=== PATIENT | female | born 1960 | race Hispanic/Latino ===

== ENCOUNTER 2017-11-25 18:40 | Inpatient (IN) | payer SELFPAY ==
--- NOTE | 2017-11-25 19:24 | RAD REPORT ---
EXAM DESCRIPTION: CT - Ct Stroke Brain Wo Cont - 11/25/2017 7:13 pm CLINICAL HISTORY: Bilateral numbness COMPARISON: None. TECHNIQUE: Computed axial tomography of the head was obtained. IV contrast was not requested. All CT scans are performed using dose optimization technique as appropriate and may include automated exposure control or mA/KV adjustment according to patient size. FINDINGS: An intracranial bleed is not seen . The ventricles are normal in caliber. No extra-axial fluid collection is noted. Fluid within the sinuses/ mastoids is not seen. IMPRESSION: No acute intracranial abnormality is seen. If patient's symptoms persist MRI of the bra in would be recommended. Stewart Sharpe the emergency room was notified at 720 p.m. on November 25, 2017
[2017-11-25 19:30] LABS: Absolute Lymphocytes (CBC) 2.7 K/uL (0.7-4.9); Absolute Monocytes 0.6 K/uL (0.1-1.3); Absolute Neutrophil 5.8 K/uL (1.8-8.0); Eosinophils % 3.9 % (0-4.4); Hematocrit 42.1 % (36.0-45.0); Lymphocytes % 27.9 % (15.3-44.8); MCH 30.6 pg (27.0-35.0); MCV 94.4 fL (80-100); MPV 9.1 fL (7.6-11.3); Monocytes % 6.6 % (3.3-12.3); RBC Red Blood Cell Count 4.46 M/uL (3.86-4.86)
[2017-11-25 19:34] LABS: Protime INR 0.97
[2017-11-25 19:37] LABS: Bicarbonate 27 mEq/L (21-31); Glucose Level 121 mg/dL (65-120); Potassium 3.6 mEq/L (3.6-5.0); Sodium Level 139 mEq/L (135-145)
[2017-11-25 19:38] LABS: BUN Blood Urea Nitrogen 12 mg/dL (6-20)
--- NOTE | 2017-11-25 19:45 | RAD REPORT ---
EXAM DESCRIPTION: Mickie Single View11/25/2017 7:14 pm CLINICAL HISTORY: Chest pain COMPARISON: none FINDINGS: The lungs appear clear of acute infiltrate. The heart is normal size IMPRESSION: No acute abnormalities displayed
[2017-11-25] MEDS ORDERED: ALPRAZOLAM 0.25 MG TABLET PO PRN (20:42)
--- NOTE | 2017-11-25 20:57 | ER ---
Nurse's Notes [facility] Name: Ade Holcomb Age: 57 yrs Sex: Female : 1960 Arrival Date: 11/25/2017 Time: 18:45 Bed 17 Private MD: Diagnosis: Cerebral infarction Presentation: 11/25 18:45 Presenting complaint: Child states: at 1730 pt served dinner and was normal. 1800 pt ch told son she felt numb and tingling in elena lower legs equally. then pt states she felt the numbness in elena upper arms. in the car on the way here she started saying repetitive things and then chattering her teeth. pt has been under stress at home. pt now is not talking much, states she feels tingling and numbness in her face. Transition of care: patient was not received from another setting of care. Onset of symptoms was November 25, 2017 at 18:00. Risk Assessment: Do you want to hurt yourself or someone else? Patient reports no desire to harm self or others. Initial Sepsis Screen: Does the patient meet any 2 criteria? No. Patient's initial sepsis screen is negative. Does the patient have a suspected source of infection? No. Patient's initial sepsis screen is negative. Care prior to arrival: None. 18:45 Method Of Arrival: Wheelchair 18:45 Acuity: MERLY 3 ch Triage Assessment: 18:45 General: Appears in no apparent distress. well groomed, Behavior is anxious, ch uncooperative. 18:45 Pain: Complains of pain in head and chest Pain currently is 8 out of 10 on a pain ch scale. Neuro: Level of Consciousness is lethargic, listless, Oriented to person, pt will not speak to me, pt will speak to dr meza and to her family in two word sentences. Panelboard Tank Pumper are weak bilaterally Weakness pt walks on her own, shuffling steps. pt states she has numbness and tingling to elena legs and arms per . pt moves all extremities very slowly and small amounts. . Reports dizziness, numbness tingling. Respiratory: Airway is patent Trachea midline Respiratory effort is even, unlabored, Respiratory pattern is regular, hyperventilation Breath sounds are clear bilaterally. GI: No signs and/or symptoms were reported involving the gastrointestinal system. : No signs and/or symptoms were reported regarding the genitourinary system. Derm: Skin is pale. Musculoskeletal: Circulation, motion, and sensation intact. Capillary refill < 3 seconds, in bilateral fingers. toes. Range of motion: intact in all extremities, Swelling absent. Historical: - Allergies: 19:11 No Known Allergies; ch - PMHx: 19:11 Arthritis; ch - PSHx: 19:11 Unable to obtain; ch - Immunization history:: Adult Immunizations up to date. - Social history:: Smoking status: Patient/guardian denies using tobacco. - Ebola Screening: : Patient negative for fever greater than or equal to 101.5 degrees Fahrenheit, and additional compatible Ebola Virus Disease symptoms Patient denies exposure to infectious person Patient denies travel to an Ebola-affected area in the 21 days before illness onset No symptoms or risks identified at this time. Screenin:17 Abuse screen: Denies threats or abuse. Denies injuries from another. Nutritional ch screening: No deficits noted. Tuberculosis screening: No symptoms or risk factors identified. Fall Risk None identified. 19:25 Patient tolerated one teaspoon of water. No drooling, immediate coughing, gurgling, or jd3 clearing of the throat was noted. The patient tolerated 90mL of water. No drooling, immediate coughing, gurgling, or clearing of the throat was noted. The patient passed the bedside swallow screening. Oral medications may be given as ordered. Contact Physician for further diet orders. Provider notified of bedside swallow screening results: Jeff Cheung MD. Assessment: 18:48 Reassessment: \T\ 1848 Dr. Meza in room to assess pt due to elena arm and leg involvement, ch but only L sided facial involvement. 18:53 Reassessment: code stroke called. 18:54 Reassessment: pt taken to CT on monitoring by me. Zulema in Ct assists. 19:05 Reassessment: Patient appears in no apparent distress at this time. Patient and/or ch family updated on plan of care and expected duration. Pain level reassessed. pt returned from ct. pt moves elena arms and legs, pt removes clip from her hair on her own. pt re adjusts herself in the bed, rolls onto her R side. pt strength is improved after ct, and pt will speak in full sentences. pt color is improved and pt rr is slower. report given to Toan at bedside. Dr. Cheung at bedside with pt to perform stoke scale assessment. 19:05 Derm: Skin is pink, warm \T\ dry. ch 19:05 Reassessment: pt returned from ct. report given at bedside to Toan. ch 19:08 Reassessment: Dr. Cheung at bedside to perform stroke scale. ch 19:20 Reassessment: EKG performed. ch 19:25 General: Appears uncomfortable, Behavior is cooperative, anxious. Pain: Denies pain. jd3 Neuro: Level of Consciousness is awake, alert, obeys commands, Oriented to person, place, time, situation, Appropriate for age Panelboard Tank Pumper are equal bilaterally Moves all extremities. Gait is steady, Speech is normal, Facial symmetry appears normal, Pupils are PERRLA, Intact. Cardiovascular: Heart tones S1 S2 present Capillary refill < 3 seconds Patient's skin is warm and dry. Rhythm is regular. Respiratory: Airway is patent Respiratory effort is even, unlabored, Respiratory pattern is regular, symmetrical, Breath sounds are clear bilaterally. GI: Abdomen is round Bowel sounds present X 4 quads. Patient currently denies nausea, vomiting. : No signs and/or symptoms were reported regarding the genitourinary system. EENT: No signs and/or symptoms were reported regarding the EENT system. Derm: Skin is intact, Skin is dry, Skin is normal, Skin temperature is warm. Musculoskeletal: Circulation, motion, and sensation intact. Range of motion: intact in all extremities. 19:42 Reassessment: X ray at bedside at 1854, lab at bedside at 1855. ch 20:30 Reassessment: Patient appears in no apparent distress at this time. Patient and/or jd3 family updated on plan of care and expected duration. Pain level reassessed. Patient is alert, oriented x 3, equal unlabored respirations, skin warm/dry/pink. Vital Signs: 18:45 BP 156 / 75; Pulse 91; Resp 16; Temp 98.3; Pulse Ox 99% on R/A; Pain 0/10; ch 19:52 BP 134 / 111; Pulse 85; Resp 17 S; Pulse Ox 95% on R/A; Pain 0/10; jd3 20:53 BP 133 / 67; Pulse 77; Resp 18 S; Pulse Ox 95% on R/A; Pain 0/10; jd3 22:37 BP 111 / 79; Pulse 82; Resp 18 S; Pulse Ox 96% on R/A; Pain 0/10; jd3 NIH Stroke Scale Scores: 19:08 NIHSS Score: 1 ch 19:20 NIHSS Score: 1 jd3 20:58 NIHSS Score: 2 gs 22:42 NIHSS Score: 0 jd3 ED Course: 18:45 Patient arrived in ED. ch 18:45 Arm band placed on right wrist. Patient placed in an exam room, on a stretcher, on engine monitor, on pulse oximetry. 18:45 bus monitor on. Pulse ox on. NIBP on. ch 18:45 Warm blanket given. ch 18:46 Jeff Cheung MD is Attending Physician. gs 18:52 Triage completed. ch 19:07 Gail Heath, PAULO is Primary Nurse. ch 19:13 CT Stroke Brain w/o Contrast In Process Unspecified. EDMS 19:14 X-ray completed. Portable x-ray completed in exam room. Patient tolerated procedure kp1 well. 19:15 XRAY Chest (1 view) - STROKE In Process Unspecified. EDMS 19:18 Inserted saline lock: 20 gauge in left antecubital area, using aseptic technique. Blood jd3 collected. 19:20 EKG completed in triage. Results shown to MD. ch 19:25 Patient has correct armband on for positive identification. Placed in gown. Bed in low jd3 position. Call light in reach. Side rails up X2. Adult w/ patient. 19:50 Armand Feng RN is Primary Nurse. jd3 20:55 John Levine MD is Hospitalizing Provider. gs 22:37 No provider procedures requiring assistance completed. Patient admitted, IV remains in jd3 place. Administered Medications: 22:38 Drug: Aspirin Chewable Tablet 324 mg Route: PO; jd3 22:45 Follow up: Response: No adverse reaction jd3 Point of Care Testing: Blood Glucose: 19:20 Blood Glucose: 117 mg/dL; Ranges: Outcome: 20:56 Decision to Hospitalize by Provider. gs 22:45 Admitted to Tele accompanied by tech, room 422, with chart, Report called to Bernie BATES jd3 22:45 Condition: stable 22:45 Instructed on the need for admit, Demonstrated understanding of instructions. 22:50 Patient left the ED. jd3 NIH Stroke Scale - NIH Stroke Score Date: 11/25/2017 Time: 19:08 Total Score = 1 1a. Level of Consciousness (LOC) - 0(Alert) 1b. Level of Consciousness (LOC) (Year \T\ Age) - 0(Both) 1c. LOC Commands (Open \T\ Closes Eyes/Meteorological Equipment Repairer) - 0(Both) 2. Best Gaze (Lateral Gaze Paresis) - 0(Normal) 3. Visual Field Loss - 0(No visual loss) 4. Facial Palsy - 0(Normal) 5a. Left Arm: Motor (10-second hold) - 0(No drift) 5b. Right Arm: Motor (10-second hold) - 0(No drift) 6a. Left Leg: Motor (5-second hold - always test supine) - 0(No drift) 6b. Right Leg: Motor (5-second hold - always test supine) - 0(No drift) 7. Limb Ataxia (finger/nose \T\ heel/rodriguez - test with eyes open) - 1(Present in one limb) 8. Sensory Loss (pinprick arms/legs/face) - 0(Normal) 9. Best Language: Aphasia (description/naming/reading) - 0(No aphasia) 10. Dysarthria (speech clarity - read or repeat words) - 0(Normal) 11. Extinction and Inattention (visual/tactile/auditory/spatial/personal) - 0(No abnormality) Initials: NIH Stroke Scale - NIH Stroke Score Date: 11/25/2017 Time: 19:20 Total Score = 1 1a. Level of Consciousness (LOC) - 0(Alert) 1b. Level of Consciousness (LOC) (Year \T\ Age) - 0(Both) 1c. LOC Commands (Open \T\ Closes Eyes/Meteorological Equipment Repairer) - 0(Both) 2. Best Gaze (Lateral Gaze Paresis) - 0(Normal) 3. Visual Field Loss - 0(No visual loss) 4. Facial Palsy - 0(Normal) 5a. Left Arm: Motor (10-second hold) - 0(No drift) 5b. Right Arm: Motor (10-second hold) - 0(No drift) 6a. Left Leg: Motor (5-second hold - always test supine) - 0(No drift) 6b. Right Leg: Motor (5-second hold - always test supine) - 0(No drift) 7. Limb Ataxia (finger/nose \T\ heel/rodriguez - test with eyes open) - 1(Present in one limb) 8. Sensory Loss (pinprick arms/legs/face) - 0(Normal) 9. Best Language: Aphasia (description/naming/reading) - 0(No aphasia) 10. Dysarthria (speech clarity - read or repeat words) - 0(Normal) 11. Extinction and Inattention (visual/tactile/auditory/spatial/personal) - 0(No abnormality) Initials: jd3 NIH Stroke Scale - NIH Stroke Score Date: 11/25/2017 Time: 20:58 Total Score = 2 1a. Level of Consciousness (LOC) - 0(Alert) 1b. Level of Consciousness (LOC) (Year \T\ Age) - 0(Both) 1c. LOC Commands (Open \T\ Closes Eyes/Meteorological Equipment Repairer) - 0(Both) 2. Best Gaze (Lateral Gaze Paresis) - 0(Normal) 3. Visual Field Loss - 0(No visual loss) 4. Facial Palsy - 0(Normal) 5a. Left Arm: Motor (10-second hold) - 0(No drift) 5b. Right Arm: Motor (10-second hold) - 0(No drift) 6a. Left Leg: Motor (5-second hold - always test supine) - 0(No drift) 6b. Right Leg: Motor (5-second hold - always test supine) - 0(No drift) 7. Limb Ataxia (finger/nose \T\ heel/rodriguez - test with eyes open) - 1(Present in one limb) 8. Sensory Loss (pinprick arms/legs/face) - 1(Mild to moderate loss) 9. Best Language: Aphasia (description/naming/reading) - 0(No aphasia) 10. Dysarthria (speech clarity - read or repeat words) - 0(Normal) 11. Extinction and Inattention (visual/tactile/auditory/spatial/personal) - 0(No abnormality) Initials: NIH Stroke Scale - NIH Stroke Score Date: 11/25/2017 Time: 22:42 Total Score = 0 1a. Level of Consciousness (LOC) - 0(Alert) 1b. Level of Consciousness (LOC) (Year \T\ Age) - 0(Both) 1c. LOC Commands (Open \T\ Closes Eyes/Meteorological Equipment Repairer) - 0(Both) 2. Best Gaze (Lateral Gaze Paresis) - 0(Normal) 3. Visual Field Loss - 0(No visual loss) 4. Facial Palsy - 0(Normal) 5a. Left Arm: Motor (10-second hold) - 0(No drift) 5b. Right Arm: Motor (10-second hold) - 0(No drift) 6a. Left Leg: Motor (5-second hold - always test supine) - 0(No drift) 6b. Right Leg: Motor (5-second hold - always test supine) - 0(No drift) 7. Limb Ataxia (finger/nose \T\ heel/rodriguez - test with eyes open) - 0(Absent) 8. Sensory Loss (pinprick arms/legs/face) - 0(Normal) 9. Best Language: Aphasia (description/naming/reading) - 0(No aphasia) 10. Dysarthria (speech clarity - read or repeat words) - 0(Normal) 11. Extinction and Inattention (visual/tactile/auditory/spatial/personal) - 0(No abnormality) Initials: jd3 Signatures: Dispatcher [employer] EDGail Mora, RN RN Noelle Bustos kp1 Jeff Cheung MD MD gs Davies, Jonathon, RN RN jd3 Corrections: (The following items were deleted from the chart) 19:43 18:45 EKG completed in triage. Results shown to . [facility] 20:54 20:53 Reassessment: Patient appears in no apparent distress at this time. jd3 Patient and/or family updated on plan of care and expected duration. Pain level reassessed. Patient is alert, oriented x 3, equal unlabored respirations, skin warm/dry/pink. jd3
--- NOTE | 2017-11-25 20:57 | EDPHYS ---
Physician Documentation [facility] Name: Ade Holcomb Age: 57 yrs Sex: Female : 1960 Arrival Date: 11/25/2017 Time: 18:45 Bed 17 Private MD: ED Physician Jeff Cheung HPI: 11/25 20:58 This 57 yrs old Female presents to ER via Wheelchair with complaints of gs Numbness Of Face, S/S of Possible Stroke. 20:58 The patient's problem is reported as paresthesias, in left side of face. Onset: The gs symptoms/episode began/occurred at 17:30. Duration: The episode is continuous. The symptoms are alleviated by nothing. The symptoms are aggravated by nothing. Severity of symptoms: At their worst the symptoms were moderate in the emergency department the symptoms are unchanged. It is unknown whether or not the patient has had similar symptoms in the past. Historical: - Allergies: 19:11 No Known Allergies; ch - PMHx: 19:11 Arthritis; ch - PSHx: 19:11 Unable to obtain; ch - Immunization history:: Adult Immunizations up to date. - Social history:: Smoking status: Patient/guardian denies using tobacco. - Ebola Screening: : Patient negative for fever greater than or equal to 101.5 degrees Fahrenheit, and additional compatible Ebola Virus Disease symptoms Patient denies exposure to infectious person Patient denies travel to an Ebola-affected area in the 21 days before illness onset No symptoms or risks identified at this time. ROS: 20:58 All other systems are negative. gs Exam: 20:58 Radiologist reports: no bleed, nad gs 20:58 Head/Face: Normocephalic, atraumatic. Eyes: Pupils equal round and reactive to light, extra-ocular motions intact. Lids and lashes normal. Conjunctiva and sclera are non-icteric and not injected. Cornea within normal limits. Periorbital areas with no swelling, redness, or edema. 20:58 ENT: Nares patent. No nasal discharge, no septal abnormalities noted. Tympanic membranes are normal and external auditory canals are clear. Oropharynx with no redness, swelling, or masses, exudates, or evidence of obstruction, uvula midline. Mucous membranes moist. Neck: Trachea midline, no thyromegaly or masses palpated, and no cervical lymphadenopathy. Supple, full range of motion without nuchal rigidity, or vertebral point tenderness. No Meningismus. Chest/axilla: Normal chest wall appearance and motion. Nontender with no deformity. No lesions are appreciated. Cardiovascular: Regular rate and rhythm with a normal S1 and S2. No gallops, murmurs, or rubs. Normal PMI, no JVD. No pulse deficits. Respiratory: Lungs have equal breath sounds bilaterally, clear to auscultation and percussion. No rales, rhonchi or wheezes noted. No increased work of breathing, no retractions or nasal flaring. Abdomen/GI: Soft, non-tender, with normal bowel sounds. No distension or tympany. No guarding or rebound. No evidence of tenderness throughout. Back: No spinal tenderness. No costovertebral tenderness. Full range of motion. Skin: Warm, dry with normal turgor. Normal color with no rashes, no lesions, and no evidence of cellulitis. MS/ Extremity: Pulses equal, no cyanosis. Neurovascular intact. Full, normal range of motion. 20:58 Constitutional: The patient appears alert, awake. 20:58 ECG was reviewed by the Attending Physician. 20:58 Neuro: Mentation: is normal, Cranial nerves: CN II- XII are normal as tested, Cerebellar function: normal finger to nose testing, Motor: is normal, moves all fours, Sensation: tingling, that is mild, of the left cheek, left episcopalian and left jaw. Vital Signs: 18:45 BP 156 / 75; Pulse 91; Resp 16; Temp 98.3; Pulse Ox 99% on R/A; Pain 0/10; ch 19:52 BP 134 / 111; Pulse 85; Resp 17 S; Pulse Ox 95% on R/A; Pain 0/10; jd3 20:53 BP 133 / 67; Pulse 77; Resp 18 S; Pulse Ox 95% on R/A; Pain 0/10; jd3 22:37 BP 111 / 79; Pulse 82; Resp 18 S; Pulse Ox 96% on R/A; Pain 0/10; jd3 NIH Stroke Scale Scores: 19:08 NIHSS Score: 1 19:20 NIHSS Score: 1 jd3 20:58 NIHSS Score: 2 gs 22:42 NIHSS Score: 0 jd3 MDM: 19:16 Patient medically screened. gs 20:58 Differential diagnosis: CVA, TIA, metabolic disorder, drug effects. Data reviewed: vital signs, nurses notes. Physician consultation: Edi Sanchez MD regarding admission, patient's condition, and will see patient in inpatient room. ED course: discussed with dr sanchez and family as nihss is 2 and debility v risk of tpa decides no TPA. 11/25 19:09 Order name: Basic Metabolic Panel; Complete Time: 19:55 11/25 19:09 Order name: CBC with Diff; Complete Time: 19:55 11/25 19:09 Order name: Protime (+inr); Complete Time: 19:55 11/25 19:09 Order name: Ptt, Activated; Complete Time: 19:55 11/25 19:09 Order name: Urine Microscopic Only; Complete Time: 09:50 11/25 20:47 Order name: Lipid Profile [facility] 11/25 19:08 Order name: XRAY Chest (1 view) - STROKE; Complete Time: 19:55 11/25 19:09 Order name: CT Stroke Brain w/o Contrast; Complete Time: 19:55 11/25 20:47 Order name: Lipid Profile; Complete Time: 09:50 [facility] 11/25 20:47 Order name: Troponin I [facility] 11/25 20:47 Order name: Troponin I; Complete Time: 09:50 [facility] 11/25 20:47 Order name: Troponin I; Complete Time: 09:50 [facility] 11/25 21:48 Order name: Urine Dipstick--Ancillary (enter results) 2 11/25 22:15 Order name: Urine Dipstick-Ancillary; Complete Time: 09:50 [facility] 11/25 19:09 Order name: EKG; Complete Time: 19:09 11/25 19:09 Order name: Accucheck; Complete Time: 19:24 11/25 19:09 Order name: Cardiac monitoring; Complete Time: 19:09 11/25 19:09 Order name: EKG - Nurse/Tech; Complete Time: 19:31 11/25 19:09 Order name: IV Saline Lock; Complete Time: 19:24 11/25 19:09 Order name: Labs collected and sent; Complete Time: 19:24 11/25 19:09 Order name: NPO; Complete Time: 19:31 11/25 19:09 Order name: O2 Per Protocol; Complete Time: 19:24 11/25 19:09 Order name: O2 Sat Monitoring; Complete Time: 19:24 11/25 19:09 Order name: Stroke Swallow Screen; Complete Time: 19:31 11/25 19:09 Order name: Urine Dipstick-Ancillary (obtain specimen); Complete Time: 21:48 11/25 20:47 Order name: Heart Healthy [facility] 11/25 20:47 Order name: Echo with Doppler [facility] 11/25 20:47 Order name: EKG Electrocardiogram [facility] 11/25 20:47 Order name: EKG Electrocardiogram [facility] EC:58 Rate is 85 beats/min. Rhythm is regular. MN interval is normal. QRS interval is normal. gs T waves are Normal. No ST changes noted. Clinical impression: Abnormal EKG without significant change. Interpreted by me. Administered Medications: 22:38 Drug: Aspirin Chewable Tablet 324 mg Route: PO; [facility] 22:45 Follow up: Response: No adverse reaction j Point of Care Testing: Blood Glucose: 19:20 Blood Glucose: 117 mg/dL; Ranges: Critical Glucose Levels:Adult <50 mg/dl or >400 mg/dl <40 mg/dl or >180 mg/dl Disposition: 11/25/17 20:56 Hospitalization ordered by John Levine for Inpatient Admission. Preliminary diagnosis is Cerebral infarction. - Bed requested for Telemetry/MedSurg (Inpatient). - Status is Inpatient Admission. jd3 - Condition is Stable. - Problem is new. - Symptoms have improved. UTI on Admission? No Critical care time excluding procedures: 20:58 Critical care time: Bedside Care: 10 minutes, Consultation: 10 minutes, Family gs Intervention: 10 minutes. Total time: 30 minutes NIH Stroke Scale - NIH Stroke Score Date: 11/25/2017 Time: 19:08 Total Score = 1 1a. Level of Consciousness (LOC) - 0(Alert) 1b. Level of Consciousness (LOC) (Year \T\ Age) - 0(Both) 1c. LOC Commands (Open \T\ Closes Eyes/Poultry Farm Laborer) - 0(Both) 2. Best Gaze (Lateral Gaze Paresis) - 0(Normal) 3. Visual Field Loss - 0(No visual loss) 4. Facial Palsy - 0(Normal) 5a. Left Arm: Motor (10-second hold) - 0(No drift) 5b. Right Arm: Motor (10-second hold) - 0(No drift) 6a. Left Leg: Motor (5-second hold - always test supine) - 0(No drift) 6b. Right Leg: Motor (5-second hold - always test supine) - 0(No drift) 7. Limb Ataxia (finger/nose \T\ heel/rodriguez - test with eyes open) - 1(Present in one limb) 8. Sensory Loss (pinprick arms/legs/face) - 0(Normal) 9. Best Language: Aphasia (description/naming/reading) - 0(No aphasia) 10. Dysarthria (speech clarity - read or repeat words) - 0(Normal) 11. Extinction and Inattention (visual/tactile/auditory/spatial/personal) - 0(No abnormality) Initials: NIH Stroke Scale - NIH Stroke Score Date: 11/25/2017 Time: 19:20 Total Score = 1 1a. Level of Consciousness (LOC) - 0(Alert) 1b. Level of Consciousness (LOC) (Year \T\ Age) - 0(Both) 1c. LOC Commands (Open \T\ Closes Eyes/Poultry Farm Laborer) - 0(Both) 2. Best Gaze (Lateral Gaze Paresis) - 0(Normal) 3. Visual Field Loss - 0(No visual loss) 4. Facial Palsy - 0(Normal) 5a. Left Arm: Motor (10-second hold) - 0(No drift) 5b. Right Arm: Motor (10-second hold) - 0(No drift) 6a. Left Leg: Motor (5-second hold - always test supine) - 0(No drift) 6b. Right Leg: Motor (5-second hold - always test supine) - 0(No drift) 7. Limb Ataxia (finger/nose \T\ heel/rodriguez - test with eyes open) - 1(Present in one limb) 8. Sensory Loss (pinprick arms/legs/face) - 0(Normal) 9. Best Language: Aphasia (description/naming/reading) - 0(No aphasia) 10. Dysarthria (speech clarity - read or repeat words) - 0(Normal) 11. Extinction and Inattention (visual/tactile/auditory/spatial/personal) - 0(No abnormality) Initials: jd3 NIH Stroke Scale - NIH Stroke Score Date: 11/25/2017 Time: 20:58 Total Score = 2 1a. Level of Consciousness (LOC) - 0(Alert) 1b. Level of Consciousness (LOC) (Year \T\ Age) - 0(Both) 1c. LOC Commands (Open \T\ Closes Eyes/Poultry Farm Laborer) - 0(Both) 2. Best Gaze (Lateral Gaze Paresis) - 0(Normal) 3. Visual Field Loss - 0(No visual loss) 4. Facial Palsy - 0(Normal) 5a. Left Arm: Motor (10-second hold) - 0(No drift) 5b. Right Arm: Motor (10-second hold) - 0(No drift) 6a. Left Leg: Motor (5-second hold - always test supine) - 0(No drift) 6b. Right Leg: Motor (5-second hold - always test supine) - 0(No drift) 7. Limb Ataxia (finger/nose \T\ heel/rodriguez - test with eyes open) - 1(Present in one limb) 8. Sensory Loss (pinprick arms/legs/face) - 1(Mild to moderate loss) 9. Best Language: Aphasia (description/naming/reading) - 0(No aphasia) 10. Dysarthria (speech clarity - read or repeat words) - 0(Normal) 11. Extinction and Inattention (visual/tactile/auditory/spatial/personal) - 0(No abnormality) Initials: gs NIH Stroke Scale - NIH Stroke Score Date: 11/25/2017 Time: 22:42 Total Score = 0 1a. Level of Consciousness (LOC) - 0(Alert) 1b. Level of Consciousness (LOC) (Year \T\ Age) - 0(Both) 1c. LOC Commands (Open \T\ Closes Eyes/Poultry Farm Laborer) - 0(Both) 2. Best Gaze (Lateral Gaze Paresis) - 0(Normal) 3. Visual Field Loss - 0(No visual loss) 4. Facial Palsy - 0(Normal) 5a. Left Arm: Motor (10-second hold) - 0(No drift) 5b. Right Arm: Motor (10-second hold) - 0(No drift) 6a. Left Leg: Motor (5-second hold - always test supine) - 0(No drift) 6b. Right Leg: Motor (5-second hold - always test supine) - 0(No drift) 7. Limb Ataxia (finger/nose \T\ heel/rodriguez - test with eyes open) - 0(Absent) 8. Sensory Loss (pinprick arms/legs/face) - 0(Normal) 9. Best Language: Aphasia (description/naming/reading) - 0(No aphasia) 10. Dysarthria (speech clarity - read or repeat words) - 0(Normal) 11. Extinction and Inattention (visual/tactile/auditory/spatial/personal) - 0(No abnormality) Initials: jd3 Signatures: Dispatcher [employer] EDMS Gail Heath, RN RN Krystina Gonzalez RN RN Edgar Sahu MD MD rn Starr, Gregory, MD MD gs Davies, Jonathon, RN RN jd3 Corrections: (The following items were deleted from the chart) 21:55 20:56 Hospitalization Ordered by John Levine MD for Inpatient Admission. kl Preliminary diagnosis is Cerebral infarction. Bed requested for Telemetry/MedSurg (Inpatient). Status is Inpatient Admission. Condition is Stable. Problem is new. Symptoms have improved. UTI on Admission? No. 22:50 21:55 11/25/2017 20:56 Hospitalization Ordered by John Levine MD for jd3 Inpatient Admission. Preliminary diagnosis is Cerebral infarction. Bed requested for Telemetry/MedSurg (Inpatient). Status is Inpatient Admission. Condition is Stable. Problem is new. Symptoms have improved. UTI on Admission? No.
[2017-11-25 22:13] LABS: Urine Bacteria >50 /HPF (<20); Urine Culture Reflex Order REFLEXED; Urine RBC <5 /HPF (NONE SEEN)
[2017-11-25 22:15] LABS: Urine Blood TRACE (NEG); Urine Glucose NEGATIVE (NEG); Urine Protein NEGATIVE (NEG); Urine Specific Gravity 1.015 (1.005-1.030); Urine pH 6.5 (5.0-7.0)
[2017-11-25] MEDS ORDERED: ASPIRIN 81 MG CHEWABLE TABLET ONE (22:36)
[2017-11-25 23:10] VITALS: BMI 28.8
[2017-11-25] MEDS: METOPROLOL TAR 50 MG TAB PO SCH (23:12)
[2017-11-26] MEDS ORDERED: ACETAMINOPHEN 500 MG TAB PO PRN (03:51)
--- NOTE | 2017-11-26 06:37 | P.HP ---
Certification for Inpatient Patient admitted to: Observation With expected LOS: <2 Midnights Patient will require the following post-hospital care: None Practitioner: I am a practitioner with admitting privileges, knowledge of patient current condition, hospital course, and medical plan of care. Services: Services provided to patient in accordance with Admission requirements found in Title 42 Section 412.3 of the Code of Federal Regulations Patient History Date of Service: 11/25/17 History of Present Illness: Patient is a 57-year-old female who came into the hospital with facial numbness. Patient also describes some aphasia and chest discomfort. She said the paresthesias started on the left side of her face as well as numbness and tingling to the left arm. She felt some vague discomfort mid-sternal region. Her symptoms slowly resolved while she was in the emergency room. Patient has serial troponins as well as a CT scan of her head. These have been negative. As patient's symptoms are resolving plan is to go ahead and admit her to the hospital and work-up for possible CVA. Also serial troponins and EKG. MRI of the brain and possible stress test in the morning. Allergies No Known Allergies Allergy (Verified 11/25/17 23:01) Home Medications: Folic Acid 1 mg PO DAILY 11/25/17 Methotrexate Sodium [Methotrexate] 5 tab PO SEECOM 11/25/17 - Past Medical/Surgical History Diabetic: No -: Arthritis Past Surgical History: Patient denies surgical history - Family History Mother Medical History: Diabetes Sister Medical History: Diabetes - Social History Smoking Status: Never smoker Alcohol use: No CD- Drugs: No Place of Residence: Home Review of Systems 10-point ROS is otherwise unremarkable Physical Examination - Vital Signs Temperature: 97.5 F Blood Pressure: 126/62 Pulse: 62 Respirations: 18 Pulse Ox (%): 100 - Physical Exam General: Alert, In no apparent distress, Oriented x3 HEENT: Atraumatic, PERRLA, Mucous membr. moist/pink, EOMI, Sclerae nonicteric Neck: Supple, 2+ carotid pulse no bruit, No LAD, Without JVD or thyroid abnormality Respiratory: Clear to auscultation bilaterally, Normal air movement Cardiovascular: Regular rate/rhythm, Normal S1 S2, No murmurs Gastrointestinal: Normal bowel sounds, Soft and benign, Non-distended, No tenderness Musculoskeletal: No clubbing, No swelling, No tenderness Integumentary: No rashes Neurological: Normal gait, Normal speech, Normal strength at 5/5 x4 extr, Normal tone, Sensation intact, Cranial nerves 3-12 intact, Normal affect Lymphatics: No axilla or inguinal lymphadenopathy - Studies Laboratory Data (last 24 hrs) 11/25/17 19:17: PT 11.5, INR 0.97, APTT 30.3 11/25/17 19:17: WBC 9.6, Hgb 13.7, Hct 42.1, Plt Count 308 11/25/17 19:17: Sodium 139, Potassium 3.6, BUN 12, Creatinine 0.63, Glucose 121 H Assessment & Plan - Problems (Diagnosis) (1) Paresthesias in left hand Current Visit: Yes Status: Acute (2) Aphasia Current Visit: Yes Status: Acute (3) Chest pain, rule out acute myocardial infarction Current Visit: Yes Status: Acute (4) UTI (urinary tract infection) Current Visit: Yes Status: Acute - Plan 1. Serial troponins and EKG 2. Brain MRI 3. Echocardiogram and stress test if cardiology is agreeable 4. Anti-platelet therapy, anti coagulation, beta-lux, statin, and O2 as needed 5. IV hydration and IV antibiotics 6. Observation status and if workup is negative possible discharge home - Advance Directives Does patient have a Living Will: No Does patient have a Durable POA for Healthcare: No - Code Status/Comfort Care Code Status Assessed: Yes Code Status: Full Code Critical Care: No Time Spent Managing PTS Care (In Minutes): 50
--- NOTE | 2017-11-26 07:40 | EKG ---
Test Date: 2017-11-25 Test Time: 19:24:29 Felt Cutting Machine Operator: RIO MEASUREMENT RESULTS: Intervals: Rate: 86 GA: 140 QRSD: 90 QT: 366 QTc: 437 [place]: P: 47 GA: 140 QRS: -48 T: 50 INTERPRETIVE STATEMENTS: Normal sinus rhythm Left anterior fascicular block Abnormal ECG Compared to ECG 10/20/2005 04:49:00 T-wave abnormality no longer present Electronically Signed On 11-26-17 07:40:04 CDT by Raymon Corley
[2017-11-26] MEDS ORDERED: REGADENOSON 0.4 MG/5 ML SYR IV ONE (08:36)
--- NOTE | 2017-11-26 08:42 | EKG ---
Test Date: 2017-11-25 Test Time: 19:24:56 Fine Wire Drawer: RIO MEASUREMENT RESULTS: Intervals: Rate: 85 MA: 140 QRSD: 94 QT: 376 QTc: 447 [place]: P: 53 MA: 140 QRS: -49 T: 67 INTERPRETIVE STATEMENTS: Normal sinus rhythm Left anterior fascicular block Abnormal ECG Compared to ECG 11/25/2017 19:24:29 No significant changes Electronically Signed On 11-26-17 08:41:53 CDT by Raymon Corley
[2017-11-26] MEDS ORDERED: CEFTRIAXONE/SWI 1gm 1 GM/10 ML SYR IV SCH (09:00)
[2017-11-26] MEDS ORDERED: CEFTRIAXONE 1 GM/NS 50 ML 1 GM/50 ML BAG IV SCH (09:00)
[2017-11-26] MEDS ORDERED: ENOXAPARIN 40 MG/0.4 ML SQ SCH (09:00)
[2017-11-26] MEDS: METOPROLOL TAR 50 MG TAB PO SCH (09:00)
[2017-11-26] MEDS ORDERED: ASPIRIN EC 81 MG TAB PO SCH (09:00)
[2017-11-26 09:24] VITALS: O2SAT 99
--- NOTE | 2017-11-26 10:16 | RAD REPORT ---
EXAM DESCRIPTION: MRI - Brain Wo Cont - 11/26/2017 9:51 am CLINICAL HISTORY: Numbness COMPARISON: none TECHNIQUE: Axial, sagittal, and coronal magnetic images of the brain were obtained. Contrast was not requested FINDINGS: Diffusion-weighted/ADC mapping demonstrates a 1.5 millimeter area of abnormal signal within the deep white matter of the posterior left frontal lobe having the appearance of a subacute infarct. The ventricles are normal caliber. An extra-axial fluid collection is not present A 15 millimeter right scalp lipoma is present. The sinuses and mastoids are clear. IMPRESSION: 1.5 millimeter subacute infarct deep white matter posterior left frontal lobe The exam was discussed with Dr. Levine 10 a.m. 11/26/2017
--- NOTE | 2017-11-26 10:45 | TREADPHA ---
DX: CONGESTIVE HEART FAILURE Date of Study: 11/26/17 Ht: 5 6 Wt: 179 lb 0 oz Consulting Physician: KESHIA MEDICATIONS: TYLENOL, XANAX, ASPIRIN, LOVENOX, LOPRESSOR HISTORY: 57 YEAR OLD FEMALE WITH COMPLAINTS OF CHEST PAIN. PHYSICIAL EXAMINATION: RESTING B.P.: 141/63 RESTING H.R.: 68 RESTING EKG: LEFT QRS AXIS OTHERWISE NORMAL EKG PROTOCOL: LEXISCAN EXERCISE TIME: 3:30 B.P. AT PEAK STRESS: 107/46 IMPRESSION: LEXISCAN INJECTED, CARDIOLITE INJECTED PER PROTOCOL. SEE NUCLEAR MEDICINE REPORT. NO SUPRA VENTRICULAR TACHYCARDIA. NO VENTRICULAR TACHYCARDIA. NO PREMATURE VENTRICULAR COMPLEXES. DENIED CHEST PAIN. NON DIAGNOSTIC EKG WITH LEXISCAN STRESS.
--- NOTE | 2017-11-26 10:55 | ECHO ---
HEIGHT: 5 ft 6 in WEIGHT: 179 lb 0 oz DATE OF STUDY: 11/26/[address]: John Levine MD 2-DIMENSIONAL: YES M.MODE: YES DOPPLER: YES COLOR FLOW: YES TDS: YES PORTABLE: NO DEFINITY: NO BUBBLE STUDY: NO DIAGNOSIS: CONGESTIVE HEART FAILURE CARDIAC HISTORY: CATHERIZATION: NO SURGERY: NO PROSTHETIC VALVE: NO PACEMAKER: NO MEASUREMENTS (cm) DIASTOLIC (NORMALS) SYSTOLIC (NORMALS) IVSd 1.0 (0.6-1.2) LA Diam 2.0 (1.9-4.0) LVEF 65% LVIDd 3.1 (3.5-5.7) LVIDs 2.0 (2.0-3.5) %FS 34% LVPWd 1.1 (0.6-1.2) Ao Diam 2.4 (2.0-3.7) 2 DIMENSIONAL ASSESSMENT: RIGHT ATRIUM: NORMAL LEFT ATRIUM: NORMAL RIGHT VENTRICLE: NORMAL LEFT VENTRICLE: NORMAL TRICUSPID VALVE: NORMAL MITRAL VALVE: NORMAL PULMONIC VALVE: NORMAL AORTIC VALVE: NORMAL PERICARDIAL EFFUSION: NONE AORTIC ROOT: NORMAL LEFT VENTRICULAR WALL MOTION: NORMAL. DOPPLER/COLOR FLOW: MILD TRICUSPID REGURGITATION. NORMAL RIGHT VENTRICULAR SYSTOLIC PRESSURE. COMMENTS: NORMAL 2D ECHO. MILD TRICUSPID REGURGITATION. TECHNICALLY DIFFICULT STUDY. TECHNOLOGIST: LIZZ CABALLERO
--- NOTE | 2017-11-26 11:19 | RAD REPORT ---
EXAM DESCRIPTION: NM - Rest Stress Cardiac Imaging - 11/26/2017 11:13 am CLINICAL HISTORY: Chest pain COMPARISON: None. TECHNIQUE: The patient was administered 10.1 mCi of Tc 99m Sestamibi prior to resting SPECT imaging of the heart. The patient was then administered 30.7 mCi of Tc 99m Sestamibi following exercise or ph armacologic stress. Multiplanar SPECT images were reviewed. FINDINGS: The end diastolic volume is 53 ml, the end systolic volume is 18 ml, and the ejection frac tion is 65 %. No stress-induced ischemic changes are identified. A relative decrease in activity along the inferior wall is probably diaphragmatic attenuation rather than scarring. IMPRESSION: No stress-induced ischemia. Relative decrease in activity inferior wall is favored to b e attenuation artifact rather than scarring. Ventricular volumes and ejection fraction are well within normal range.
--- NOTE | 2017-11-26 14:13 | P.PN ---
Subjective Date of Service: 11/26/17 Patient seen and examined at bedside with RN. Chart reviewed. Case discussed with cardiology and neurology at this time. Patient is currently status post stress test an MRI. No complaints to offer at this time. No neurological deficits noted at this time as well. Review of Systems General: As per HPI Physical Examination - Vital Signs Temperature: 97.7 F Blood Pressure: 133/56 Pulse: 65 Respirations: 18 Pulse Ox (%): 99 - Physical Exam General: Alert, In no apparent distress HEENT: Atraumatic, PERRLA, EOMI Neck: Supple, JVD not distended Respiratory: Clear to auscultation bilaterally, Normal air movement Cardiovascular: Regular rate/rhythm, Normal S1 S2 Gastrointestinal: Normal bowel sounds, No tenderness Musculoskeletal: No tenderness Integumentary: No rashes Neurological: Normal speech, Normal tone, Normal affect Lymphatics: No axilla or inguinal lymphadenopathy - Studies Laboratory Data (last 24 hrs) 11/26/17 04:15: Triglycerides 79, Cholesterol 137, HDL Cholesterol 50, Cholesterol/HDL Ratio 2.74 11/26/17 04:15: Troponin I < 0.03 11/25/17 23:46: Troponin I < 0.03 11/25/17 19:17: PT 11.5, INR 0.97, APTT 30.3 11/25/17 19:17: WBC 9.6, Hgb 13.7, Hct 42.1, Plt Count 308 11/25/17 19:17: Sodium 139, Potassium 3.6, BUN 12, Creatinine 0.63, Glucose 121 H Medications List Reviewed: Yes Assessment & Plan - Problems (Diagnosis) (1) Right frontal lobe lesion Current Visit: Yes Status: Acute Plan: Subacute 1.5mm Right frontal lobe Infarction -Neurology consulted. Awaiting reccs -ASA, plavix and Statin on board -PT/OT/ST -ECHO negative (2) Chest pain, rule out acute myocardial infarction Onset Date: 11/26/17 Current Visit: Yes Status: Acute Plan: ACS r.u with Chest Pain -ECHO wnl -Stress Test Negative for any acute ischemia -Cardiology consulted. Appreciate Reccs (3) UTI (urinary tract infection) Onset Date: 11/26/17 Current Visit: Yes Status: Acute Plan: UTI with Gram - rods -IV rocephin Qualifiers: Urinary tract infection type: acute cystitis Hematuria presence: without hematuria Qualified Code(s): N30.00 - Acute cystitis without hematuria Discharge Plan: Home Plan to discharge in: 24 Hours - Code Status/Comfort Care Code Status Assessed: Yes Critical Care: No
--- NOTE | 2017-11-26 15:00 | RAD REPORT ---
EXAM DESCRIPTION: MRI - MRA Head Wo Cont - 11/26/2017 2:27 pm CLINICAL HISTORY: Acute CVA COMPARISON: None. TECHNIQUE: Axial and coronal 3D [id number] image acquisition was performed. 3D rotational images were generated with source and reconstruction images reviewed. FINDINGS: Major veins in venous sinuses are patent. No aneurysm or vascular malformation. Arterial atherosclerotic changes are minimal. No internal carot id or basilar stenosis. IMPRESSION: MRA head examination shows no significant or suspicious finding.
--- NOTE | 2017-11-26 15:03 | RAD REPORT ---
EXAM DESCRIPTION: MRI - MRA Neck W/Wo Cont - 11/26/2017 2:27 pm CLINICAL HISTORY: CVA COMPARISON: MRA head same date, MRI brain same date FINDINGS: MR angiography of the cervical vasculature performed. An 18 milliliter MultiHance gadolini um volume was utilized. Vertebral arteries are codominant. No origin stenosis. No vertebral artery di ssection or acute finding. Aortic arch is 3 vessel origin. There is tortuosity of the left common car otid artery. True stenosis is not suspected. Within the cervical common carotid and internal carotid arteries there is no dissection, focal stenosis or other significant finding. No basilar stenosis. No aneurysm or vascular malformation. IMPRESSION: MRA neck imaging shows no significant or suspicious finding.
[2017-11-26 16:01] VITALS: BP 150/66; TEMP 97
--- NOTE | 2017-11-26 20:01 | CON ---
Reason For Consultation: Consultation called because of a possible stroke. History Of Present Illness: Ms. Holcomb is a 57-year-old right-handed female patient, who comes into hospital on the 25 of November with stroke-like symptoms. Approximately today at 05:30 on november, the patient was eating dinner and sometime after at about 30 minutes after around 6 o' clock she developed numbness in both legs and arms along with some difficulty getting thoughts and wo rds out. Family indicates she had some repetitive words and chattering teeth. She was then brought into [facility] for an evaluation. Her head CT scan was unremarkable. She did not meet cri teria for her tPA as her symptoms could not be reproduced in terms of examination and she apparently was improving. Subsequently, as the following day a brain MRI was done and the study showed a possib le 1.5 mm which is a very small area of left frontal lobe a subacute infarct. It should be noted federico t such a finding does not clearly explain the patient's symptoms. The patient on NIH stroke scale harrell d a total of 2 at the most around 9 o'clock and was subsequently at 0 on the NIH stroke scale without receiving any tPA and she was given a total of 324 mg of aspirin. Since her admission, she has continued to do well and denies any significant residual deficits. Her neck MRA shows no significant stenosis and brain MRI with MRA as well showed no stenosis within the i ntracerebral vessels. Blood work showed normal complete blood count with differential, normal coagul ation panel. Chemistries were unremarkable, except glucose was slightly elevated at 120 range from 1 17 to 120. Her total cholesterol was 137, LDL cholesterol 71, HDL cholesterol of 50. Her cholestero l to HDL ratio of 2.74. Her urinalysis did show 5-10 white blood cells, greater than 50 bacteria, tr roz blood, otherwise negative. Past Medical History: As indicated in addition to arthritis. Family History: Diabetes in mother and sister. Medications At Home: Folic acid 1 mg daily and methotrexate 5 mg daily. Social History: No alcohol, tobacco, or IV drug use. Surgeries: None reported. Review of Systems: No recent fevers, chills, nausea, vomiting, myalgias, arthralgias, headaches, weight change, or rash. No psychiatric complaints. No gastrointestinal or genitourinary complaints. Physical Examination: Vital Signs: Blood pressure 150/66, pulse 79, respiratory rate 18, temperature 97.7, oxygen saturati on 96%-99% on room air. Weight 179 pounds, height 5 feet 6 inches, BMI 28.9. General: Ms. Holcomb is resting comfortably in bed. She is in no acute distress. Speech pathologi st is at the bedside evaluating the patient. HEENT: She is normocephalic, atraumatic. Her sclerae are anicteric. Oropharynx is moist and pink. Neck: Supple. Chest: Clear. Heart: Regular. Extremities: Show no edema, clubbing, or cyanosis. Neurologically: She is alert, oriented to person, place, time, and situation. She has no expressive or receptive aphasias. Cranial nerves show no deficits on II through XII. On her motor examination , she has full strength in the upper and lower extremities, 5/5 proximally and distally. Sensory exa m, she is intact to light touch, temperature in the arms and legs. Coordination intact in the upper and lower extremities. Reflexes are 2+ in upper and lower extremities. Her gait shows good stance a nd stride. Assessment: Ms. Holcomb is a 57-year-old patient with a possible small lacunar infarct. No clear h istory of hypertension, diabetes, or dyslipidemia. The findings on MRI do not explain the patient's clinical symptoms. In any event, her symptoms have resolved to the baseline. It is still possible s he had a transient ischemic attack explaining her symptoms. At some point, the patient may require a n EEG to further evaluate the symptoms. Plan: 1.The patient should continue on aspirin at least 81 mg daily. 2.Should carefully monitor blood pressures and over the next week bring blood pressures back to the systolic of less than 130, diastolic less than 80. 3.After discharge, the patient should follow in Dr. Garcia's clinic 1 month later. MAX/MANNY Voice ID: [id number] Report ID: [id number]
[2017-11-26] MEDS ORDERED: ATORVASTATIN 80 MG TAB PO SCH (21:00)
== END 2017-11-26 18:30 | disposition home or self-care (01) | DRG 65 ==
LOC: ER 18:40 → ERHOLD 20:49 → 4TH 22:19 → OBSVTOIN 11-26 12:04
PROVIDERS: ADMIT Hospitalist; ATTEND Family Medicine
DX: I63.9 Cerebral infarction, unspecified (principal); G81.94 Hemiplegia, unspecified affecting left nondominant side; N39.0 Urinary tract infection, site not specified; R47.01 Aphasia; R29.810 Facial weakness; R29.702 NIHSS score 2
CPT/HCPCS: 36415; 70450; 70544; 70549; 70551; 71045; 78452; 80048; 80061; 81003; 81015; 82962; 84484; 85025; 85610; 85730; 87077; 87086; 87088; 87186; 93005; 93017; 93306; 97163; 99285; A9500; A9577; G0378; J0696; J1650; J2785

== ENCOUNTER 2018-07-30 20:03 | Observation (INO) | payer SELFPAY ==
[2018-07-30 20:36] LABS: Absolute Lymphocytes (CBC) 3.1 K/uL (0.7-4.9); Absolute Monocytes 0.8 K/uL (0.1-1.3); Absolute Neutrophil 5.8 K/uL (1.8-8.0); Basophils % 0.8 % (0-1.3); Eosinophils % 4.4 % (0-4.4); Hematocrit 41.5 % (36.0-45.0); Lymphocytes % 29.9 % (15.3-44.8); Monocytes % 7.7 % (3.3-12.3); RBC Red Blood Cell Count 4.46 M/uL (3.86-4.86)
--- NOTE | 2018-07-30 20:39 | RAD REPORT ---
EXAM DESCRIPTION: CT - Head Brain Wo Cont - 07/30/2018 8:33 pm CLINICAL HISTORY: NUMBNESS Headache, CVA, drowsiness COMPARISON: <Comparisons> TECHNIQUE: All CT scans are performed using dose optimization technique as appropriate and may inclu de automated exposure control or mA/KV adjustment according to patient size. FINDINGS: No intracranial hemorrhage, hydrocephalus or extra-axial fluid collection.Mild brain atrop hy.No areas of brain edema or evidence of midline shift. The paranasal sinuses and mastoids are clear. The calvarium is intact. IMPRESSION: No acute intracranial abnormality. The findings were discussed with Dr. Pratt in the ER on 07/30/2018 at 8:30 p.m. by telephone.
[2018-07-30] MEDS ORDERED: ASPIRIN 81 MG CHEWABLE TABLET ONE (20:48)
[2018-07-30] MEDS ORDERED: CLOPIDOGREL 75 MG TABLET ONE (20:49)
[2018-07-30] MEDS ORDERED: FOLIC ACID 1 MG TABLET ONE (20:49)
[2018-07-30] MEDS ORDERED: NA CHLORIDE 0.9% 1,000 ML ONE (20:49)
--- NOTE | 2018-07-30 20:49 | RAD REPORT ---
EXAM DESCRIPTION: RAD - Chest Single View - 07/30/2018 8:40 pm CLINICAL HISTORY: weakness/paresthesias Chest pain. COMPARISON: Ct Stroke Brain Wo Cont dated 11/25/2017Chest Single View dated 11/25/2017Chest Single View dated 11/25/2017 FINDINGS: Portable technique limits examination quality. The lungs are grossly clear. Small left pleural effusion likely present. The heart is normal in size. No displaced fractures.
[2018-07-30 20:53] LABS: Protime INR 1.02
[2018-07-30 21:02] LABS: ALT/SGPT 19 U/L (12-78); AST/SGOT 18 U/L (15-37); Albumin 3.5 g/dL (3.4-5.0); Alkaline Phosphatase 115 U/L (45-117); BUN Blood Urea Nitrogen 13 mg/dL (7-18); Bicarbonate 29 mmol/L (21-32); Bilirubin Direct < 0.1 mg/dL (0-0.2); Bilirubin Total 0.2 mg/dL (0.2-1.0); Glucose Level 124 mg/dL (74-106); Magnesium 2.1 mg/dL (1.8-2.4); NT PRO-BNP 44 pg/mL (<125); Potassium 3.7 mmol/L (3.5-5.1); Protein, Total 7.6 g/dL (6.4-8.2); Sodium Level 142 mmol/L (136-145); Troponin (Emerg Dept Use Only) < 0.02 ng/mL (0.0-0.045)
[2018-07-30 22:16] LABS: Urine Blood NEGATIVE (NEG); Urine Glucose NEGATIVE (NEG); Urine Protein NEGATIVE (NEG); Urine Specific Gravity 1.015 (1.005-1.030)
--- NOTE | 2018-07-30 22:21 | EDPHYS ---
Physician Documentation [facility] Name: Ade Holcomb Age: 58 yrs Sex: Female : 1960 Arrival Date: 07/30/2018 Time: 20:04 Bed 17 Private MD: Syed Ramirez R ED Physician Dutch Pratt HPI: 07/30 20:29 This 58 yrs old Female presents to ER via Ambulatory with complaints of katy Numbness Of Arm, Numbness Of Face, Headache. 20:29 The patient or guardian complains of numbness right face, hand. The complaints affect katy the dorsal aspect of right forearm, right wrist, right hand and palmar aspect of right forearm. Context: The problem was sustained at home. Onset: The symptoms/episode began/occurred 1.5 hour(s) ago. Modifying factors: The symptoms are alleviated by nothing. Associated signs and symptoms: The patient has no apparent associated signs or symptoms. The patient has not experienced similar symptoms in the past. Historical: - Allergies: 20:27 No Known Allergies; jd3 - Home Meds: 20:27 Methotrexate Sodium Oral [Active]; Folic Acid Oral [Active]; jd3 20:27 Aspirin Oral [Active]; jd3 - PMHx: 20:27 Arthritis; High Cholesterol; jd3 20:27 CVA; jd3 - PSHx: 20:27 None; jd3 - Immunization history:: Adult Immunizations up to date. - Social history:: Smoking status: Patient/guardian denies using tobacco. - Ebola Screening: : Patient negative for fever greater than or equal to 101.5 degrees Fahrenheit, and additional compatible Ebola Virus Disease symptoms. ROS: 20:29 Constitutional: Negative for fever, chills, and weight loss, Eyes: Negative for injury, katy pain, redness, and discharge, ENT: Negative for injury, pain, and discharge, Neck: Negative for injury, pain, and swelling, Cardiovascular: Negative for chest pain, palpitations, and edema, Respiratory: Negative for shortness of breath, cough, wheezing, and pleuritic chest pain, Abdomen/GI: Negative for abdominal pain, nausea, vomiting, diarrhea, and constipation, Back: Negative for injury and pain, : Negative for injury, bleeding, discharge, and swelling, MS/Extremity: Negative for injury and deformity, Skin: Negative for injury, rash, and discoloration, Psych: Negative for depression, anxiety, suicide ideation, homicidal ideation, and hallucinations, Allergy/Immunology: Negative for hives, rash, and allergies, Endocrine: Negative for neck swelling, polydipsia, polyuria, polyphagia, and marked weight changes, Hematologic/Lymphatic: Negative for swollen nodes, abnormal bleeding, and unusual bruising. 20:29 Neuro: Positive for numbness, of the face and right arm. Exam: 20:29 Constitutional: This is a well developed, well nourished patient who is awake, alert, katy and in no acute distress. Head/Face: Normocephalic, atraumatic. Eyes: Pupils equal round and reactive to light, extra-ocular motions intact. Lids and lashes normal. Conjunctiva and sclera are non-icteric and not injected. Cornea within normal limits. Periorbital areas with no swelling, redness, or edema. ENT: Nares patent. No nasal discharge, no septal abnormalities noted. Tympanic membranes are normal and external auditory canals are clear. Oropharynx with no redness, swelling, or masses, exudates, or evidence of obstruction, uvula midline. Mucous membranes moist. Neck: Trachea midline, no thyromegaly or masses palpated, and no cervical lymphadenopathy. Supple, full range of motion without nuchal rigidity, or vertebral point tenderness. No Meningismus. Chest/axilla: Normal chest wall appearance and motion. Nontender with no deformity. No lesions are appreciated. Cardiovascular: Regular rate and rhythm with a normal S1 and S2. No gallops, murmurs, or rubs. Normal PMI, no JVD. No pulse deficits. Respiratory: Lungs have equal breath sounds bilaterally, clear to auscultation and percussion. No rales, rhonchi or wheezes noted. No increased work of breathing, no retractions or nasal flaring. Abdomen/GI: Soft, non-tender, with normal bowel sounds. No distension or tympany. No guarding or rebound. No evidence of tenderness throughout. Back: No spinal tenderness. No costovertebral tenderness. Full range of motion. Female : Normal external genitalia. Skin: Warm, dry with normal turgor. Normal color with no rashes, no lesions, and no evidence of cellulitis. MS/ Extremity: Pulses equal, no cyanosis. Neurovascular intact. Full, normal range of motion. Neuro: Awake and alert, GCS 15, oriented to person, place, time, and situation. Cranial nerves II-XII grossly intact. Motor strength 5/5 in all extremities. Sensory grossly intact. Cerebellar exam normal. Normal gait. Psych: Awake, alert, with orientation to person, place and time. Behavior, mood, and affect are within normal limits. 22:21 Neuro: Orientation: is normal, appropriate for stated age, no acute changes, Mentation: katy is normal, appropriate for stated age, no acute changes, Memory: is normal, appropriate for stated age, no acute changes, Cranial nerves: grossly normal, is grossly normal based on the patient's age, no acute changes, Cerebellar function: is grossly normal, is grossly normal based on the patient's age, no acute changes, Motor: is normal, is grossly normal based on the patient's age, no acute changes, moves all fours, strength is 5/5 in all extremities, Sensation: is normal, no obvious gross deficits, appropriate no acute changes, Gait: not tested. Deep tendon reflexes are 2+ (normal) in the bilateral brachioradialis, bicep, tricep and patellar and Achilles tendons, Babinski testing is normal, seizure activity, is not displayed by the patient. Vital Signs: 20:10 BP 137 / 78; Pulse 93; Resp 17 S; Temp 98.2(O); Pulse Ox 96% on R/A; Weight 80.74 kg jd3 (R); Height 5 ft. 5 in. (165.10 cm) (R); Pain 0/10; 21:48 BP 145 / 71; Pulse 85; Resp 18 S; Pulse Ox 98% on R/A; cc3 22:15 BP 137 / 69; Pulse 77; Resp 18 S; Pulse Ox 98% on R/A; cc3 23:22 BP 146 / 74; Pulse 80; Resp 18 S; Pulse Ox 98% on R/A; cc3 07/31 00:30 BP 131 / 79; Pulse 75; Resp 18 S; Pulse Ox 100% on R/A; cc3 07/30 20:10 Body Mass Index 29.62 (80.74 kg, 165.10 cm) jd3 NIH Stroke Scale Scores: 07/30 20:29 NIHSS Score: 0 katy 20:31 NIHSS Score: 0 cc3 [place] Coma Score: 22:21 Eye Response: spontaneous(4). Verbal Response: oriented(5). Motor Response: obeys [facility] commands(6). Total: 15. MDM: 20:28 Patient medically screened. [facility] 20:32 Data reviewed: vital signs, nurses notes, lab test result(s), EKG, radiologic studies, [facility] CT scan, plain films. 07/30 20:20 Order name: Basic Metabolic Panel; Complete Time: 21: [facility] 07/30 20:20 Order name: CBC with Diff; Complete Time: : [facility] 07/30 20:20 Order name: LFT's; Complete Time: : [facility] 07/30 20:20 Order name: Magnesium; Complete Time: : [facility] 07/30 20:20 Order name: NT PRO-BNP; Complete Time: : [facility] 07/30 20:20 Order name: PT-INR; Complete Time: : [facility] 07/30 20:20 Order name: CT Head Brain wo Cont; Complete Time: : [facility] 07/30 20:20 Order name: Troponin (emerg Dept Use Only); Complete Time: 21: [facility] 07/30 20:20 Order name: XRAY Chest (1 view); Complete Time: : [facility] 07/30 20:20 Order name: Urine Culture [facility] 07/30 20:20 Order name: Urine Microscopic Only [facility] 07/30 20:29 Order name: Sed Rate; Complete Time: 21:59 [facility] 07/30 20:29 Order name: CRP; Complete Time: 21:59 [facility] 07/30 22:11 Order name: Urine Dipstick--Ancillary (enter results); Complete Time: 22:17 [facility] 07/30 20:20 Order name: FSBS; Complete Time: 20:37 [facility] 07/30 20:20 Order name: EKG; Complete Time: 20:23 [facility] 07/30 20:20 Order name: Cardiac monitoring; Complete Time: 21:05 [facility] 07/30 20:20 Order name: EKG - Nurse/Tech; Complete Time: 21:17 [facility] 07/30 20:20 Order name: IV Saline Lock; Complete Time: 21:05 [facility] 07/30 20:20 Order name: Labs collected and sent; Complete Time: 20:37 snw 07/30 20:20 Order name: O2 Per Protocol; Complete Time: 21:05 snw 07/30 20:20 Order name: O2 Sat Monitoring; Complete Time: 21:05 snw 07/30 20:20 Order name: Urine Dipstick-Ancillary (obtain specimen); Complete Time: 23:21 snw 07/30 22:19 Order name: Carotid Artery Bilateral katy Administered Medications: 20:40 Drug: foLIC Acid 1 mg Route: PO; cc3 21:00 Follow up: Response: No adverse reaction cc3 20:40 Drug: PlaVIX 75 mg Route: PO; cc3 21:00 Follow up: Response: No adverse reaction cc3 20:55 Drug: NS 0.9% 1000 ml Route: IV; Rate: 1 bolus; Site: right antecubital; cc3 23:00 Follow up: Response: No adverse reaction; IV Status: Completed infusion; IV Intake: cc3 1000ml 21:04 Not Given (Patient took regular Aspirin at home at 1900H): Aspirin 81 mg PO once cc3 23:15 Drug: Rocephin - (cefTRIAXone) 1 grams Route: IVPB; Infused Over: 30 mins; Site: right cc3 antecubital; 23:33 Follow up: Response: No adverse reaction; IV Status: Completed infusion; IV Intake: [id number] Point of Care Testing: Blood Glucose: 20:37 Blood Glucose: 123 mg/dL; jd3 Ranges: Critical Glucose Levels:Adult <50 mg/dl or >400 mg/dl <40 mg/dl or >180 mg/dl Disposition: 07/30/18 22:21 Hospitalization ordered by Zayda Cesar for Inpatient Admission. Preliminary diagnosis are Cerebral infarction, Urinary tract infection, site not specified. - Bed requested for Telemetry/MedSurg (Inpatient). - Status is Inpatient Admission. cc3 - Condition is Fair. - Problem is new. - Symptoms have improved. UTI on Admission? Yes NIH Stroke Scale - NIH Stroke Score Date: 07/30/2018 Time: 20:29 Total Score = 0 1a. Level of Consciousness (LOC) - 0(Alert) 1b. Level of Consciousness (LOC) (Year \T\ Age) - 0(Both) 1c. LOC Commands (Open \T\ Closes Eyes/Incident Response Engineer) - 0(Both) 2. Best Gaze (Lateral Gaze Paresis) - 0(Normal) 3. Visual Field Loss - 0(No visual loss) 4. Facial Palsy - 0(Normal) 5a. Left Arm: Motor (10-second hold) - 0(No drift) 5b. Right Arm: Motor (10-second hold) - 0(No drift) 6a. Left Leg: Motor (5-second hold - always test supine) - 0(No drift) 6b. Right Leg: Motor (5-second hold - always test supine) - 0(No drift) 7. Limb Ataxia (finger/nose \T\ heel/rodriguez - test with eyes open) - 0(Absent) 8. Sensory Loss (pinprick arms/legs/face) - 0(Normal) 9. Best Language: Aphasia (description/naming/reading) - 0(No aphasia) 10. Dysarthria (speech clarity - read or repeat words) - 0(Normal) 11. Extinction and Inattention (visual/tactile/auditory/spatial/personal) - 0(No abnormality) Initials: [facility] NIH Stroke Scale - NIH Stroke Score Date: 07/30/2018 Time: 20:31 Total Score = 0 1a. Level of Consciousness (LOC) - 0(Alert) 1b. Level of Consciousness (LOC) (Year \T\ Age) - 0(Both) 1c. LOC Commands (Open \T\ Closes Eyes/Incident Response Engineer) - 0(Both) 2. Best Gaze (Lateral Gaze Paresis) - 0(Normal) 3. Visual Field Loss - 0(No visual loss) 4. Facial Palsy - 0(Normal) 5a. Left Arm: Motor (10-second hold) - 0(No drift) 5b. Right Arm: Motor (10-second hold) - 0(No drift) 6a. Left Leg: Motor (5-second hold - always test supine) - 0(No drift) 6b. Right Leg: Motor (5-second hold - always test supine) - 0(No drift) 7. Limb Ataxia (finger/nose \T\ heel/rodriguez - test with eyes open) - 0(Absent) 8. Sensory Loss (pinprick arms/legs/face) - 0(Normal) 9. Best Language: Aphasia (description/naming/reading) - 0(No aphasia) 10. Dysarthria (speech clarity - read or repeat words) - 0(Normal) 11. Extinction and Inattention (visual/tactile/auditory/spatial/personal) - 0(No abnormality) Initials: cc3 Signatures: Dispatcher [employer] Krystina Ware, RN RN Dutch Davila MD MD cha Therrien, Shelly, QUALITATIVE FIELD COORDINATOR-C QUALITATIVE FIELD COORDINATOR-Csnw Armand Feng, RN RN jNeena Darden cc3 Corrections: (The following items were deleted from the chart) 07/31 00:05 07/30 22:21 Hospitalization Ordered by Zayda Cesar MD for Inpatient kl Admission. Preliminary diagnosis is Cerebral infarction; Urinary tract infection, site not specified. Bed requested for Telemetry/MedSurg (Inpatient). Status is Inpatient Admission. Condition is Fair. Problem is new. Symptoms have improved. UTI on Admission? Yes. katy 07/31 01:02 00:05 07/30/2018 22:21 Hospitalization Ordered by Zayda Cesar MD for cc3 Inpatient Admission. Preliminary diagnosis is Cerebral infarction; Urinary tract infection, site not specified. Bed requested for Telemetry/MedSurg (Inpatient). Status is Inpatient Admission. Condition is Fair. Problem is new. Symptoms have improved. UTI on Admission? Yes.
--- NOTE | 2018-07-30 22:21 | ER ---
Nurse's Notes [facility] Name: Ade Holcomb Age: 58 yrs Sex: Female : 1960 Arrival Date: 07/30/2018 Time: 20:04 Bed 17 Private MD: Syed Ramirez R Diagnosis: Cerebral infarction;Urinary tract infection, site not specified Presentation: 07/30 20:08 Presenting complaint: Patient states: "I am having a head ache and weakness on my right jd3 arm and twitching on the right side of face. this is two days now since this head ache started, about an hour since the numbness. Last time this happened they said I had a blood clot in my head and it could maybe grow and get worse.". 20:12 Acuity: MERLY 2 jd3 20:25 Transition of care: patient was not received from another setting of care. Onset of jd3 symptoms was July 30, 2018. Risk Assessment: Do you want to hurt yourself or someone else? Patient reports no desire to harm self or others. Initial Sepsis Screen: Does the patient meet any 2 criteria? No. Patient's initial sepsis screen is negative. Does the patient have a suspected source of infection? No. Patient's initial sepsis screen is negative. Care prior to arrival: None. 20:25 Method Of Arrival: Ambulatory jd3 Triage Assessment: 20:11 Neuro: Reports facial numbness, and numbness and weakness of right arm.. jd3 20:31 Headache History: The patient has had previous headaches and this one is more severe cc3 than previous episodes. General: Appears in no apparent distress. comfortable, Behavior is calm, cooperative, appropriate for age. Pain: Complains of pain in head Pain currently is 5 out of 10 on a pain scale. Pain began 2-3 days ago. Also complains of no other associated symptoms. EENT: No signs and/or symptoms were reported regarding the EENT system. Neuro: Level of Consciousness is awake, alert, obeys commands, Oriented to person, place, time, situation, Appropriate for age. Cardiovascular: Denies chest pain, Patient's skin is warm and dry. Respiratory: Airway is patent Respiratory effort is even, unlabored, Respiratory pattern is regular, symmetrical. GI: Abdomen is round non-distended. : No signs and/or symptoms were reported regarding the genitourinary system. Derm: No signs and/or symptoms reported regarding the dermatologic system. Musculoskeletal: Circulation, motion, and sensation intact. Range of motion: intact in all extremities. Historical: - Allergies: 20:27 No Known Allergies; jd3 - Home Meds: 20:27 Methotrexate Sodium Oral [Active]; Folic Acid Oral [Active]; jd3 20:27 Aspirin Oral [Active]; jd3 - PMHx: 20:27 Arthritis; High Cholesterol; jd3 20:27 CVA; jd3 - PSHx: 20:27 None; jd3 - Immunization history:: Adult Immunizations up to date. - Social history:: Smoking status: Patient/guardian denies using tobacco. - Ebola Screening: : Patient negative for fever greater than or equal to 101.5 degrees Fahrenheit, and additional compatible Ebola Virus Disease symptoms. Screenin:31 Abuse screen: Denies threats or abuse. Denies injuries from another. Nutritional cc3 screening: No deficits noted. Tuberculosis screening: No symptoms or risk factors identified. Patient has been NPO before screening. last meal at 1600H The patient is alert, able to follow commands. The patient does not exhibit slurred or garbled speech The patient is not exhibiting difficulty speaking. The patient does not exhibit difficulty understanding words. The patient is able to swallow own secretions with no drooling or need for suction. Patient tolerated one teaspoon of water. No drooling, immediate coughing, gurgling, or clearing of the throat was noted. The patient tolerated 90mL of water. No drooling, immediate coughing, gurgling, or clearing of the throat was noted. The patient passed the bedside swallow screening. Oral medications may be given as ordered. Contact Physician for further diet orders. Provider notified of bedside swallow screening results: Dutch Pratt MD. Fall Risk Ambulatory Aid- None/Bed Rest/Nurse Assist (0 pts). Gait- Normal/Bed Rest/Wheelchair (0 pts) Mental Status- Oriented to own ability (0 pts). Assessment: 20:31 General: see triage assessment. cc3 21:18 Reassessment: Patient appears in no apparent distress at this time. Patient and/or cc3 family updated on plan of care and expected duration. Pain level reassessed. Patient is alert, oriented x 3, equal unlabored respirations, skin warm/dry/pink. 22:25 Reassessment: Patient appears in no apparent distress at this time. Patient and/or cc3 family updated on plan of care and expected duration. Pain level reassessed. Patient is alert, oriented x 3, equal unlabored respirations, skin warm/dry/pink. 23:36 Reassessment: Patient appears in no apparent distress at this time. Patient and/or cc3 family updated on plan of care and expected duration. Pain level reassessed. Patient is alert, oriented x 3, equal unlabored respirations, skin warm/dry/pink. 07/31 00:35 Reassessment: Patient appears in no apparent distress at this time. Patient and/or cc3 family updated on plan of care and expected duration. Pain level reassessed. Patient is alert, oriented x 3, equal unlabored respirations, skin warm/dry/pink. Room available at 429, report called and handed over to Kasia Pan for continuity of care and management. 01:00 Reassessment: Patient appears in no apparent distress at this time. Patient and/or cc3 family updated on plan of care and expected duration. Pain level reassessed. Patient is alert, oriented x 3, equal unlabored respirations, skin warm/dry/pink. Patient left ER for admission vitally stable by stretcher escorted by lawn care techniciandede Wiseman and the patient's family. Vital Signs: 07/30 20:10 BP 137 / 78; Pulse 93; Resp 17 S; Temp 98.2(O); Pulse Ox 96% on R/A; Weight 80.74 kg jd3 (R); Height 5 ft. 5 in. (165.10 cm) (R); Pain 0/10; 21:48 BP 145 / 71; Pulse 85; Resp 18 S; Pulse Ox 98% on R/A; cc3 22:15 BP 137 / 69; Pulse 77; Resp 18 S; Pulse Ox 98% on R/A; cc3 23:22 BP 146 / 74; Pulse 80; Resp 18 S; Pulse Ox 98% on R/A; cc3 07/31 00:30 BP 131 / 79; Pulse 75; Resp 18 S; Pulse Ox 100% on R/A; cc3 07/30 20:10 Body Mass Index 29.62 (80.74 kg, 165.10 cm) jd3 Marsteller Coma Score: 07/30 22:21 Eye Response: spontaneous(4). Verbal Response: oriented(5). Motor Response: obeys katy commands(6). Total: 15. NIH Stroke Scale Scores: 20:29 NIHSS Score: 0 katy 20:31 NIHSS Score: 0 cc3 ED Course: 20:04 Patient arrived in ED. am2 20:05 Syed Ramirez MD is Private Physician. am2 20:12 Triage completed. jd3 20:12 Arm band placed on. jd3 20:27 Dutch Pratt MD is Attending Physician. katy 20:31 Neena Lafleur is Primary Nurse. cc3 20:31 Patient has correct armband on for positive identification. Placed in gown. Bed in low cc3 position. Call light in reach. Side rails up X2. personnel monitor on. Pulse ox on. NIBP on. 20:34 CT Head Brain wo Cont In Process Unspecified. EDMS 20:41 XRAY Chest (1 view) In Process Unspecified. EDMS 20:55 Inserted saline lock: 20 gauge in right antecubital area, using aseptic technique. cc3 Blood collected. 22:20 Zayda Cesar MD is Hospitalizing Provider. katy 22:56 Carotid Artery Bilateral In Process Unspecified. EDMS 02 00:35 No provider procedures requiring assistance completed. Patient admitted, IV remains in cc3 place. Administered Medications: 07/30 20:40 Drug: foLIC Acid 1 mg Route: PO; cc3 21:00 Follow up: Response: No adverse reaction cc3 20:40 Drug: PlaVIX 75 mg Route: PO; cc3 21:00 Follow up: Response: No adverse reaction cc3 20:55 Drug: NS 0.9% 1000 ml Route: IV; Rate: 1 bolus; Site: right antecubital; cc3 23:00 Follow up: Response: No adverse reaction; IV Status: Completed infusion; IV Intake: cc3 1000ml 21:04 Not Given (Patient took regular Aspirin at home at 1900H): Aspirin 81 mg PO once cc3 23:15 Drug: Rocephin - (cefTRIAXone) 1 grams Route: IVPB; Infused Over: 30 mins; Site: right cc3 antecubital; 23:33 Follow up: Response: No adverse reaction; IV Status: Completed infusion; IV Intake: [id number] Point of Care Testing: Blood Glucose: 20:37 Blood Glucose: 123 mg/dL; jd3 Ranges: Intake: 23:00 IV: 1000ml; Total: 1000ml. cc3 23:33 IV: 50ml; Total: 1050ml. cc3 Outcome: 22:21 Decision to Hospitalize by Provider. [facility] 07/31 00:35 Admitted to Tele accompanied by tech, family with patient, via stretcher, room 429, cc3 with chart, Report called to Kasia Pan Condition: stable Instructed on the need for admit, Demonstrated understanding of instructions. 01:02 Patient left the ED. cc3 NIH Stroke Scale - NIH Stroke Score Date: 07/30/2018 Time: 20:29 Total Score = 0 1a. Level of Consciousness (LOC) - 0(Alert) 1b. Level of Consciousness (LOC) (Year \\T\\ Age) - 0(Both) 1c. LOC Commands (Open \\T\\ Closes Eyes/Tourist Cabin Keeper) - 0(Both) 2. Best Gaze (Lateral Gaze Paresis) - 0(Normal) 3. Visual Field Loss - 0(No visual loss) 4. Facial Palsy - 0(Normal) 5a. Left Arm: Motor (10-second hold) - 0(No drift) 5b. Right Arm: Motor (10-second hold) - 0(No drift) 6a. Left Leg: Motor (5-second hold - always test supine) - 0(No drift) 6b. Right Leg: Motor (5-second hold - always test supine) - 0(No drift) 7. Limb Ataxia (finger/nose \\T\\ heel/rodriguez - test with eyes open) - 0(Absent) 8. Sensory Loss (pinprick arms/legs/face) - 0(Normal) 9. Best Language: Aphasia (description/naming/reading) - 0(No aphasia) 10. Dysarthria (speech clarity - read or repeat words) - 0(Normal) 11. Extinction and Inattention (visual/tactile/auditory/spatial/personal) - 0(No abnormality) Initials: [facility] NIH Stroke Scale - NIH Stroke Score Date: 07/30/2018 Time: 20:31 Total Score = 0 1a. Level of Consciousness (LOC) - 0(Alert) 1b. Level of Consciousness (LOC) (Year \\T\\ Age) - 0(Both) 1c. LOC Commands (Open \\T\\ Closes Eyes/Tourist Cabin Keeper) - 0(Both) 2. Best Gaze (Lateral Gaze Paresis) - 0(Normal) 3. Visual Field Loss - 0(No visual loss) 4. Facial Palsy - 0(Normal) 5a. Left Arm: Motor (10-second hold) - 0(No drift) 5b. Right Arm: Motor (10-second hold) - 0(No drift) 6a. Left Leg: Motor (5-second hold - always test supine) - 0(No drift) 6b. Right Leg: Motor (5-second hold - always test supine) - 0(No drift) 7. Limb Ataxia (finger/nose \\T\\ heel/rodriguez - test with eyes open) - 0(Absent) 8. Sensory Loss (pinprick arms/legs/face) - 0(Normal) 9. Best Language: Aphasia (description/naming/reading) - 0(No aphasia) 10. Dysarthria (speech clarity - read or repeat words) - 0(Normal) 11. Extinction and Inattention (visual/tactile/auditory/spatial/personal) - 0(No abnormality) Initials: cc3 Signatures: Dispatcher [employer] EDMS Dutch Pratt MD MD cha Moreno, Amanda am2 Armand Feng RN RN Neena Lewis cc3 Corrections: (The following items were deleted from the chart) 07/30 20:26 20:08 Presenting complaint: Patient states: "I am having a head ache and jd3 weakness on my right arm and twitching on the right side of face. this is two days now since this has started. Last time this happened they said I had a blood clot in my head and it could maybe grow and get worse." jd3
[2018-07-30 22:24] LABS: Urine Bacteria 20-50 /HPF (<20); Urine RBC NONE SEEN /HPF (NONE SEEN)
[2018-07-30 22:25] LABS: Urine Culture Reflex Order NOT NEEDED; Urine Yeast FEW (NONE SEEN)
[2018-07-30] MEDS ORDERED: NA CHLORIDE 0.9% 50 ML IV ONE (23:26)
[2018-07-30] MEDS ORDERED: CEFTRIAXONE 1000 MG/VIAL ONE (23:26)
[2018-07-31] MEDS ORDERED: ACETAMINOPHEN 500 MG TAB PO PRN (01:31)
[2018-07-31 01:36] VITALS: BMI 30.8
[2018-07-31 01:46] VITALS: O2SAT 98
[2018-07-31] MEDS: NA CHLORIDE 0.9% 1,000 ML IV SCH ×2 (02:14→11:04)
--- NOTE | 2018-07-31 05:48 | P.HP ---
Certification for Inpatient Patient admitted to: Observation With expected LOS: <2 Midnights Practitioner: I am a practitioner with admitting privileges, knowledge of patient current condition, hospital course, and medical plan of care. Services: Services provided to patient in accordance with Admission requirements found in Title 42 Section 412.3 of the Code of Federal Regulations Patient History Date of Service: 07/31/18 Reason for admission: right side of the face paresthesis History of Present Illness: Ms Holcomb is a 58 years old woman with history of arthritis, CVA, dyslipidemia who started about 1900 with tingling in her head, subsequently she had numbness on the right side of the face and right arm. She denied any weakness or visual abnormalities. At the time of my examination, most of his symptoms have resolved, but still remain mild right face numbness. BP at arrival 137/78, CT head showed no acute abnormalities. Lab work mostly unremarkable except mild elevation of CRP. Dr Pratt has discussed the case with Dr English, who has recommended to observe the patient overnight for further neurologic work up. Allergies No Known Allergies Allergy (Verified 11/25/17 23:01) Home Medications: Folic Acid 1 mg PO DAILY 11/25/17 Methotrexate Sodium [Methotrexate] 5 tab PO SEECOM 11/25/17 - Past Medical/Surgical History Has patient received pneumonia vaccine in the past: Yes Diabetic: No -: Arthritis -: CVA -: Hyperlipidemia Past Surgical History: Reviewed- Non-Contributory - Family History Mother -: Diabetes Sister -: Diabetes - Social History Smoking Status: Never smoker Alcohol use: No CD- Drugs: No Caffeine use: Yes Place of Residence: Home Review of Systems 10-point ROS is otherwise unremarkable Physical Examination - Vital Signs Temperature: 97.6 F Blood Pressure: 129/62 Pulse: 80 Respirations: 18 Pulse Ox (%): 100 - Physical Exam General: Alert, In no apparent distress HEENT: Atraumatic, PERRLA, Mucous membr. moist/pink, EOMI, Sclerae nonicteric Neck: Supple, 2+ carotid pulse no bruit, No LAD, Without JVD or thyroid abnormality Respiratory: Clear to auscultation bilaterally, Normal air movement Cardiovascular: Regular rate/rhythm, Normal S1 S2 Gastrointestinal: Normal bowel sounds, No tenderness Musculoskeletal: No tenderness Integumentary: No rashes Neurological: Normal speech, Normal strength at 5/5 x4 extr, Normal tone, Normal affect, Abnormal sensation (right side of the face paresthesis) Lymphatics: No axilla or inguinal lymphadenopathy - Studies Laboratory Data (last 24 hrs) 07/30/18 20:22: PT 12.1, INR 1.02 07/30/18 20:22: WBC 10.2, Hgb 13.9, Hct 41.5, Plt Count 317 07/30/18 20:22: Sodium 142, Potassium 3.7, BUN 13, Creatinine 0.86, Glucose 124 H, Magnesium 2.1, Total Bilirubin 0.2, AST 18, ALT 19, Alkaline Phosphatase 115 Assessment and Plan - Problems (Diagnosis) (1) TIA (transient ischemic attack) Current Visit: Yes Status: Acute (2) Dyslipidemia Current Visit: Yes Status: Acute (3) CVA (cerebral vascular accident) Current Visit: Yes Status: Acute Qualifiers: CVA mechanism: unspecified Qualified Code(s): I63.9 - Cerebral infarction, unspecified - Plan Will admit the patient for possible TIA vs acute CVA. Will order ASA, statins, brain MRI, pending carotid doppler US, [facility]. Dr English will see the patient in AM. - Advance Directives Does patient have a Living Will: No Does patient have a Durable POA for Healthcare: No - Code Status/Comfort Care Code Status Assessed: Yes Code Status: Full Code
[2018-07-31 05:53] LABS: Absolute Lymphocytes (CBC) 2.4 K/uL (0.7-4.9); Absolute Monocytes 0.7 K/uL (0.1-1.3); Basophils % 0.8 % (0-1.3); Eosinophils % 5.2 % (0-4.4); Hematocrit 37.6 % (36.0-45.0); Lymphocytes % 27.9 % (15.3-44.8); MPV 8.9 fL (7.6-11.3); Monocytes % 8.1 % (3.3-12.3); RBC Red Blood Cell Count 4.04 M/uL (3.86-4.86)
[2018-07-31 06:06] LABS: BUN Blood Urea Nitrogen 11 mg/dL (7-18); Bicarbonate 26 mmol/L (21-32); Glucose Level 90 mg/dL (74-106); HDL Cholesterol 47 mg/dL (40-60); LDL Cholesterol, Calculated 37 (<130); Potassium 3.6 mmol/L (3.5-5.1); Sodium Level 144 mmol/L (136-145)
[2018-07-31] MEDS ORDERED: KCL 20 MEQ/100 mL IVPB 20 MEQ/100 ML BAG IV SCH (07:00)
--- NOTE | 2018-07-31 08:18 | EKG ---
Test Date: 2018-07-30 Test Time: 21:13:44 E Mail System Administrator: LOLITA MEASUREMENT RESULTS: Intervals: Rate: 81 NM: 148 QRSD: 94 QT: 390 QTc: 453 Chase: P: 62 NM: 148 QRS: -47 T: 19 INTERPRETIVE STATEMENTS: Normal sinus rhythm Left anterior fascicular block Abnormal ECG Compared to ECG 11/25/2017 19:24:56 No significant changes Electronically Signed On 07-31-18 08:17:46 LOSS PREVENTION OPERATIONS MANAGER by Raymon Corley
[2018-07-31] MEDS ORDERED: ASPIRIN 81 MG CHEWABLE TABLET PO SCH (09:00)
[2018-07-31] MEDS ORDERED: CLOPIDOGREL 75 MG TABLET PO SCH ×2 (09:00→14:43)
--- NOTE | 2018-07-31 09:44 | RAD REPORT ---
EXAM DESCRIPTION: Mickie Butterfield (2 Views)07/31/2018 9:17 am CLINICAL HISTORY: Cough COMPARISON: July 30, 2018 FINDINGS: The lungs appear clear of acute infiltrate. The heart is normal size IMPRESSION: No acute abnormalities displayed
--- NOTE | 2018-07-31 10:10 | RAD REPORT ---
EXAM DESCRIPTION: MRI - Brain W/Wo Cont - 07/31/2018 9:10 am CLINICAL HISTORY: CVA, stroke-like symptoms COMPARISON: CT head July 30, MRI November 2017 TECHNIQUE: Sagittal and axial T1-weighted images were obtained. Axial PD/heavily T2-weighted and T2- FLAIR images were obtained along with axial DWI/ADC mapping sequences. Coronal heavily T2 weighted s equence obtained. Axial and coronal post-contrast T1-weighted images were also obtained. A 19 ml Mul tihance contrast following utilized. FINDINGS: No intracranial hemorrhage, mass or acute infarction. There is no edema or shift of midli ne structures. No extra-axial fluid collections. Alvarez-matter/white matter junction is preserved. Sig nal voids are seen as a normal finding in the major intracranial vessels. No significant atrophy ruffin ges are noted. Patient has trace amounts of chronic ischemic change in the cerebral white matter. Ratna echevarria matches the November 2017 study. Post-contrast images show normal enhancement. No dural thickening. Mastoid air cells and paranasal sinuses are clear. No globe or orbital content abnormality. Patient has a normal variant empty sella configuration. No t onsillar ectopia. IMPRESSION: No acute infarction changes. No acute intracranial findings noted. Patient has trace amounts of chronic ischemic change in the cerebral white matter matching the November 22 study.
[2018-07-31] MEDS ORDERED: METHOTREXATE 2.5 MG TAB PO SCH (12:00)
[2018-07-31] MEDS: METHYLPREDNISOLONE 40 MG INJ IV SCH ×2 (12:06→18:47)
--- NOTE | 2018-07-31 14:14 | RAD REPORT ---
EXAM DESCRIPTION: USCarotid Artery Bilateral07/30/2018 10:56 pm CLINICAL HISTORY: Numbness COMPARISON: None FINDINGS: The velocity of the right internal carotid artery equals 117 cm/sec. The right ICA/CCA rat io 1.9 The velocity of the left internal carotid artery equals 127 cm/sec. The left ICA/CCA ratio 1.4 Mild plaque is present within the carotid arteries. The vertebral arteries demonstrate antegrade flow IMPRESSION: Mild plaque within the carotid arteries without evidence of a hemodynamically significan t stenosis NASCET criteria used. Mild 0-49% stenosis Moderate 50-69% stenosis Severe 70-99% stenosis
--- NOTE | 2018-07-31 16:58 | ECHO ---
HEIGHT: 5 ft 5 in WEIGHT: 185 lb 4.8 oz DATE OF STUDY: 07/31/[address]: Zayda Severino MD 2-DIMENSIONAL: YES M.MODE: YES DOPPLER: YES COLOR FLOW: YES TDS: YES PORTABLE: DEFINITY: BUBBLE STUDY: DIAGNOSIS: STROKE CARDIAC HISTORY: CATHERIZATION: NO SURGERY: NO PROSTHETIC VALVE: NO PACEMAKER: NO MEASUREMENTS (cm) DIASTOLIC (NORMALS) SYSTOLIC (NORMALS) IVSd 1.1 (0.6-1.2) LA Diam 3.5 (1.9-4.0) LVEF 70% LVIDd 3.3 (3.5-5.7) LVIDs 2.0 (2.0-3.5) %FS 39% LVPWd 1.1 (0.6-1.2) Ao Diam 2.7 (2.0-3.7) 2 DIMENSIONAL ASSESSMENT: RIGHT ATRIUM: NORMAL LEFT ATRIUM: NORMAL RIGHT VENTRICLE: NORMAL LEFT VENTRICLE: NORMAL TRICUSPID VALVE: NORMAL MITRAL VALVE: NORMAL PULMONIC VALVE: NORMAL AORTIC VALVE: NORMAL PERICARDIAL EFFUSION: NONE AORTIC ROOT: NORMAL LEFT VENTRICULAR WALL MOTION: NORMAL DOPPLER/COLOR FLOW: MILD TRICUSPID REGURGITATION. NORMAL RIGHT VENTRICULAR SYSTOLIC PRESSURE. COMMENTS: NORMAL TWO DIMENSIONAL ECHOCARDIOGRAM. MILD TRICUSPID REGURGITATION. TECHNOLOGIST: SEBAS PATTERSON
[2018-07-31 20:56] VITALS: BP 130/60; TEMP 98.4
[2018-07-31] MEDS ORDERED: ATORVASTATIN 80 MG TAB PO SCH (21:00)
--- NOTE | 2018-08-01 01:44 | CON ---
Date of Consultation: 07/31/2018 Time: 2009. Reason: Possible stroke. History: A 58-year-old lady with a history of hyperlipidemia, prior stroke/TIA over the summer. She was in her usual state of health until about 3 days ago when she started developing hea dache generally on the right. The patient did not seek medical attention. She is normally on methot rexate for arthritis as well as Plavix, aspirin, and a statin. Then, yesterday about 7 p.m., develop ed paresthesias in the right side of the face and the right arm with some twitching to the eyelid. D enies vision changes, dysarthria, or extremity weakness. Came to the emergency department. She was concerned she might be having a stroke. CT scan and standard labs in the emergency department were u nremarkable. EKG was sinus rhythm with a left anterior fascicular block. She is being admitted. Sh wilda has had a brain MRI, does not demonstrate any evidence of an acute infarct. Trace minor ischemic c hanges. Carotid Doppler; no stenosis. Echocardiogram, no thrombus. Labs; sedimentation rate normal , 17; CRP, normal, slightly elevated at 4. Of note, the patient was likely volume depleted. GFR was 67 on admission and it is 90 today with a creatinine of 0.86, down to 0.49. LDL 37, at goal. Sympt oms have largely improved if not resolved. She still has a slight headache and slight residual pares thesias on the right cheek, that are subjective. Consultation was requested. Past Medical History: As alluded to. Routine Medications: Folic acid, methotrexate, Plavix, Lipitor, and aspirin, which have been continu ed here. Allergies: NONE. Social History: Primarily Salvadorean-speaking. Does not drink. Does not smoke. Normally independent activities of daily living. Family History: No family history of premature vascular disease. Review of Systems: General: General good health. Eyes: Denies. Ears, Nose, and Throat: Denies. Cardiovascular: Blood pressure normal here. Pulmonary: Negative. GI: Negative. : Negative. Musculoskeletal: Arthritis. Neurologic: As noted. Psychiatric: Negative. Endocrine: Negative. Hematologic: Negative. Physical Examination: Vital Signs: Temperature 98.6, pulse 73, respiratory rate 22, blood pressure 134/64. General: Pleasant Latin-Bhutanese lady, lying in bed, in no distress. Awake, alert, and oriented to time, person, place, and situation. Heart: Sinus rhythm. No carotid bruits. Lungs: Clear. Abdomen: Soft. Bowel sounds present. Neurologic: Pupils equal, round, and reactive. Ocular motion full without nystagmus. Visual oh full to confrontation bilaterally. Facial strength and sensation are normal. Tongue protrudes even ly. Soft palate elevates symmetrically bilaterally. Extremity strength full. Sensation intact. Fa cial sensation intact to primary modalities despite her complaint of paresthesias. Reflexes 2/4. To es are downgoing. Cerebellar exam demonstrates no ataxia. Pertinent Laboratory Data: Imaging and labs as noted in history of present illness. Impression: Possible TIA. Plan: I think, she is stable to be discharged to home. There is no evidence of an infarct on imagin g. Symptoms have largely resolved and certainly improved quite a bit. I would recommend considering an outpatient EEG to evaluate these now recurring episodes in more detail. Her primary care physici an is Dr. Ramirez. Thank you for the consult. LANETTE/MANNY Voice ID: [id number] Report ID: [id number]
--- NOTE | 2018-08-01 05:15 | DS ---
Date of Discharge: 07/31/2018 Consultants: Dr. English with Neurology. Discharge Diagnoses: 1.Transient ischemic attack. 2.Dyslipidemia. 3.History of cerebrovascular accident. 4.Obesity. Body mass index of 30. 5.Generalized osteoarthritis, multiple sites. Hospital Course: The patient is a 58-year-old female who has history of CVA back in November, 1.5 mm pos terior left frontal lobe lesion as well as dyslipidemia, who comes in with tingling on the right side of her face along with headache. The patient also reported some numbness on the right side of the f roz and the right arm. There is no facial droopiness or visual abnormalities. The patient's head CT scan showed no acute abnormalities. CRP was elevated. The patient was admitted for further evaluat ion. Dr. English with Neurology was consulted. The patient's workup showed MRI of the brain, which di d not show any acute infarction changes. However, the pattern was similar to the November 2017 study and showed trace amounts of chronic ischemic changes in cerebral white matter. The patient also has a n ormal variant empty sella configuration; however, no tonsillar ectopia. Patient's carotid artery ult rasound showed mild plaque within the carotid arteries without evidence of hemodynamically significan t stenosis. The patient had an echocardiogram in November, which was normal. No shunt. The patient's c holesterol study was normal. Her ESR was also normal. The patient was evaluated by Neurology. The patient was started on stroke guidelines, aspirin, Plavix, and high-dose statin. She was counseled r egarding her diet and exercise regimen. The patient's daughter does report that she had run out of h er cholesterol medications. The patient was given trial of steroids for possible Ghosh's palsy; did s how some improvement. The patient's headache also improved. The patient was then cleared for discha rge and was sent home in a stable condition. Activity: As tolerated. Medications: As per medication reconciliation list. Diet: Heart healthy, calorie restricted diet. Followup: Follow up with PCP in 2-3 days. Follow up with neurologist, Dr. English, in 2 weeks. Retur n to ER for worsening condition. Physical Examination: General: Awake, alert, oriented x3. No acute distress. CV: S1, S2. Regular rate and rhythm. Peripheral pulses present. Respiratory: Moving air well bilaterally. No wheezing or stridor. No use of accessory muscles. Gastrointestinal: Abdomen is soft, nontender, nondistended. Positive bowel sounds. Extremities: No clubbing, cyanosis, or edema. Neuro: Slight numbness and tingling on the right side of her face. No focal neurological deficit. /MANNY Voice ID: [id number] Report ID: [id number]
[2018-08-01] MEDS ORDERED: FOLIC ACID 1 MG TABLET PO SCH (09:00)
== END 2018-07-31 21:15 | disposition home or self-care (01) ==
LOC: ER 20:03 → ERHOLD 07-31 00:01 → 4TH 07-31 00:44
PROVIDERS: ADMIT Internal Medicine; ATTEND Internal Medicine
DX: G45.9 Transient cerebral ischemic attack, unspecified (principal); E78.5 Hyperlipidemia, unspecified; E66.9 Obesity, unspecified; Z68.30 Body mass index [BMI] 30.0-30.9, adult; M15.9 Polyosteoarthritis, unspecified; Z86.73 Personal history of transient ischemic attack (TIA), and cerebral infarction without residual deficits
CPT/HCPCS: 36415; 70450; 70553; 71045; 71046; 80048; 80061; 80076; 81003; 81015; 82962; 83735; 83880; 84484; 85025; 85610; 85652; 86140; 87077; 87086; 87088; 87186; 92610; 93005; 93306; 93880; 96361; 96365; 97163; 99285; A9577; G0378; J2920; J7030

== ENCOUNTER 2019-09-02 22:27 | Emergency (ER) | payer SELFPAY ==
[2019-09-02] MEDS ORDERED: FOLIC ACID 5 MG/ML VIAL ONE (22:47)
[2019-09-02] MEDS ORDERED: NA CHLORIDE 0.9% 1,000 ML ONE (22:47)
[2019-09-02] MEDS ORDERED: ASPIRIN 81 MG CHEWABLE TABLET ONE (23:15)
[2019-09-02 23:24] LABS: Urine Blood TRACE (NEG); Urine Glucose NEGATIVE (NEG); Urine Protein NEGATIVE (NEG)
[2019-09-02 23:30] LABS: Basophils % 0.7 % (0-1.3); Hematocrit 40.1 % (36.0-45.0); Lymphocytes % 32.1 % (15.3-44.8); MPV 8.7 fL (7.6-11.3)
[2019-09-02 23:35] LABS: Protime INR 1.04
[2019-09-02 23:46] LABS: BUN Blood Urea Nitrogen 8 mg/dL (7-18); Bicarbonate 26 mmol/L (21-32); Glucose Level 108 mg/dL (74-106); NT PRO-BNP 33 pg/mL (<125); Potassium 3.3 mmol/L (3.5-5.1); Sodium Level 141 mmol/L (136-145)
--- NOTE | 2019-09-02 23:48 | ER ---
Nurse's Notes [facility] Name: Ade Holcomb Age: 59 yrs Sex: Female : 1960 Arrival Date: 09/02/2019 Time: 22:28 Bed 4 Private MD: Diagnosis: Weakness;Transient cerebral ischemic attack, unspecified Presentation: 09/01 22:30 Chief complaint: Patient's son or daughter states: Daughter states patient has been lp1 feeling generalized weakness, dizziness x 2 days; States numbness around mouth that began about 3 hours ago with light sensitivity; Hx of CVA, states similar symptoms. 22:30 Coronavirus screen: The patient has NOT traveled to a country currently being monitored lp1 by the [facility] within the last 14 days. The patient has NOT had contact with any known and/or suspected case of coronavirus. Ebola Screen: No symptoms or risks identified at this time. No acute neurological deficit is noted. Pre-hospital glucose is not applicable to this patient. Initial Sepsis Screen: Does the patient meet any 2 criteria? No. Patient's initial sepsis screen is negative. Does the patient have a suspected source of infection? No. Patient's initial sepsis screen is negative. Risk Assessment: Do you want to hurt yourself or someone else? Patient reports no desire to harm self or others. Onset of symptoms was September 02, 2019 at 19:30. 22:30 Method Of Arrival: Wheelchair lp1 22:30 Acuity: MERLY 2 lp1 Triage Assessment: 23:19 The onset of the patients symptoms was September 02, 2019 at 19:30. lp1 Stroke Activation: Symtpom onset >3 hours and < 6 hours Physician: Stroke Attending; Name: Dr. Pratt; Notified At: 22:32; Arrived At: 22:32 Physician: Chief Stroke Resident; Name: ; Notified At: 22:32; Arrived At: Physician: Stroke Resident; Name: ; Notified At: 22:32; Arrived At: Physician: ED Attending; Name: ; Notified At: 22:32; Arrived At: Physician: ED Resident; Name: ; Notified At: 22:32; Arrived At: Historical: - Allergies: 23:03 No Known Allergies; lp1 - Home Meds: 23:03 None [Active]; lp1 - PMHx: 23:03 Arthritis; CVA; High Cholesterol; lp1 - PSHx: 23:03 None; lp1 - Immunization history:: Adult Immunizations up to date. - Social history:: Smoking status: Patient denies any tobacco usage or history of. - Family history:: not pertinent. Screenin:05 Patient has been NPO before screening. The patient is alert, able to follow commands. lp1 The patient does not exhibit slurred or garbled speech The patient is not exhibiting difficulty speaking. The patient does not exhibit difficulty understanding words. The patient is able to swallow own secretions with no drooling or need for suction. Patient tolerated one teaspoon of water. No drooling, immediate coughing, gurgling, or clearing of the throat was noted. The patient tolerated 90mL of water. No drooling, immediate coughing, gurgling, or clearing of the throat was noted. The patient passed the bedside swallow screening. Oral medications may be given as ordered. Contact Physician for further diet orders. Provider notified of bedside swallow screening results: Dutch Pratt MD. 23:16 Abuse screen: Denies threats or abuse. Denies injuries from another. Nutritional lp1 screening: No deficits noted. Tuberculosis screening: No symptoms or risk factors identified. Fall Risk Total Shirley Fall Scale indicates High Risk Score (45 or more points). Fall prevention measures have been instituted. Side Rails Up X 2 As available patient and family educated on Fall Prevention Program and Strategies. Assessment: 22:30 VAN Scoring: Arm Drift: Patients demonstrates NO arm weakness. Patient is VAN Negative. lp1 22:45 General: Appears in no apparent distress. Behavior is calm. Pain: Denies pain. Neuro: lp1 Level of Consciousness is awake, alert, obeys commands, Oriented to person, place, time, situation, Soap Mixer are equal bilaterally Moves all extremities. Full function Gait is unsteady, Speech is normal, minimal droop to left eye brow. Intact Reports dizziness, since 2 days ago weakness generalized. Cardiovascular: Capillary refill < 3 seconds in bilateral fingers toes Patient's skin is warm and dry. Respiratory: Respiratory effort is even, unlabored, Respiratory pattern is regular, Breath sounds are clear bilaterally. GI: Abdomen is non-distended. : No signs and/or symptoms were reported regarding the genitourinary system. EENT: No signs and/or symptoms were reported regarding the EENT system. Derm: Skin is pink, warm \T\ dry. Musculoskeletal: No deficits noted. 23:05 Patient has been NPO before screening. The patient is alert, and able to follow lp1 commands. The patient does not exhibit slurred or garbled speech. The patient is not exhibiting difficulty speaking. The patient does not exhibit difficulty understanding words. The patient is able to swallow own secretions with no drooling or need for suction. Patient tolerated one teaspoon of water. No drooling, immediate coughing, gurgling, or clearing of the throat was noted. The patient tolerated 90mL of water. No drooling, immediate coughing, gurgling, or clearing of the throat was noted. The patient passed the bedside swallow screening. Oral medications may be given as ordered. Contact Physician for further diet orders. Provider notified of bedside swallow screening results: Dutch Pratt MD. 23:05 T-PA (Activase) Screening:. lp1 23:07 Reassessment: Verbal order per Dr. Pratt for ASA 324mg PO now. lp1 23:15 Reassessment: lab at bedside to collect blood samples. lp1 09/02 00:10 Reassessment: Patient appears in no apparent distress at this time. Patient is alert, lp1 oriented x 3, equal unlabored respirations, skin warm/dry/pink. Patient's family states she would like to go home rather than be admitted; Dr. Pratt at bedside to discuss plan of care and precautions to have further neuro imaging in AM and neuro checks throughout night. Patient and family demonstrate understanding and agree to stay for admission Patient states feeling better. 01:00 Reassessment: family at bedside states patient is requesting to go home, states feeling lp1 better; Patient speaking to family in German, interpreting wanting to go home and follow up with her doctor; Precautions explained again for patient and family, states demonstrates understanding; Dr. Pratt notified. 01:15 Reassessment: Instructions explained to patient and family of need to return if lp1 symptoms return or worsen; instructions given for follow up with neurology and prescriptions given x2. Vital Signs: 09/01 22:30 BP 156 / 82; Pulse 85; Resp 20; Temp 98.3(O); Pulse Ox 100% on R/A; Weight 81.65 kg lp1 (R); Height 5 ft. 7 in. (170.18 cm); Pain 0/10; 23:30 BP 145 / 71; Pulse 80; Resp 15; Pulse Ox 100% on R/A; lp1 09/02 00:00 BP 158 / 81; Pulse 83; Resp 19; Pulse Ox 100% on R/A; lp1 01:00 BP 142 / 68; Pulse 81; Resp 20; Pulse Ox 98% on R/A; lp1 03 22:30 Body Mass Index 28.19 (81.65 kg, 170.18 cm) lp1 NIH Stroke Scale Scores: 03 22:45 NIHSS Score: 1 lp1 22:45 NIHSS Score: 1 lp1 23:44 NIHSS Score: 0 [facility] ED Course: 22:28 Patient arrived in ED. jg7 22:33 Dutch Pratt MD is Attending Physician. katy 22:35 Missed attempt(s): 20 gauge in left antecubital area. Bleeding controlled, band aid ds4 applied, catheter tip intact. 22:[address] via stretcher. lp1 22:47 X-ray(s) taken. lp1 22:50 Patient has correct armband on for positive identification. Placed in gown. Bed in low lp1 position. classroom monitor on. Pulse ox on. NIBP on. 22:52 CT Stroke Brain w/o Contrast In Process Unspecified. EDMS 22:53 Stroke CXR 1 View In Process Unspecified. EDMS 23:00 Triage completed. lp1 23:00 Arm band placed on. lp1 23:05 Inserted saline lock: 20 gauge in left forearm, using aseptic technique. Blood ds4 collected. 23:13 Ileana Antunez, RN is Primary Nurse. lp1 23:19 Urine Culture Sent. ds4 23:46 John Levine MD is Hospitalizing Provider. katy 09/02 00:23 No provider procedures requiring assistance completed. Patient admitted, IV remains in lp1 place. 00:43 Chest Pa And Lat (2 Views) In Process Unspecified. EDMS 01:15 Edi Garcia MD is Referral Physician. katy Administered Medications: 09/01 23:10 Drug: NS 0.9% 1000 ml Route: IV; Rate: 1 bolus; Site: left forearm; lp1 23:10 Drug: foLIC Acid 1 mg Route: IVPB; Site: left forearm; lp1 23:10 Drug: Aspirin Chewable Tablet 324 mg Route: PO; lp1 09/02 00:00 Follow up: Response: No adverse reaction lp1 00:10 Drug: Potassium Effervescent Tablet 25 mEq Route: PO; 01:00 Follow up: Response: No adverse reaction lp1 Point of Care Testing: Blood Glucose: 09/01 22:32 Blood Glucose: 113 mg/dL; lp1 Ranges: Outcome: 23:47 Decision to Hospitalize by Provider. [facility] 09/02 00:23 Condition: stable lp1 Instructed on the need for admit. 01:15 AMA AMA form signed lp1 01:25 Patient left the ED. lp1 NIH Stroke Scale - NIH Stroke Score Date: 09/02/2019 Time: 22:45 Total Score = 1 1a. Level of Consciousness (LOC) - 0(Alert) 1b. Level of Consciousness (LOC) (Year \T\ Age) - 0(Both) 1c. LOC Commands (Open \T\ Closes Eyes/Residential Remodeling Subcontractor) - 0(Both) 2. Best Gaze (Lateral Gaze Paresis) - 0(Normal) 3. Visual Field Loss - 0(No visual loss) 4. Facial Palsy - 1(Minor Paralysis) 5a. Left Arm: Motor (10-second hold) - 0(No drift) 5b. Right Arm: Motor (10-second hold) - 0(No drift) 6a. Left Leg: Motor (5-second hold - always test supine) - 0(No drift) 6b. Right Leg: Motor (5-second hold - always test supine) - 0(No drift) 7. Limb Ataxia (finger/nose \T\ heel/rodriguez - test with eyes open) - 0(Absent) 8. Sensory Loss (pinprick arms/legs/face) - 0(Normal) 9. Best Language: Aphasia (description/naming/reading) - 0(No aphasia) 10. Dysarthria (speech clarity - read or repeat words) - 0(Normal) 11. Extinction and Inattention (visual/tactile/auditory/spatial/personal) - 0(No abnormality) Initials: lp1 NIH Stroke Scale - NIH Stroke Score Date: 09/02/2019 Time: 22:45 Total Score = 1 1a. Level of Consciousness (LOC) - 0(Alert) 1b. Level of Consciousness (LOC) (Year \T\ Age) - 0(Both) 1c. LOC Commands (Open \T\ Closes Eyes/Residential Remodeling Subcontractor) - 0(Both) 2. Best Gaze (Lateral Gaze Paresis) - 0(Normal) 3. Visual Field Loss - 0(No visual loss) 4. Facial Palsy - 1(Minor Paralysis) 5a. Left Arm: Motor (10-second hold) - 0(No drift) 5b. Right Arm: Motor (10-second hold) - 0(No drift) 6a. Left Leg: Motor (5-second hold - always test supine) - 0(No drift) 6b. Right Leg: Motor (5-second hold - always test supine) - 0(No drift) 7. Limb Ataxia (finger/nose \T\ heel/rodriguez - test with eyes open) - 0(Absent) 8. Sensory Loss (pinprick arms/legs/face) - 0(Normal) 9. Best Language: Aphasia (description/naming/reading) - 0(No aphasia) 10. Dysarthria (speech clarity - read or repeat words) - 0(Normal) 11. Extinction and Inattention (visual/tactile/auditory/spatial/personal) - 0(No abnormality) Initials: lp1 NIH Stroke Scale - NIH Stroke Score Date: 09/02/2019 Time: 23:44 Total Score = 0 1a. Level of Consciousness (LOC) - 0(Alert) 1b. Level of Consciousness (LOC) (Year \T\ Age) - 0(Both) 1c. LOC Commands (Open \T\ Closes Eyes/Residential Remodeling Subcontractor) - 0(Both) 2. Best Gaze (Lateral Gaze Paresis) - 0(Normal) 3. Visual Field Loss - 0(No visual loss) 4. Facial Palsy - 0(Normal) 5a. Left Arm: Motor (10-second hold) - 0(No drift) 5b. Right Arm: Motor (10-second hold) - 0(No drift) 6a. Left Leg: Motor (5-second hold - always test supine) - 0(No drift) 6b. Right Leg: Motor (5-second hold - always test supine) - 0(No drift) 7. Limb Ataxia (finger/nose \T\ heel/rodriguez - test with eyes open) - 0(Absent) 8. Sensory Loss (pinprick arms/legs/face) - 0(Normal) 9. Best Language: Aphasia (description/naming/reading) - 0(No aphasia) 10. Dysarthria (speech clarity - read or repeat words) - 0(Normal) 11. Extinction and Inattention (visual/tactile/auditory/spatial/personal) - 0(No abnormality) Initials: katy Addendum: 09/05/2019 08:35 Addendum: Culture Results: Positive urine culture. No further action required. Patient left against medical advice. Signatures: Dispatcher [employer] EDIL Dutch Pratt MD MD cha Smirch, Shelby RN PAULO Ileana Antunez RN RN lp1 Otis Mckeon ds4 Suzanne Nunez Amy RN RN Corrections: (The following items were deleted from the chart) 09/01 23:20 22:35 Missed attempt(s): 20 gauge in left antecubital area. By orthotic and prosthetic technician. lp1 ds4
--- NOTE | 2019-09-02 23:49 | EDPHYS ---
Physician Documentation [facility] Name: Ade Holcomb Age: 59 yrs Sex: Female : 1960 Arrival Date: 09/02/2019 Time: 22:28 Bed 4 Private MD: ED Physician Dutch Pratt HPI: 09/01 23:41 This 59 yrs old Female presents to ER via Wheelchair with complaints of S/S of katy Possible Stroke. 23:41 The patient's problem is reported as paresthesias, in right side of face, in left side katy of face, weakness, that is generalized. Onset: The symptoms/episode began/occurred this morning, today. Duration: The episodes are intermittent. Context: the episode(s) was witnessed, by family. The symptoms are alleviated by nothing. The symptoms are aggravated by nothing. Associated signs and symptoms: The patient has no apparent associated signs or symptoms. Severity of symptoms: At their worst the symptoms were mild in the emergency department the symptoms are unchanged. Patient's baseline: Neuro:. Historical: - Allergies: 23:03 No Known Allergies; lp1 - Home Meds: 23:03 None [Active]; lp1 - PMHx: 23:03 Arthritis; CVA; High Cholesterol; lp1 - PSHx: 23:03 None; lp1 - Immunization history:: Adult Immunizations up to date. - Social history:: Smoking status: Patient denies any tobacco usage or history of. - Family history:: not pertinent. ROS: 23:41 Constitutional: Negative for fever, chills, and weight loss, Eyes: Negative for injury, katy pain, redness, and discharge, ENT: Negative for injury, pain, and discharge, Neck: Negative for injury, pain, and swelling, Cardiovascular: Negative for chest pain, palpitations, and edema, Respiratory: Negative for shortness of breath, cough, wheezing, and pleuritic chest pain, Abdomen/GI: Negative for abdominal pain, nausea, vomiting, diarrhea, and constipation, Back: Negative for injury and pain, : Negative for injury, bleeding, discharge, and swelling, MS/Extremity: Negative for injury and deformity, Skin: Negative for injury, rash, and discoloration, Psych: Negative for depression, anxiety, suicide ideation, homicidal ideation, and hallucinations, Allergy/Immunology: Negative for hives, rash, and allergies, Endocrine: Negative for neck swelling, polydipsia, polyuria, polyphagia, and marked weight changes. 23:41 Neuro: Positive for weakness. Exam: 23:41 Radiologist reports: CK katy 23:44 Constitutional: This is a well developed, well nourished patient who is awake, alert, katy and in no acute distress. Head/Face: Normocephalic, atraumatic. Eyes: Pupils equal round and reactive to light, extra-ocular motions intact. Lids and lashes normal. Conjunctiva and sclera are non-icteric and not injected. Cornea within normal limits. Periorbital areas with no swelling, redness, or edema. ENT: Nares patent. No nasal discharge, no septal abnormalities noted. Tympanic membranes are normal and external auditory canals are clear. Oropharynx with no redness, swelling, or masses, exudates, or evidence of obstruction, uvula midline. Mucous membranes moist. Neck: Trachea midline, no thyromegaly or masses palpated, and no cervical lymphadenopathy. Supple, full range of motion without nuchal rigidity, or vertebral point tenderness. No Meningismus. Chest/axilla: Normal chest wall appearance and motion. Nontender with no deformity. No lesions are appreciated. Cardiovascular: Regular rate and rhythm with a normal S1 and S2. No gallops, murmurs, or rubs. Normal PMI, no JVD. No pulse deficits. Respiratory: Lungs have equal breath sounds bilaterally, clear to auscultation and percussion. No rales, rhonchi or wheezes noted. No increased work of breathing, no retractions or nasal flaring. Abdomen/GI: Soft, non-tender, with normal bowel sounds. No distension or tympany. No guarding or rebound. No evidence of tenderness throughout. Back: No spinal tenderness. No costovertebral tenderness. Full range of motion. Female : Normal external genitalia. Skin: Warm, dry with normal turgor. Normal color with no rashes, no lesions, and no evidence of cellulitis. MS/ Extremity: Pulses equal, no cyanosis. Neurovascular intact. Full, normal range of motion. Neuro: Awake and alert, GCS 15, oriented to person, place, time, and situation. Cranial nerves II-XII grossly intact. Motor strength 5/5 in all extremities. Sensory grossly intact. Cerebellar exam normal. Normal gait. Psych: Awake, alert, with orientation to person, place and time. Behavior, mood, and affect are within normal limits. Vital Signs: 22:30 BP 156 / 82; Pulse 85; Resp 20; Temp 98.3(O); Pulse Ox 100% on R/A; Weight 81.65 kg lp1 (R); Height 5 ft. 7 in. (170.18 cm); Pain 0/10; 23:30 BP 145 / 71; Pulse 80; Resp 15; Pulse Ox 100% on R/A; lp1 09/02 00:00 BP 158 / 81; Pulse 83; Resp 19; Pulse Ox 100% on R/A; lp1 01:00 BP 142 / 68; Pulse 81; Resp 20; Pulse Ox 98% on R/A; 1 09/01 22:30 Body Mass Index 28.19 (81.65 kg, 170.18 cm) lp1 NIH Stroke Scale Scores: 09/01 22:45 NIHSS Score: 1 lp1 22:45 NIHSS Score: 1 lp1 23:44 NIHSS Score: 0 [facility] MDM: 22:33 Patient medically screened. [facility] 23:43 Data reviewed: vital signs, nurses notes, lab test result(s), EKG, radiologic studies, [facility] CT scan, plain films. 23:52 ED course: NIH 0, NOT A TPA CANDIDATE. [facility] 09/01 22:37 Order name: Basic Metabolic Panel; Complete Time: 23:50 [facility] 09/01 22:37 Order name: CBC with Diff; Complete Time: 23:41 [facility] 09/01 22:37 Order name: Protime (+inr); Complete Time: 23:41 [facility] 09/01 22:37 Order name: Ptt, Activated; Complete Time: 23:41 [facility] 09/01 22:40 Order name: Urine Culture [facility] 09/01 22:37 Order name: CT Stroke Brain w/o Contrast [facility] 09/01 22:37 Order name: Stroke CXR 1 View [facility] 09/01 23:05 Order name: Glucose, Ancillary Testing; Complete Time: 23:41 EDMS 09/01 23:21 Order name: Urine Dipstick--Ancillary (enter results); Complete Time: 23:41 ds4 09/01 23:30 Order name: NT PRO-BNP; Complete Time: 23:50 EDMS 09/02 00:34 Order name: Lipid Profile [facility] 09/01 22:37 Order name: EKG; Complete Time: 22:38 [facility] 09/01 22:37 Order name: Accucheck; Complete Time: 22:42 [facility] 09/01 22:37 Order name: Cardiac monitoring; Complete Time: 22:42 [facility] 09/01 22:37 Order name: EKG - Nurse/Tech; Complete Time: 22:42 [facility] 09/02 00:33 Order name: Physical Therapy Consult [facility] 09/02 00:33 Order name: Speech Therapy Consult [facility] 09/02 00:36 Order name: Chest Pa And Lat (2 Views) [facility] 09/01 22:37 Order name: IV Saline Lock; Complete Time: 23:06 [facility] 09/01 22:37 Order name: Labs collected and sent; Complete Time: 23:06 [facility] 09/01 22:37 Order name: NPO; Complete Time: 23:06 [facility] 09/01 22:37 Order name: O2 Per Protocol; Complete Time: 23:06 [facility] 09/01 22:37 Order name: O2 Sat Monitoring; Complete Time: 23:07 [facility] 09/01 22:37 Order name: Stroke Swallow Screen; Complete Time: 23:14 [facility] 09/01 22:40 Order name: Urine Dipstick-Ancillary (obtain specimen); Complete Time: 23:19 katy Administered Medications: 23:10 Drug: NS 0.9% 1000 ml Route: IV; Rate: 1 bolus; Site: left forearm; lp1 23:10 Drug: foLIC Acid 1 mg Route: IVPB; Site: left forearm; lp1 23:10 Drug: Aspirin Chewable Tablet 324 mg Route: PO; lp1 09/02 00:00 Follow up: Response: No adverse reaction lp1 00:10 Drug: Potassium Effervescent Tablet 25 mEq Route: PO; 01:00 Follow up: Response: No adverse reaction lp1 Point of Care Testing: Blood Glucose: 09/01 22:32 Blood Glucose: 113 mg/dL; lp1 Ranges: Critical Glucose Levels:Adult <50 mg/dl or >400 mg/dl <40 mg/dl or >180 mg/dl Disposition: 09/03/19 01:14 Patient has left against medical advice. Impression: Weakness, Transient cerebral ischemic attack, unspecified. - Patients states they are going to Home. - Condition is Fair. - Discharge Instructions: Transient Ischemic Attack, Weakness, Weakness, Pdwn-do-Hieu, Aspirin and Your Heart. - Prescriptions for Folic Acid 1 mg Oral Tablet - take 1 tablet by ORAL route once daily; 30 tablet. Follow up: Private Physician; When: Upon discharge from the Emergency Department; Reason: Recheck today's complaints, Continuance of care, Re-evaluation by your physician. Follow up: Edi Garcia MD; When: 2 - 3 days; Reason: Recheck today's complaints, Continuance of care, Re-evaluation by your physician. - Problem is new. - Symptoms have improved. NIH Stroke Scale - NIH Stroke Score Date: 09/02/2019 Time: 22:45 Total Score = 1 1a. Level of Consciousness (LOC) - 0(Alert) 1b. Level of Consciousness (LOC) (Year \T\ Age) - 0(Both) 1c. LOC Commands (Open \T\ Closes Eyes/Tso) - 0(Both) 2. Best Gaze (Lateral Gaze Paresis) - 0(Normal) 3. Visual Field Loss - 0(No visual loss) 4. Facial Palsy - 1(Minor Paralysis) 5a. Left Arm: Motor (10-second hold) - 0(No drift) 5b. Right Arm: Motor (10-second hold) - 0(No drift) 6a. Left Leg: Motor (5-second hold - always test supine) - 0(No drift) 6b. Right Leg: Motor (5-second hold - always test supine) - 0(No drift) 7. Limb Ataxia (finger/nose \T\ heel/rodriguez - test with eyes open) - 0(Absent) 8. Sensory Loss (pinprick arms/legs/face) - 0(Normal) 9. Best Language: Aphasia (description/naming/reading) - 0(No aphasia) 10. Dysarthria (speech clarity - read or repeat words) - 0(Normal) 11. Extinction and Inattention (visual/tactile/auditory/spatial/personal) - 0(No abnormality) Initials: lp1 NIH Stroke Scale - NIH Stroke Score Date: 09/02/2019 Time: 22:45 Total Score = 1 1a. Level of Consciousness (LOC) - 0(Alert) 1b. Level of Consciousness (LOC) (Year \T\ Age) - 0(Both) 1c. LOC Commands (Open \T\ Closes Eyes/Tso) - 0(Both) 2. Best Gaze (Lateral Gaze Paresis) - 0(Normal) 3. Visual Field Loss - 0(No visual loss) 4. Facial Palsy - 1(Minor Paralysis) 5a. Left Arm: Motor (10-second hold) - 0(No drift) 5b. Right Arm: Motor (10-second hold) - 0(No drift) 6a. Left Leg: Motor (5-second hold - always test supine) - 0(No drift) 6b. Right Leg: Motor (5-second hold - always test supine) - 0(No drift) 7. Limb Ataxia (finger/nose \T\ heel/rodriguez - test with eyes open) - 0(Absent) 8. Sensory Loss (pinprick arms/legs/face) - 0(Normal) 9. Best Language: Aphasia (description/naming/reading) - 0(No aphasia) 10. Dysarthria (speech clarity - read or repeat words) - 0(Normal) 11. Extinction and Inattention (visual/tactile/auditory/spatial/personal) - 0(No abnormality) Initials: lp1 NIH Stroke Scale - NIH Stroke Score Date: 09/02/2019 Time: 23:44 Total Score = 0 1a. Level of Consciousness (LOC) - 0(Alert) 1b. Level of Consciousness (LOC) (Year \T\ Age) - 0(Both) 1c. LOC Commands (Open \T\ Closes Eyes/Tso) - 0(Both) 2. Best Gaze (Lateral Gaze Paresis) - 0(Normal) 3. Visual Field Loss - 0(No visual loss) 4. Facial Palsy - 0(Normal) 5a. Left Arm: Motor (10-second hold) - 0(No drift) 5b. Right Arm: Motor (10-second hold) - 0(No drift) 6a. Left Leg: Motor (5-second hold - always test supine) - 0(No drift) 6b. Right Leg: Motor (5-second hold - always test supine) - 0(No drift) 7. Limb Ataxia (finger/nose \T\ heel/rodriguez - test with eyes open) - 0(Absent) 8. Sensory Loss (pinprick arms/legs/face) - 0(Normal) 9. Best Language: Aphasia (description/naming/reading) - 0(No aphasia) 10. Dysarthria (speech clarity - read or repeat words) - 0(Normal) 11. Extinction and Inattention (visual/tactile/auditory/spatial/personal) - 0(No abnormality) Initials: katy Signatures: Dispatcher [employer] [facility] Dutch Pratt MD MD cha Pena, Laura, RN RN lp1 Erwin Aquino RN RN [id number] Uma Corley RN RN Corrections: (The following items were deleted from the chart) 23:30 22:40 PROBNP+C.LAB.BRZ ordered. [facility] 23:52 23:47 Hospitalization Ordered by John Levine MD for Observation. Preliminary katy diagnosis is Weakness; Transient cerebral ischemic attack, unspecified. Bed requested for Telemetry/MedSurg (observation). Status is Observation. Condition is Stable. Problem is new. Symptoms have improved. [facility] 09/02 01:13 0312 23:52 09/02/2019 23:47 Hospitalization Ordered by John Levine MD for katy Observation. Preliminary diagnosis is Weakness; Transient cerebral ischemic attack, unspecified; Hypokalemia. Bed requested for Telemetry/MedSurg (observation). Status is Observation. Condition is Stable. Problem is new. Symptoms have improved. katy 09/02 01:15 01:14 09/03/2019 01:14 Patients has left against medical advice. Impression: katy Weakness; Transient cerebral ischemic attack, unspecified. Patient states they are going to Home. Condition is Fair. Follow up: Private Physician; When: Upon discharge from the Emergency Department; Reason: Recheck today's complaints, Continuance of care, Re-evaluation by your physician. Problem is new. Symptoms have improved. katy :25 01:15 09/03/2019 01:14 Patients has left against medical advice. Impression: lp1 Weakness; Transient cerebral ischemic attack, unspecified. Patient states they are going to Home. Condition is Fair. Discharge Instructions: Transient Ischemic Attack, Weakness, Weakness, [id number], Aspirin and Your Heart. Prescriptions for Folic Acid 1 mg Oral Tablet - take 1 tablet by ORAL route once daily; 30 tabletFollow up: Private Physician; When: Upon discharge from the Emergency Department; Reason: Recheck today's complaints, Continuance of care, Re-evaluation by your physician. Follow up: Edi Garcia; When: 2 - 3 days; Reason: Recheck today's complaints, Continuance of care, Re-evaluation by your physician. Problem is new. Symptoms have improved. katy
[2019-09-03] MEDS ORDERED: POTASSIUM 25 MEQ EFFERV TAB ONE (00:05)
[2019-09-03] MEDS ORDERED: ACETAMINOPHEN 500 MG TAB PO PRN (00:15)
[2019-09-03] MEDS ORDERED: ONDANSETRON 4 MG/2 ML VIAL IV PRN (00:15)
[2019-09-03] MEDS ORDERED: NA CHLORIDE 0.9% 1,000 ML IV SCH (01:00)
[2019-09-03 01:31] VITALS: TEMP 98.3
[2019-09-03 01:35] VITALS: BP 142/68; O2SAT 98
--- NOTE | 2019-09-03 07:29 | EKG ---
Test Date: 2019-09-02 Test Time: 22:35:12 Charging Operator: PRIETO MEASUREMENT RESULTS: Intervals: Rate: 86 NC: 144 QRSD: 92 QT: 378 QTc: 452 [place]: P: 51 NC: 144 QRS: -48 T: 50 INTERPRETIVE STATEMENTS: Normal sinus rhythm Left anterior fascicular block Abnormal ECG Compared to ECG 07/30/2018 21:13:44 No significant changes Electronically Signed On 09-03-19 07:27:42 CDT by Ismael Mccoy
--- NOTE | 2019-09-03 08:21 | RAD REPORT ---
EXAM DESCRIPTION: RAD - Chest Pa And Lat (2 Views) - 09/03/2019 12:41 am CLINICAL HISTORY: Stroke COMPARISON: Portable chest September 01, two view chest August 10 TECHNIQUE: Frontal and lateral views of the chest were obtained. FINDINGS: The lungs are better aerated than the portable study. There remains asymmetric stranding i n the left base suspicious for early pneumonia. No failure or volume overload. Heart size is normal and central vasculature is within normal limits. No pleural effusion or pneu mothorax seen. No acute bony finding noted. No aortic abnormality. IMPRESSION: Interstitial stranding in the left lung base remains and is more prominent than July 31 imaging. Early or mild left lung base pneumonia remains the primary consideration.
--- NOTE | 2019-09-03 08:22 | RAD REPORT ---
EXAM DESCRIPTION: RAD - Chest Single View - 09/02/2019 10:52 pm CLINICAL HISTORY: code stroke per protocol, shortness of breath COMPARISON: Two view chest July 31, 2018 TECHNIQUE: AP portable chest image was obtained 09/02/2019 10:52 pm . FINDINGS: Lung volumes are low. Patchy left base interstitial and alveolar opacities are present. No peripheral mass or consolidation. No failure or volume overload. Heart and vasculature are normal. No measurable pleural effusion and no pneumothorax. No acute bony abnormality seen. No acute aortic findings suspected. IMPRESSION: Suspected early left lung base pneumonia.
[2019-09-03] MEDS ORDERED: ENOXAPARIN 40 MG/0.4 ML SQ SCH (09:00)
[2019-09-03] MEDS ORDERED: CLOPIDOGREL 75 MG TABLET PO SCH (09:00)
[2019-09-03] MEDS ORDERED: ASPIRIN EC 81 MG TAB PO SCH (09:00)
--- NOTE | 2019-09-03 10:39 | RAD REPORT ---
EXAM DESCRIPTION: CT - Ct Stroke Brain Wo Cont - 09/03/2019 6:03 am CLINICAL HISTORY: The patient is 59 years old and is Female; numbness around the mouth, weakness TECHNIQUE: Axial computed tomography images of the head/brain without intravenous contrast. Sagitt al and coronal reformatted images were created and reviewed. This CT exam was performed using one o r more of the following dose reduction techniques: automated exposure control, adjustment of the mA and/or kV according to patient size, and/or use of iterative reconstruction technique. COMPARISON: No relevant prior studies available. FINDINGS: BRAIN: The alejandra-white differentiation is maintained. There is no intracranial hemorrhage , mass effect, or midline shift. There are no extra-axial fluid collection. Bifrontal atrophy is note d. There is patchy hypoattenuation of the deep white matter which is non-specific, but most likely ow ing to chronic small vessel ischemic change in a patient of this age group. VENTRICLES: Unremarkable. No ventriculomegaly. BONES/JOINTS: No acute fracture. SOFT TISSUES: Unremarkable. SINUSES: Unremarkable as visualized. No acute sinusitis. MASTOID AIR CELLS: Unremarkable as visualized. No mastoid effusion. ORBITS: Unremarkable as visualized. IMPRESSION: No acute cardiopulmonary process. THIS REPORT CONTAINS FINDINGS THAT MAY BE CRITICAL TO PATIENT CARE: The findings were verbally discussed via telephone conference with Dr. Dutch Pratt by Dr. Jason English on 11:01 PM CDT .The results were acknowledged and understood. Electronically signed by: Yuly English MD 09/02/2019 11:01 PM CDT Due to temporary technical issues with the PACS/Fluency reporting system, reports are being signed by the in house radiologist as a courtesy to ensure prompt reporting. The interpreting radiologist is f ully responsible for the content of the report.
[2019-09-03] MEDS ORDERED: ATORVASTATIN 20 MG TAB PO SCH (21:00)
== END 2019-09-03 01:25 | disposition left against medical advice (07) ==
LOC: ER 22:27 → ERHOLD 09-03 01:58 → UNDOADMOB 09-03 01:58
DX: G45.9 Transient cerebral ischemic attack, unspecified (principal); R29.701 NIHSS score 1; Z86.73 Personal history of transient ischemic attack (TIA), and cerebral infarction without residual deficits
CPT/HCPCS: 36415; 70450; 71045; 71046; 80048; 81003; 82947; 83880; 85025; 85610; 85730; 87077; 87086; 87088; 87186; 93005; 96374; 99285; J7030

== ENCOUNTER 2019-09-04 10:47 | Emergency (ER) | payer SELFPAY ==
[2019-09-04] MEDS ORDERED: DIPHENHYDRAMINE 25 MG TAB/CAP ONE (12:57)
[2019-09-04] MEDS ORDERED: dexAMETHasone 10 MG/ML VIAL ONE (12:57)
[2019-09-04] MEDS ORDERED: FAMOTIDINE 20 MG TAB ONE (12:57)
--- NOTE | 2019-09-04 13:46 | ER ---
Nurse's Notes [facility] Name: Ade Grady Age: 59 yrs Sex: Female : 1960 Arrival Date: 09/04/2019 Time: 10:50 Bed 16 Private MD: Diagnosis: Urticaria, unspecified;Rash and other nonspecific skin eruption Presentation: 09/03 11:14 Chief complaint: Patient states: rash has been coming and going for 4 months but worse dm5 for this week. was seen recently and was told she needed to stay overnight but didn't want to stay. Coronavirus screen: The patient has NOT traveled to a country currently being monitored by the [facility] within the last 14 days. Proceed with normal triage procedures. The patient has NOT had contact with any known and/or suspected case of coronavirus. Proceed with normal triage procedures. Ebola Screen: Patient negative for fever greater than or equal to 101.5 degrees Fahrenheit, and additional compatible Ebola Virus Disease symptoms Patient denies exposure to infectious person. Patient denies travel to an Ebola-affected area in the 21 days before illness onset. No symptoms or risks identified at this time. Initial Sepsis Screen: Does the patient meet any 2 criteria? No. Patient's initial sepsis screen is negative. Does the patient have a suspected source of infection? No. Patient's initial sepsis screen is negative. Risk Assessment: Do you want to hurt yourself or someone else? Patient reports no desire to harm self or others. Note pt also reports headache. 11:14 Method Of Arrival: Ambulatory dm5 11:14 Acuity: MERLY 3 dm5 13:13 Onset of symptoms is unknown. vc Triage Assessment: 13:12 General: Appears in no apparent distress. comfortable, Behavior is cooperative, vc anxious. Pain: Denies pain. Historical: - Allergies: 11:17 No Known Allergies; dm5 - Immunization history:: Adult Immunizations up to date. - Social history:: Smoking status: Patient denies any tobacco usage or history of. Screenin:00 Abuse screen: Denies threats or abuse. Nutritional screening: No deficits noted. vc Tuberculosis screening: No symptoms or risk factors identified. Fall Risk None identified. Assessment: 13:00 General: Appears in no apparent distress. comfortable, Behavior is cooperative, vc appropriate for age, anxious. Pain: Denies pain. Neuro: Level of Consciousness is awake, alert, obeys commands, Oriented to person, place, time, situation. Cardiovascular: Patient's skin is warm and dry. Respiratory: Airway is patent Respiratory effort is even, unlabored, Respiratory pattern is regular, symmetrical. GI: No deficits noted. : No signs and/or symptoms were reported regarding the genitourinary system. EENT: No signs and/or symptoms were reported regarding the EENT system. Derm: Rash noted that is itchy, red, on forehead. Musculoskeletal: Circulation, motion, and sensation intact. Range of motion: intact in all extremities. 13:53 Reassessment: Patient and/or family updated on plan of care and expected duration. Pain vc level reassessed. Patient is alert, oriented x 3, equal unlabored respirations, skin warm/dry/pink. Patient denies pain at this time. Patient states feeling better. Patient states symptoms have improved. Vital Signs: 11:14 BP 135 / 64; Pulse 84; Resp 18; Temp 98.3; Pulse Ox 97% on R/A; Weight 81.65 kg; Height dm5 5 ft. 4 in. (162.56 cm); Pain 5/10; 13:00 BP 142 / 55; Pulse 73; Resp 18; Pulse Ox 96% on R/A; vc 11:14 Body Mass Index 30.90 (81.65 kg, 162.56 cm) dm5 ED Course: 10:50 Patient arrived in ED. am2 11:17 Triage completed. dm5 11:42 Stewart Sharpe NP is PHCP. pm1 11:42 Dutch Pratt MD is Attending Physician. pm1 12:49 Shahida Cleaning RN is Primary Nurse. vc 13:00 Arm band placed on. vc 13:13 Patient has correct armband on for positive identification. Bed in low position. Pulse vc ox on. NIBP on. 13:53 No provider procedures requiring assistance completed. Patient did not have IV access vc during this emergency room visit. Administered Medications: 12:59 Drug: Benadryl 25 mg Route: PO; vc 13:54 Follow up: Response: No adverse reaction; Marked relief of symptoms vc 13:00 Drug: Decadron 10 mg Route: IM; Site: left deltoid; vc 13:55 Follow up: Response: No adverse reaction; Marked relief of symptoms vc 13:00 Drug: Pepcid 20 mg Route: PO; vc 13:54 Follow up: Response: No adverse reaction; Marked relief of symptoms vc Outcome: 13:45 Discharge ordered by . pm1 13:53 Discharged to home vc 13:53 Condition: good 13:53 Discharge instructions given to patient, family, Instructed on discharge instructions, follow up and referral plans. medication usage, Demonstrated understanding of instructions, follow-up care, medications, Prescriptions given X 3. 13:55 Patient left the ED. vc Signatures: Miriam Laboy, RN RN dm5 Stewart Sharpe NP [employer] pm1 Merry Rivera am2 Shahida Cleaning RN RN vc
--- NOTE | 2019-09-04 13:46 | EDPHYS ---
Physician Documentation [facility] Name: Ade Grady Age: 59 yrs Sex: Female : 1960 Arrival Date: 09/04/2019 Time: 10:50 Bed 16 Private MD: ED Physician Dutch Pratt HPI: 09/03 12:00 This 59 yrs old Female presents to ER via Ambulatory with complaints of Rash, pm1 redness on forehead. 12:00 The patient's rash thought to be caused by an unknown cause. The rash is located on the pm1 forehead and left ear. The rash can be described as urticarial. Onset: The symptoms/episode began/occurred on and off for the past 4 months. Associated signs and symptoms: Pertinent positives: itching, sore throat, Pertinent negatives: difficulty breathing, swelling of lips, swelling of throat, swelling of tongue, wheezing. Severity of symptoms: in the emergency department the symptoms are worse. Treatment given at home: None. The patient has been recently seen at the [facility] Emergency Department, 2 days ago for generalized weakness and numbness to right side of lower face. Patient refused admission at that time. Patient is not having any weakness or numbness. Historical: - Allergies: 11:17 No Known Allergies; dm5 - Immunization history:: Adult Immunizations up to date. - Social history:: Smoking status: Patient denies any tobacco usage or history of. ROS: 13:15 Constitutional: Negative for fever, chills, and weight loss, Neck: Negative for injury, pm1 pain, and swelling, Cardiovascular: Negative for chest pain, palpitations, and edema, Respiratory: Negative for shortness of breath, cough, wheezing, and pleuritic chest pain, Abdomen/GI: Negative for abdominal pain, nausea, vomiting, diarrhea, and constipation, Back: Negative for injury and pain, MS/Extremity: Negative for injury and deformity. 13:15 Neuro: Negative for headache, weakness, numbness, tingling, and seizure. 13:15 Skin: Positive for rash, of the left ear and forehead. Exam: 13:15 Constitutional: This is a well developed, well nourished patient who is awake, alert, pm1 and in no acute distress. Head/Face: Normocephalic, atraumatic. Chest/axilla: Normal chest wall appearance and motion. Nontender with no deformity. No lesions are appreciated. Cardiovascular: Regular rate and rhythm with a normal S1 and S2. No gallops, murmurs, or rubs. Normal PMI, no JVD. No pulse deficits. Respiratory: Lungs have equal breath sounds bilaterally, clear to auscultation and percussion. No rales, rhonchi or wheezes noted. No increased work of breathing, no retractions or nasal flaring. Abdomen/GI: Soft, non-tender, with normal bowel sounds. No distension or tympany. No guarding or rebound. No evidence of tenderness throughout. Back: No spinal tenderness. No costovertebral tenderness. Full range of motion. 13:15 MS/ Extremity: Pulses equal, no cyanosis. Neurovascular intact. Full, normal range of motion. 13:15 Skin: Appearance: normal except for affected area, consistent with urticaria, on the forehead and left ear. 13:15 Neuro: Orientation: is normal, Mentation: is normal, Motor: is normal, moves all fours. Vital Signs: 11:14 BP 135 / 64; Pulse 84; Resp 18; Temp 98.3; Pulse Ox 97% on R/A; Weight 81.65 kg; Height dm5 5 ft. 4 in. (162.56 cm); Pain 5/10; 13:00 BP 142 / 55; Pulse 73; Resp 18; Pulse Ox 96% on R/A; vc 11:14 Body Mass Index 30.90 (81.65 kg, 162.56 cm) dm5 MDM: 11:42 Patient medically screened. [facility] 13:41 Data reviewed: vital signs. Data interpreted: Pulse oximetry: on room air is 97 %. pm1 Interpretation: normal. Counseling: I had a detailed discussion with the patient and/or guardian regarding: the historical points, exam findings, and any diagnostic results supporting the discharge/admit diagnosis, the need for outpatient follow up, to return to the emergency department if symptoms worsen or persist or if there are any questions or concerns that arise at home. Administered Medications: 12:59 Drug: Benadryl 25 mg Route: PO; vc 13:54 Follow up: Response: No adverse reaction; Marked relief of symptoms vc 13:00 Drug: Decadron 10 mg Route: IM; Site: left deltoid; vc 13:55 Follow up: Response: No adverse reaction; Marked relief of symptoms vc 13:00 Drug: Pepcid 20 mg Route: PO; vc 13:54 Follow up: Response: No adverse reaction; Marked relief of symptoms vc Disposition: 09/04/19 13:45 Discharged to Home. Impression: Rash and other nonspecific skin eruption, Urticaria, unspecified. - Condition is Stable. - Discharge Instructions: Hives, Rash. - Prescriptions for Benadryl 25 mg Oral Capsule - take 1 capsule by ORAL route every 6 hours As needed; 30 tablet. Pepcid 20 mg Oral Tablet - take 1 tablet by ORAL route every 12 hours for 10 days; 20 tablet. Medrol (Ravi) 4 mg Oral Tablets, Dose Pack - take 1 tablet by ORAL route as directed - follow package instructions; 1 packet. - Medication Reconciliation Form, Thank You Letter, Antibiotic Education, Prescription Opioid Use form. - Follow up: Emergency Department; When: As needed; Reason: Worsening of condition. Follow up: Private Physician; When: 2 - 3 days; Reason: Recheck today's complaints, Continuance of care, Re-evaluation by your physician. - Problem is new. - Symptoms have improved. Addendum: 09/06/2019 09:06 Co-signature as Attending Physician, Dutch Pratt MD I agree with the assessment and c harrell plan of care. Signatures: Miriam Laboy, RN RN dm5 Dutch Pratt MD MD cha Marinas, Patrick, DATA INTEGRITY ANALYST DATA INTEGRITY ANALYST pm1 Shahida Cleaning RN RN vc Corrections: (The following items were deleted from the chart) 09/03 13:46 13:45 09/04/2019 13:45 Discharged to Home. Impression: Urticaria, unspecified. pm1 Condition is Stable. Forms are Medication Reconciliation Form, Thank You Letter, Antibiotic Education, Prescription Opioid Use. Follow up: Emergency Department; When: As needed; Reason: Worsening of condition. Follow up: Private Physician; When: 2 - 3 days; Reason: Recheck today's complaints, Continuance of care, Re-evaluation by your physician. Problem is new. Symptoms have improved. pm1 13:55 13:46 09/04/2019 13:45 Discharged to Home. Impression: Rash and other nonspecific skin vc eruptionUrticaria, unspecified. Condition is Stable. Forms are Medication Reconciliation Form, Thank You Letter, Antibiotic Education, Prescription Opioid Use. Follow up: Emergency Department; When: As needed; Reason: Worsening of condition. Follow up: Private Physician; When: 2 - 3 days; Reason: Recheck today's complaints, Continuance of care, Re-evaluation by your physician. Problem is new. Symptoms have improved. pm1
[2019-09-04 14:01] VITALS: TEMP 98.3
[2019-09-04 14:03] VITALS: BP 142/55; O2SAT 96
== END 2019-09-04 13:55 | disposition home or self-care (01) ==
LOC: ER 10:47
DX: L50.9 Urticaria, unspecified (principal)
CPT/HCPCS: 96372; 99283; J1100

== ENCOUNTER 2020-08-13 10:44 | Emergency (ER) | payer SELFPAY ==
[2020-08-13 12:49] LABS: SARS-COV-2 RT PCR POSITIVE (NEGATIVE)
--- NOTE | 2020-08-13 13:09 | ER ---
Nurse's Notes [facility] Name: Ade Grady Age: 60 yrs Sex: Female : 1960 Arrival Date: 08/13/2020 Time: 10:48 Bed 12 Private MD: Diagnosis: Coronavirus infection, unspecified Presentation: 08/13 11:16 Chief complaint: Patient states: S/S 08/12/2020, headache, cold, cough. sore throat. ca1 Coronavirus screen: Client denies travel out of the [place] in the last 14 days. congestion, cough unrelated to allergies, headache, runny nose, sore throat, Client presents with at least one sign or symptom that may indicate coronavirus-19. Standard/surgical mask placed on the client. Provider contacted for isolation considerations. Ebola Screen: Patient negative for fever greater than or equal to 101.5 degrees Fahrenheit, and additional compatible Ebola Virus Disease symptoms Patient denies exposure to infectious person. Patient denies travel to an Ebola-affected area in the 21 days before illness onset. No symptoms or risks identified at this time. Initial Sepsis Screen: Does the patient meet any 2 criteria? No. Patient's initial sepsis screen is negative. Does the patient have a suspected source of infection? No. Patient's initial sepsis screen is negative. Risk Assessment: Do you want to hurt yourself or someone else? Patient reports no desire to harm self or others. Onset of symptoms was August 13, 2020. 11:16 Method Of Arrival: Ambulatory ca1 11:16 Acuity: MERLY 4 ca1 Historical: - Allergies: 11:19 No Known Allergies; ca1 - Home Meds: 11:19 None [Active]; ca1 - PMHx: 11:19 Arthritis; CVA; High Cholesterol; ca1 - PSHx: 11:19 None; ca1 - Immunization history:: Flu vaccine is up to date. - Social history:: Smoking status: Patient denies any tobacco usage or history of. Vital Signs: 11:16 BP 136 / 65; Pulse 99; Resp 18 S; Temp 98.2(TE); Pulse Ox 97% on R/A; Weight 77.11 kg ca1 (R); Height 5 ft. 2 in. (157.48 cm) (R); 11:16 Body Mass Index 31.09 (77.11 kg, 157.48 cm) ca1 ED Course: 10:48 Patient arrived in ED. as 11:18 Triage completed. ca1 11:19 Arm band placed on right wrist. ca1 12:00 Stewart Sharpe NP is PHCP. pm1 12:00 Edgar Meza MD is Attending Physician. pm1 12:14 Cherelle Valderrama, RN is Primary Nurse. iw Administered Medications: No medications were administered Outcome: 13:08 Discharge ordered by . pm1 13:18 Patient left the ED. iw Signatures: Whitney Field as Cherelle Valderrama, RN RN iw Stewart Sharpe NP WASHING MACHINE STRIPER pm1 Jasmin Higgins RN RN ca1
--- NOTE | 2020-08-13 13:09 | EDPHYS ---
Physician Documentation [facility] Name: Ade Grady Age: 60 yrs Sex: Female : 1960 Arrival Date: 08/13/2020 Time: 10:48 Bed 12 Private MD: ED Physician Edgar Meza HPI: 08/13 13:18 This 60 yrs old Female presents to ER via Ambulatory with complaints of r/o pm1 covid. 13:18 The patient or guardian reports cough, headache. Onset: The symptoms/episode pm1 began/occurred yesterday. Modifying factors: The symptoms are alleviated by nothing. the symptoms are aggravated by nothing. Associated signs and symptoms: Pertinent positives: headache, sore throat, cough, Pertinent negatives: fever. The patient has not experienced similar symptoms in the past. The patient has not recently seen a physician. Patient's daughter tested positive for covid. Historical: - Allergies: 11:19 No Known Allergies; ca1 - Home Meds: 11:19 None [Active]; ca1 - PMHx: 11:19 Arthritis; CVA; High Cholesterol; ca1 - PSHx: 11:19 None; ca1 - Immunization history:: Flu vaccine is up to date. - Social history:: Smoking status: Patient denies any tobacco usage or history of. ROS: 13:18 Constitutional: Negative for fever, chills, and weight loss. pm1 13:18 Cardiovascular: Negative for chest pain, palpitations, and edema. 13:18 Abdomen/GI: Negative for abdominal pain, nausea, vomiting, diarrhea, and constipation, Back: Negative for injury and pain, MS/Extremity: Negative for injury and deformity, Skin: Negative for injury, rash, and discoloration, Neuro: Negative for headache, weakness, numbness, tingling, and seizure. 13:18 ENT: Positive for sore throat. 13:18 Respiratory: Positive for cough, Negative for shortness of breath. Exam: 13:18 Constitutional: This is a well developed, well nourished patient who is awake, alert, pm1 and in no acute distress. Head/Face: Normocephalic, atraumatic. 13:18 Back: No spinal tenderness. No costovertebral tenderness. Full range of motion. 13:18 Skin: Warm, dry with normal turgor. Normal color with no rashes, no lesions, and no evidence of cellulitis. MS/ Extremity: Pulses equal, no cyanosis. Neurovascular intact. Full, normal range of motion. 13:18 Cardiovascular: Exam negative for acute changes, Rate: normal, Rhythm: regular, Pulses: no pulse deficits are appreciated. 13:18 Respiratory: Exam negative for acute changes, respiratory distress, shortness of breath. 13:18 Abdomen/GI: Exam negative for acute changes, Inspection: abdomen appears normal. 13:18 Neuro: Orientation: is normal, Mentation: is normal, Motor: is normal, moves all fours, Sensation: is normal, no obvious gross deficits. Vital Signs: 11:16 BP 136 / 65; Pulse 99; Resp 18 S; Temp 98.2(TE); Pulse Ox 97% on R/A; Weight 77.11 kg ca1 (R); Height 5 ft. 2 in. (157.48 cm) (R); 11:16 Body Mass Index 31.09 (77.11 kg, 157.48 cm) ca1 MDM: 12:03 Patient medically screened. pm1 13:05 Data reviewed: vital signs. Data interpreted: Pulse oximetry: on room air is 97 %. pm1 Interpretation: normal. Counseling: I had a detailed discussion with the patient and/or guardian regarding: the historical points, exam findings, and any diagnostic results supporting the discharge/admit diagnosis, lab results, the need for outpatient follow up, to return to the emergency department if symptoms worsen or persist or if there are any questions or concerns that arise at home. 08/13 11:21 Order name: Strep ca1 08/13 11:21 Order name: Flu ca1 08/13 11:21 Order name: COVID-19 : Document "Date of Symptom Onset" if Symptomatic. ca1 08/13 11:22 Order name: Group A Streptococcus Rapid Sc; Complete Time: 12:28 EDMS 08/13 12:25 Order name: Throat Culture EDSD 08/13 12:49 Order name: COVID-19/FLU A+B; Complete Time: 12:51 EDMS Administered Medications: No medications were administered Disposition: 18:27 Co-signature as Attending Physician, Edgar Meza MD. rn Disposition: 08/13/20 13:08 Discharged to Home. Impression: Coronavirus infection, unspecified. - Condition is Stable. - Discharge Instructions: COVID-19. - Medication Reconciliation Form, Thank You Letter, Antibiotic Education, Prescription Opioid Use form. - Follow up: Emergency Department; When: As needed; Reason: Worsening of condition. Follow up: Private Physician; When: 2 - 3 days; Reason: Recheck today's complaints, Continuance of care, Re-evaluation by your physician. - Problem is new. - Symptoms have improved. Signatures: Dispatcher [employer] EDSD Cherelle Valderrama RN RN iw Edgar Meza MD MD rn Marinas, Patrick, IGNITION SPECIALIST IGNITION SPECIALIST pm1 Acob, PAULO Castellanos RN ca1 Corrections: (The following items were deleted from the chart) 11:53 11:22 CORONAVIRUS ordered. [facility] 13:18 13:08 08/13/2020 13:08 Discharged to Home. Impression: Coronavirus infection, iw unspecified. Condition is Stable. Forms are Medication Reconciliation Form, Thank You Letter, Antibiotic Education, Prescription Opioid Use. Follow up: Emergency Department; When: As needed; Reason: Worsening of condition. Follow up: Private Physician; When: 2 - 3 days; Reason: Recheck today's complaints, Continuance of care, Re-evaluation by your physician. Problem is new. Symptoms have improved. pm1
[2020-08-13 13:30] VITALS: BP 136/65; TEMP 98.2; O2SAT 97
== END 2020-08-13 13:18 | disposition home or self-care (01) ==
LOC: ER 10:44
DX: U07.1 COVID-19 (principal)
CPT/HCPCS: 0240U; 87070; 87081; 99281

== ENCOUNTER 2022-05-28 17:07 | Observation (INO) | payer OTHER, SELFPAY ==
--- OUTSIDE RECORDS SUMMARY | 2022-05-28 17:12 | XMS REPORT | Continuity of Care Document ---
:1960 Author Organization [facility] t Address [address] [place] [address] Care Team Providers Name Role Phone James LAUREN, Jon Primary Care Physician Problems This patient has no known problems. Allergies, Adverse Reactions, Alerts This patient has no known allergies or adverse reactions. Medications Ordered Filled Start Stop Current Ordering Indication Dosage Frequency Signature Comments Components Source Medication Medication Date Date Medication? Clinician (SIG) Name Name Dose 2021-06 No Unknown 0-24 00:00: 00 Dose 2021-0 No Unknown 6-08 00:00: 00 Dose 2021-0 No Unknown 6-08 00:00: 00 Dose 2-0 No Unknown 6-08 00:00: 00 Dose 2-0 No Unknown 6-08 00:00: 00 Dose 2-0 No Unknown 6-08 00:00: 00 Dose 2-0 No Unknown 5-26 00:00: 00 Dose 2-0 No Unknown 5-26 00:00: 00 Dose 2-0 No Unknown 5-26 00:00: 00 Dose 2-0 No Unknown 5-26 00:00: 00 Dose 2-0 No Unknown 5-24 00:00: 00 Dose 2-0 No Unknown 3-28 00:00: 00 Dose 2022-0 No Unknown 3-28 00:00: 00 Dose 2022-0 No Unknown 3-28 00:00: 00 Dose 2022-0 No Unknown 3-28 00:00: 00 Dose 2022-0 No Unknown 3-28 00:00: 00 Dose 2022-0 No Unknown 3-28 00:00: 00 Dose 2022-0 No Unknown 3-16 00:00: 00 methotrexat 2021-0 No 6mg e sodium 1-26 2.5 mg 00:00: tablet 00 diclofenac 2020- No 1% 1 % topical 0-26 gel 00:00: 00 Dose 2020-1 No Unknown 0-26 00:00: 00 methotrexat 2020-0 No 6mg e sodium 8-23 2.5 mg 00:00: tablet 00 methotrexat 2020-0 No 6mg e sodium 6-23 2.5 mg 00:00: tablet 00 prednisone 2020-0 No mg 10 mg 6-23 tablet 00:00: 00 Vital Signs Vital Name Observation Time Observation Value Comments Source BP Systolic 2022-04-15 11:20:00 BP Diastolic 2022-04-15 11:20:00 Weight Measured 2022-04-15 11:20:00 180.60 pounds Height Measured 2022-04-15 11:20:00 61.89 inches Body Temperature 2022-04-15 11:20:00 98.40 degrees Heart Rate 2022-04-15 11:20:00 82.00 /min Respiratory Rate 2022-04-15 11:20:00 Height Measured 2021-11-28 16:46:00 61.89 inches Body Temperature 2021-11-28 16:46:00 98.50 degrees Heart Rate 2021-11-28 16:46:00 90.00 /min Respiratory Rate 2021-11-28 16:46:00 BP Systolic 2021-11-28 16:46:00 133 mm[Hg] BP Diastolic 2021-11-28 16:46:00 77 mm[Hg] Weight Measured 2021-11-28 16:46:00 175.20 pounds BP Systolic 2021-07-18 13:33:00 125 mm[Hg] BP Diastolic 2021-07-18 13:33:00 67 mm[Hg] Weight Measured 2021-07-18 13:33:00 180.60 pounds Height Measured 2021-07-18 13:33:00 61.89 inches Body Temperature 2021-07-18 13:33:00 97.40 degrees Heart Rate 2021-07-18 13:33:00 74.00 /min Respiratory Rate 2021-07-18 13:33:00 BP Systolic 2021-04-17 11:01:00 123 mm[Hg] BP Diastolic 2021-04-17 11:01:00 72 mm[Hg] Weight Measured 2021-04-17 11:01:00 185.20 pounds Height Measured 2021-04-17 11:01:00 61.89 inches Body Temperature 2021-04-17 11:01:00 97.40 degrees Heart Rate 2021-04-17 11:01:00 88.00 /min Respiratory Rate 2021-04-17 11:01:00 BP Systolic 2021-02-12 10:21:00 136 mm[Hg] BP Diastolic 2021-02-12 10:21:00 75 mm[Hg] Weight Measured 2021-02-12 10:21:00 186.00 pounds Height Measured 2021-02-12 10:21:00 61.89 inches Body Temperature 2021-02-12 10:21:00 97.30 degrees Heart Rate 2021-02-12 10:21:00 84.00 /min Respiratory Rate 2021-02-12 10:21:00 16.00 /min BP Systolic 2020-12-13 15:22:00 140 mm[Hg] BP Diastolic 2020-12-13 15:22:00 76 mm[Hg] Weight Measured 2020-12-13 15:22:00 185.40 pounds Height Measured 2020-12-13 15:22:00 61.89 inches Body Temperature 2020-12-13 15:22:00 97.40 degrees Heart Rate 2020-12-13 15:22:00 88.00 /min Respiratory Rate 2020-12-13 15:22:00 16.00 /min Procedures This patient has no known procedures. Plan of Care Planned Activity Planned Date Details Comments Source Goal Plan of Care Note [code = 22620-1] Goal Plan of Care Note [code = 64214-5] Goal Plan of Care Note [code = 07973-1] Goal Plan of Care Note [code = 94651-7] Goal Plan of Care Note [code = 98202-3] Goal Plan of Care Note [code = 70526-1] Goal Plan of Care Note [code = 65795-8] Goal Plan of Care Note [code = 57270-0] Encounters Start End Encounter Admission Attending Care Care Encounter Source Date/Time Date/Time Type Type Clinicians Facility Department ID 2022-04-15 2022-04-15 Outpatient [facility] [id number] 11:14:53 11:14:53 [id number] F Mariano 2022-04-15 2022-04-15 Outpatient [id number] af [id number] 00:00:00 00:00:00 Visit [id number] Results Test Description Test Time Test Comments Results Result Comments Source CBC W/AUTO DIFF WITH PLATELETS 2022-04-16 04:31:14 Test Item Value Reference Range Interpretation Comme nts WBC (test code = 1001) 8.2 K/UL 3.5-11.0 RBC (test code = 1002) 4.40 M/UL 3.80-5.40 HEMOGLOBIN (test code = 1003) 13.2 G/DL 11.5-15.5 HEMATOCRIT (test code = 1004) 40.6 % 34.0-45.0 MCV (test code = 1005) 92.3 fL 80.0-99.0 MCH (test code = 1006) 30.0 PG 25.0-33.0 MCHC (test code = 1007) 32.5 G/DL 31.0-36.0 RDW (test code = 1038) 11.7 % 11.5-15.0 NEUTROPHILS (test code = 57.2 % 1008) LYMPHOCYTES (test code = 27.7 % 1010) MONOCYTES (test code = 1011) 7.2 % EOSINOPHILS (test code = 6.4 % 1012) BASOPHILS (test code = 1013) 1.0 % IMMATURE GRANULOCYTES (test 0.5 % code = 1036) NUCLEATED RBCS (test code = 0.0 /100 WBC'S See_Comment [Automated message] The 1065) system which ge nerated this result transmit dionisio reference range : 0.0. The reference range was not used to interpr et this result as debi l/abnormal. PLATELET COUNT (test code = 312 K/UL [phone]) ABSOLUTE NEUTROPHILS (test 4.67 K/UL 1.50-7.50 code = 1066) ABSOLUTE LYMPHOCYTES (test 2.26 K/UL 1.00-4.00 code = 1067) ABSOLUTE MONOCYTES (test code 0.59 K/UL 0.20-1.00 = 1068) ABSOLUTE EOSINOPHILS (test 0.52 K/UL 0.00-0.50 H code = 1040) ABSOLUTE BASOPHILS (test code 0.08 K/UL 0.00-0.20 = 1069) ABS IMMATURE GRANULOCYTES 0.04 K/UL 0.00-0.10 (test code = 1020) ABS NUCLEATED RBCS (test code 0.00 K/UL 0.00-0.11 = 18757) COMPREHENSIVE METABOLIC [id number] 04:04:22 Test Item Value Reference Range Interpretation Comments GLUCOSE (test code = 115 MG/DL 70-99 H 2216) BUN (test code = 16 MG/DL 8-23 2207) CREATININE (test 0.50 MG/DL 0.60-1.30 L code = 221) eGFR (2020 CKD-EPI) 105 >60 (test code = 84721) ML/MIN/1.73 CALC BUN/CREAT (test 32 RATIO 6-28 H code = 2235) SODIUM (test code = 145 MEQ/L 556-221 2438) POTASSIUM (test code 4.3 MEQ/L 3.5-5.4 = 2227) CHLORIDE (test code 109 MEQ/L 95-107 H = 2214) CARBON DIOXIDE (test 26 MEQ/L 19-31 code = 220) CALCIUM (test code = 9.1 MG/DL 8.5-10.5 2208) PROTEIN, TOTAL (test 6.4 G/DL 6.1-8.3 code = 222) ALBUMIN (test code = 3.8 G/DL 3.5-5.2 2200) CALC GLOBULIN (test 2.6 G/DL 1.9-3.7 code = 2240) CALC A/G RATIO (test 1.5 RATIO 1.0-2.6 code = 2234) BILIRUBIN, TOTAL 0.2 MG/DL See_Comment [Automated message] (test code = 220) The syste m which generated this result transmitted ref erence range: <=1.2. T he reference range was not used to int erpret this result as normal/abnormal . ALKALINE PHOSPHATASE 96 U/L 40-140 (test code = 2204) AST (test code = 15 U/L 9-40 2217) ALT (test code = 14 U/L 5-40 UNLESS OTH ERWISE 2219) INDICATED, ALL TESTING PERFORM ED [facility], [place] [address] [place] [place] [address] [facility] DIRECTOR: Shaheen HANSENIA NUMBER [id number] CAP ACCREDITATION N O. [id number] CBC W/AUTO DIFF WITH PLATELETS [ADDED]2022-04-16 00:00:00 Test Item Value Reference Range Interpretation Comments WBC (test code = 1001) 8.2 K/UL RBC (test code = 1002) 4.40 M/UL HEMOGLOBIN (test code = 1003) 13.2 G/DL HEMATOCRIT (test code = 1004) 40.6 % MCV (test code = 1005) 92.3 fL MCH (test code = 1006) 30.0 PG MCHC (test code = 1007) 32.5 G/DL RDW (test code = 1038) 11.7 % NEUTROPHILS (test code = 1008) 57.2 % LYMPHOCYTES (test code = 1010) 27.7 % MONOCYTES (test code = 1011) 7.2 % EOSINOPHILS (test code = 1012) 6.4 % BASOPHILS (test code = 1013) 1.0 % IMMATURE GRANULOCYTES (test 0.5 % code = 1036) NUCLEATED RBCS (test code = 0.0 /100WBC'S 1065) PLATELET COUNT (test code = 312 K/UL 1015) ABSOLUTE NEUTROPHILS (test code 4.67 K/UL = 1066) ABSOLUTE LYMPHOCYTES (test code 2.26 K/UL = 1067) ABSOLUTE MONOCYTES (test code = 0.59 K/UL 1068) ABSOLUTE EOSINOPHILS (test code 0.52 K/UL = 1040) ABSOLUTE BASOPHILS (test code = 0.08 K/UL 1069) ABS IMMATURE GRANULOCYTES (test 0.04 K/UL code = 1020) ABS NUCLEATED RBCS (test code = 0.00 K/UL 49649) CBC W/AUTO DIFF WITH PLATELETS [ADDED]2022-04-16 00:00:00 Test Item Value Reference Range Interpretation Comments WBC (test code = 1001) 8.2 K/UL RBC (test code = 1002) 4.40 M/UL HEMOGLOBIN (test code = 1003) 13.2 G/DL HEMATOCRIT (test code = 1004) 40.6 % MCV (test code = 1005) 92.3 fL MCH (test code = 1006) 30.0 PG MCHC (test code = 1007) 32.5 G/DL RDW (test code = 1038) 11.7 % NEUTROPHILS (test code = 1008) 57.2 % LYMPHOCYTES (test code = 1010) 27.7 % MONOCYTES (test code = 1011) 7.2 % EOSINOPHILS (test code = 1012) 6.4 % BASOPHILS (test code = 1013) 1.0 % IMMATURE GRANULOCYTES (test 0.5 % code = 1036) NUCLEATED RBCS (test code = 0.0 /100WBC'S 1065) PLATELET COUNT (test code = 312 K/UL 1015) ABSOLUTE NEUTROPHILS (test code 4.67 K/UL = 1066) ABSOLUTE LYMPHOCYTES (test code 2.26 K/UL = 1067) ABSOLUTE MONOCYTES (test code = 0.59 K/UL 1068) ABSOLUTE EOSINOPHILS (test code 0.52 K/UL = 1040) ABSOLUTE BASOPHILS (test code = 0.08 K/UL 1069) ABS IMMATURE GRANULOCYTES (test 0.04 K/UL code = 1020) ABS NUCLEATED RBCS (test code = 0.00 K/UL 61608) CBC W/AUTO DIFF WITH PLATELETS [ADDED]2022-04-16 00:00:00 Test Item Value Reference Range Interpretation Comments WBC (test code = 1001) 8.2 K/UL RBC (test code = 1002) 4.40 M/UL HEMOGLOBIN (test code = 1003) 13.2 G/DL HEMATOCRIT (test code = 1004) 40.6 % MCV (test code = 1005) 92.3 fL MCH (test code = 1006) 30.0 PG MCHC (test code = 1007) 32.5 G/DL RDW (test code = 1038) 11.7 % NEUTROPHILS (test code = 1008) 57.2 % LYMPHOCYTES (test code = 1010) 27.7 % MONOCYTES (test code = 1011) 7.2 % EOSINOPHILS (test code = 1012) 6.4 % BASOPHILS (test code = 1013) 1.0 % IMMATURE GRANULOCYTES (test 0.5 % code = 1036) NUCLEATED RBCS (test code = 0.0 /100WBC'S 1065) PLATELET COUNT (test code = 312 K/UL 1015) ABSOLUTE NEUTROPHILS (test code 4.67 K/UL = 1066) ABSOLUTE LYMPHOCYTES (test code 2.26 K/UL = 1067) ABSOLUTE MONOCYTES (test code = 0.59 K/UL 1068) ABSOLUTE EOSINOPHILS (test code 0.52 K/UL = 1040) ABSOLUTE BASOPHILS (test code = 0.08 K/UL 1069) ABS IMMATURE GRANULOCYTES (test 0.04 K/UL code = 1020) ABS NUCLEATED RBCS (test code = 0.00 K/UL 50972) COMPREHENSIVE METABOLIC PANEL [ADDED]2022-04-16 00:00:00 Test Item Value Reference Range Interpretation Comments GLUCOSE (test code = 2217) 115 MG/DL BUN (test code = 2208) 16 MG/DL CREATININE (test code = 2214) 0.50 MG/DL eGFR (2020 CKD-EPI) (test 105 ML/MIN/1.73 code = 45529) CALC BUN/CREAT (test code = 32 RATIO 2235) SODIUM (test code = 2231) 145 MEQ/L POTASSIUM (test code = 2228) 4.3 MEQ/L CHLORIDE (test code = 2215) 109 MEQ/L CARBON DIOXIDE (test code = 26 MEQ/L 2205) CALCIUM (test code = 2209) 9.1 MG/DL PROTEIN, TOTAL (test code = 6.4 G/DL 2228) ALBUMIN (test code = 2201) 3.8 G/DL CALC GLOBULIN (test code = 2.6 G/DL 0) CALC A/G RATIO (test code = 1.5 RATIO 2234) BILIRUBIN, TOTAL (test code = 0.2 MG/DL 2206) ALKALINE PHOSPHATASE (test 96 U/L code = 2204) AST (test code = 2218) 15 U/L ALT (test code = 2219) 14 U/L COMPREHENSIVE METABOLIC PANEL [ADDED]2022-04-16 00:00:00 Test Item Value Reference Range Interpretation Comments GLUCOSE (test code = 2217) 115 MG/DL BUN (test code = 2208) 16 MG/DL CREATININE (test code = 2214) 0.50 MG/DL eGFR (2020 CKD-EPI) (test 105 ML/MIN/1.73 code = 07806) CALC BUN/CREAT (test code = 32 RATIO 2235) SODIUM (test code = 2231) 145 MEQ/L POTASSIUM (test code = 2228) 4.3 MEQ/L CHLORIDE (test code = 2215) 109 MEQ/L CARBON DIOXIDE (test code = 26 MEQ/L 2205) CALCIUM (test code = 2209) 9.1 MG/DL PROTEIN, TOTAL (test code = 6.4 G/DL 2228) ALBUMIN (test code = 2201) 3.8 G/DL CALC GLOBULIN (test code = 2.6 G/DL 2239) CALC A/G RATIO (test code = 1.5 RATIO 2233) BILIRUBIN, TOTAL (test code = 0.2 MG/DL 2206) ALKALINE PHOSPHATASE (test 96 U/L code = 2204) AST (test code = 2218) 15 U/L ALT (test code = 2219) 14 U/L CBC W/AUTO DIFF WITH [id number] 06:40:26 Test Item Value Reference Range Interpretation Comments WBC (test code = 10.7 K/UL 3.5-11.0 1001) RBC (test code = 4.21 M/UL 3.80-5.40 1002) HEMOGLOBIN (test code 13.1 G/DL 11.5-15.5 = 1003) HEMATOCRIT (test code 38.4 % 34.0-45.0 = 1004) MCV (test code = 91.2 fL 80.0-99.0 1005) MCH (test code = 31.1 PG 25.0-33.0 1006) MCHC (test code = 34.1 G/DL 31.0-36.0 1007) RDW (test code = 11.9 % 11.5-15.0 1038) NEUTROPHILS (test 62.2 % code = 1008) LYMPHOCYTES (test 26.0 % code = 1010) MONOCYTES (test code 7.0 % = 1011) EOSINOPHILS (test 3.7 % code = 1012) BASOPHILS (test code 0.8 % = 1013) IMMATURE GRANULOCYTES 0.3 % (test code = 1036) NUCLEATED RBCS (test 0.0 /100 WBC'S See_Comment [Aut omated code = 1065) message] The sy stem which generated this result transmitted reference range : 0.0. The refere nce range was not u sed to interpret th is result as normal/abnormal . PLATELET COUNT (test 312 K/UL 130-400 code = 1015) ABSOLUTE NEUTROPHILS 6.63 K/UL 1.50-7.50 (test code = 1066) ABSOLUTE LYMPHOCYTES 2.77 K/UL 1.00-4.00 (test code = 1067) ABSOLUTE MONOCYTES 0.75 K/UL 0.20-1.00 (test code = 1068) ABSOLUTE EOSINOPHILS 0.39 K/UL 0.00-0.50 (test code = 1040) ABSOLUTE BASOPHILS 0.09 K/UL 0.00-0.20 (test code = 1069) ABS IMMATURE 0.03 K/UL 0.00-0.10 GRANULOCYTES (test code = 1020) ABS NUCLEATED RBCS 0.00 K/UL 0.00-0.11 (test code = 18027) COMPREHENSIVE METABOLIC [id number] 06:23:58 Test Item Value Reference Range Interpretation Comments GLUCOSE (test code = 113 MG/DL 70-99 H 2216) BUN (test code = 17 MG/DL 8-23 2207) CREATININE (test 0.56 MG/DL 0.60-1.30 L code = 2214) eGFR (2020 CKD-EPI) 102 >60 (test code = 15504) ML/MIN/1.73 CALC BUN/CREAT (test 30 RATIO 6-28 H code = 2235) SODIUM (test code = 143 MEQ/L 871-482 0221) POTASSIUM (test code 3.9 MEQ/L 3.5-5.4 = 2227) CHLORIDE (test code 106 MEQ/L 95-107 = 2215) CARBON DIOXIDE (test 24 MEQ/L 19-31 code = 2206) CALCIUM (test code = 9.3 MG/DL 8.5-10.5 2208) PROTEIN, TOTAL (test 6.9 G/DL 6.1-8.3 code = 2229) ALBUMIN (test code = 4.1 G/DL 3.5-5.2 2200) CALC GLOBULIN (test 2.8 G/DL 1.9-3.7 code = 2240) CALC A/G RATIO (test 1.5 RATIO 1.0-2.6 code = 2234) BILIRUBIN, TOTAL 0.2 MG/DL See_Comment [Automated message] (test code = 2207) The syste m which generated this result transmitted ref erence range: <=1.2. T he reference range was not used to int erpret this result as normal/abnormal . ALKALINE PHOSPHATASE 85 U/L 40-140 (test code = 2204) AST (test code = 13 U/L 9-40 2218) ALT (test code = 12 U/L 5-40 UNLESS OTH ERWISE 2219) INDICATED, ALL TESTING PERFORM ED AT[facility], [facility]. [address] [place] [address] [facility] DIRECTOR: GONZALEZ SMITH M.D. [place] NUMBER [id number] CAP ACCREDITATION N O. [id number] CBC W/AUTO [id number] 00:00:00 Test Item Value Reference Range Interpretation Comments WBC (test code = 1001) 10.7 K/UL RBC (test code = 1002) 4.21 M/UL HEMOGLOBIN (test code = 1003) 13.1 G/DL HEMATOCRIT (test code = 1004) 38.4 % MCV (test code = 1005) 91.2 fL MCH (test code = 1006) 31.1 PG MCHC (test code = 1007) 34.1 G/DL RDW (test code = 1038) 11.9 % NEUTROPHILS (test code = 1008) 62.2 % LYMPHOCYTES (test code = 1010) 26.0 % MONOCYTES (test code = 1011) 7.0 % EOSINOPHILS (test code = 1012) 3.7 % BASOPHILS (test code = 1013) 0.8 % IMMATURE GRANULOCYTES (test 0.3 % code = 1036) NUCLEATED RBCS (test code = 0.0 /100WBC'S 1065) PLATELET COUNT (test code = 312 K/UL 1015) ABSOLUTE NEUTROPHILS (test code 6.63 K/UL = 1066) ABSOLUTE LYMPHOCYTES (test code 2.77 K/UL = 1067) ABSOLUTE MONOCYTES (test code = 0.75 K/UL 1068) ABSOLUTE EOSINOPHILS (test code 0.39 K/UL = 1040) ABSOLUTE BASOPHILS (test code = 0.09 K/UL 1069) ABS IMMATURE GRANULOCYTES (test 0.03 K/UL code = 1020) ABS NUCLEATED RBCS (test code = 0.00 K/UL 67985) CBC W/AUTO [id number] 00:00:00 Test Item Value Reference Range Interpretation Comments WBC (test code = 1001) 10.7 K/UL RBC (test code = 1002) 4.21 M/UL HEMOGLOBIN (test code = 1003) 13.1 G/DL HEMATOCRIT (test code = 1004) 38.4 % MCV (test code = 1005) 91.2 fL MCH (test code = 1006) 31.1 PG MCHC (test code = 1007) 34.1 G/DL RDW (test code = 1038) 11.9 % NEUTROPHILS (test code = 1008) 62.2 % LYMPHOCYTES (test code = 1010) 26.0 % MONOCYTES (test code = 1011) 7.0 % EOSINOPHILS (test code = 1012) 3.7 % BASOPHILS (test code = 1013) 0.8 % IMMATURE GRANULOCYTES (test 0.3 % code = 1036) NUCLEATED RBCS (test code = 0.0 /100WBC'S 1065) PLATELET COUNT (test code = 312 K/UL 1015) ABSOLUTE NEUTROPHILS (test code 6.63 K/UL = 1066) ABSOLUTE LYMPHOCYTES (test code 2.77 K/UL = 1067) ABSOLUTE MONOCYTES (test code = 0.75 K/UL 1068) ABSOLUTE EOSINOPHILS (test code 0.39 K/UL = 1040) ABSOLUTE BASOPHILS (test code = 0.09 K/UL 1069) ABS IMMATURE GRANULOCYTES (test 0.03 K/UL code = 1020) ABS NUCLEATED RBCS (test code = 0.00 K/UL 85100) CBC W/AUTO [id number] 00:00:00 Test Item Value Reference Range Interpretation Comments WBC (test code = 1001) 10.7 K/UL RBC (test code = 1002) 4.21 M/UL HEMOGLOBIN (test code = 1003) 13.1 G/DL HEMATOCRIT (test code = 1004) 38.4 % MCV (test code = 1005) 91.2 fL MCH (test code = 1006) 31.1 PG MCHC (test code = 1007) 34.1 G/DL RDW (test code = 1038) 11.9 % NEUTROPHILS (test code = 1008) 62.2 % LYMPHOCYTES (test code = 1010) 26.0 % MONOCYTES (test code = 1011) 7.0 % EOSINOPHILS (test code = 1012) 3.7 % BASOPHILS (test code = 1013) 0.8 % IMMATURE GRANULOCYTES (test 0.3 % code = 1036) NUCLEATED RBCS (test code = 0.0 /100WBC'S 1065) PLATELET COUNT (test code = 312 K/UL 1015) ABSOLUTE NEUTROPHILS (test code 6.63 K/UL = 1066) ABSOLUTE LYMPHOCYTES (test code 2.77 K/UL = 1067) ABSOLUTE MONOCYTES (test code = 0.75 K/UL 1068) ABSOLUTE EOSINOPHILS (test code 0.39 K/UL = 1040) ABSOLUTE BASOPHILS (test code = 0.09 K/UL 1069) ABS IMMATURE GRANULOCYTES (test 0.03 K/UL code = 1020) ABS NUCLEATED RBCS (test code = 0.00 K/UL 67007) COMPREHENSIVE METABOLIC [id number] 00:00:00 Test Item Value Reference Range Interpretation Comments GLUCOSE (test code = 2217) 113 MG/DL BUN (test code = 2208) 17 MG/DL CREATININE (test code = 2214) 0.56 MG/DL eGFR (2020 CKD-EPI) (test 102 ML/MIN/1.73 code = 15910) CALC BUN/CREAT (test code = 30 RATIO 2235) SODIUM (test code = 2231) 143 MEQ/L POTASSIUM (test code = 2228) 3.9 MEQ/L CHLORIDE (test code = 2215) 106 MEQ/L CARBON DIOXIDE (test code = 24 MEQ/L 2206) CALCIUM (test code = 2209) 9.3 MG/DL PROTEIN, TOTAL (test code = 6.9 G/DL 2228) ALBUMIN (test code = 2201) 4.1 G/DL CALC GLOBULIN (test code = 2.8 G/DL 2240) CALC A/G RATIO (test code = 1.5 RATIO 2234) BILIRUBIN, TOTAL (test code = 0.2 MG/DL 2206) ALKALINE PHOSPHATASE (test 85 U/L code = 2204) AST (test code = 2218) 13 U/L ALT (test code = 2219) 12 U/L COMPREHENSIVE METABOLIC [id number] 00:00:00 Test Item Value Reference Range Interpretation Comments GLUCOSE (test code = 2217) 113 MG/DL BUN (test code = 2208) 17 MG/DL CREATININE (test code = 2214) 0.56 MG/DL eGFR (2020 CKD-EPI) (test 102 ML/MIN/1.73 code = 46636) CALC BUN/CREAT (test code = 30 RATIO 2235) SODIUM (test code = 2231) 143 MEQ/L POTASSIUM (test code = 2228) 3.9 MEQ/L CHLORIDE (test code = 2215) 106 MEQ/L CARBON DIOXIDE (test code = 24 MEQ/L 2205) CALCIUM (test code = 2209) 9.3 MG/DL PROTEIN, TOTAL (test code = 6.9 G/DL 2228) ALBUMIN (test code = 2201) 4.1 G/DL CALC GLOBULIN (test code = 2.8 G/DL 2239) CALC A/G RATIO (test code = 1.5 RATIO 2233) BILIRUBIN, TOTAL (test code = 0.2 MG/DL 2206) ALKALINE PHOSPHATASE (test 85 U/L code = 220) AST (test code = 2218) 13 U/L ALT (test code = 2219) 12 U/L CBC W/AUTO DIFF WITH [id number] 04:39:29 Test Item Value Reference Range Interpretation Comments WBC (test code = 7.7 K/UL 3.5-11.0 1001) RBC (test code = 4.25 M/UL 3.80-5.40 1002) HEMOGLOBIN (test code 13.1 G/DL 11.5-15.5 = 1003) HEMATOCRIT (test code 38.3 % 34.0-45.0 = 1004) MCV (test code = 90.1 fL 80.0-99.0 1005) MCH (test code = 30.8 PG 25.0-33.0 1006) MCHC (test code = 34.2 G/DL 31.0-36.0 1007) RDW (test code = 12.2 % 11.5-15.0 1038) NEUTROPHILS (test 62.5 % code = 1008) LYMPHOCYTES (test 25.1 % code = 1010) MONOCYTES (test code 5.7 % = 1011) EOSINOPHILS (test 5.5 % code = 1012) BASOPHILS (test code 0.9 % = 1013) IMMATURE GRANULOCYTES 0.3 % (test code = 1036) NUCLEATED RBCS (test 0.0 /100 WBC'S See_Comment [Aut omated code = 1065) message] The sy stem which generated this result transmitted reference range : 0.0. The refere nce range was not u sed to interpret th is result as normal/abnormal . PLATELET COUNT (test 329 K/UL 130-400 code = 1015) ABSOLUTE NEUTROPHILS 4.82 K/UL 1.50-7.50 (test code = 1066) ABSOLUTE LYMPHOCYTES 1.93 K/UL 1.00-4.00 (test code = 1067) ABSOLUTE MONOCYTES 0.44 K/UL 0.20-1.00 (test code = 1068) ABSOLUTE EOSINOPHILS 0.42 K/UL 0.00-0.50 (test code = 1040) ABSOLUTE BASOPHILS 0.07 K/UL 0.00-0.20 (test code = 1069) ABS IMMATURE 0.02 K/UL 0.00-0.10 GRANULOCYTES (test code = 1020) ABS NUCLEATED RBCS 0.00 K/UL 0.00-0.11 (test code = 11180) HEPATIC FUNCTION [id number] 03:30:38 Test Item Value Reference Range Interpretation Comments PROTEIN, TOTAL (test 6.7 G/DL 6.1-8.3 code = 2228) ALBUMIN (test code = 4.0 G/DL 3.5-5.2 2200) BILIRUBIN, TOTAL 0.3 MG/DL See_Comment [Automated message] (test code = 2206) The syste m which generated this result transmitted ref erence range: <=1.2. T he reference range was not used to interpr et this result as normal/abnormal . BILIRUBIN, DIRECT 0.1 MG/DL 0.0-0.3 (test code = 2021) ALKALINE PHOSPHATASE 94 U/L 40-140 (test code = 2203) AST (test code = 15 U/L 9-40 2217) ALT (test code = 13 U/L 5-40 UNLESS OTH ERWISE 2218) INDICATED, ALL TESTING PERFORMED [facility] [address] [place] [address] 4 LABORATORY DIRE CTOR: GONZALEZ ARMAS M.D. CLIA NUMBER [id number] [facility] [place] [place]. [id number] CBC W/AUTO [id number] 00:00:00 Test Item Value Reference Range Interpretation Comments WBC (test code = 1001) 7.7 K/UL RBC (test code = 1002) 4.25 M/UL HEMOGLOBIN (test code = 1003) 13.1 G/DL HEMATOCRIT (test code = 1004) 38.3 % MCV (test code = 1005) 90.1 fL MCH (test code = 1006) 30.8 PG MCHC (test code = 1007) 34.2 G/DL RDW (test code = 1038) 12.2 % NEUTROPHILS (test code = 1008) 62.5 % LYMPHOCYTES (test code = 1010) 25.1 % MONOCYTES (test code = 1011) 5.7 % EOSINOPHILS (test code = 1012) 5.5 % BASOPHILS (test code = 1013) 0.9 % IMMATURE GRANULOCYTES (test 0.3 % code = 1036) NUCLEATED RBCS (test code = 0.0 /100WBC'S 1065) PLATELET COUNT (test code = 329 K/UL 1015) ABSOLUTE NEUTROPHILS (test code 4.82 K/UL = 1066) ABSOLUTE LYMPHOCYTES (test code 1.93 K/UL = 1067) ABSOLUTE MONOCYTES (test code = 0.44 K/UL 1068) ABSOLUTE EOSINOPHILS (test code 0.42 K/UL = 1040) ABSOLUTE BASOPHILS (test code = 0.07 K/UL 1069) ABS IMMATURE GRANULOCYTES (test 0.02 K/UL code = 1020) ABS NUCLEATED RBCS (test code = 0.00 K/UL 26581) CBC W/AUTO [id number] 00:00:00 Test Item Value Reference Range Interpretation Comments WBC (test code = 1001) 7.7 K/UL RBC (test code = 1002) 4.25 M/UL HEMOGLOBIN (test code = 1003) 13.1 G/DL HEMATOCRIT (test code = 1004) 38.3 % MCV (test code = 1005) 90.1 fL MCH (test code = 1006) 30.8 PG MCHC (test code = 1007) 34.2 G/DL RDW (test code = 1038) 12.2 % NEUTROPHILS (test code = 1008) 62.5 % LYMPHOCYTES (test code = 1010) 25.1 % MONOCYTES (test code = 1011) 5.7 % EOSINOPHILS (test code = 1012) 5.5 % BASOPHILS (test code = 1013) 0.9 % IMMATURE GRANULOCYTES (test 0.3 % code = 1036) NUCLEATED RBCS (test code = 0.0 /100WBC'S 1065) PLATELET COUNT (test code = 329 K/UL 1015) ABSOLUTE NEUTROPHILS (test code 4.82 K/UL = 1066) ABSOLUTE LYMPHOCYTES (test code 1.93 K/UL = 1067) ABSOLUTE MONOCYTES (test code = 0.44 K/UL 1068) ABSOLUTE EOSINOPHILS (test code 0.42 K/UL = 1040) ABSOLUTE BASOPHILS (test code = 0.07 K/UL 1069) ABS IMMATURE GRANULOCYTES (test 0.02 K/UL code = 1020) ABS NUCLEATED RBCS (test code = 0.00 K/UL 22074) CBC W/AUTO [id number] 00:00:00 Test Item Value Reference Range Interpretation Comments WBC (test code = 1001) 7.7 K/UL RBC (test code = 1002) 4.25 M/UL HEMOGLOBIN (test code = 1003) 13.1 G/DL HEMATOCRIT (test code = 1004) 38.3 % MCV (test code = 1005) 90.1 fL MCH (test code = 1006) 30.8 PG MCHC (test code = 1007) 34.2 G/DL RDW (test code = 1038) 12.2 % NEUTROPHILS (test code = 1008) 62.5 % LYMPHOCYTES (test code = 1010) 25.1 % MONOCYTES (test code = 1011) 5.7 % EOSINOPHILS (test code = 1012) 5.5 % BASOPHILS (test code = 1013) 0.9 % IMMATURE GRANULOCYTES (test 0.3 % code = 1036) NUCLEATED RBCS (test code = 0.0 /100WBC'S 1065) PLATELET COUNT (test code = 329 K/UL 1015) ABSOLUTE NEUTROPHILS (test code 4.82 K/UL = 1066) ABSOLUTE LYMPHOCYTES (test code 1.93 K/UL = 1067) ABSOLUTE MONOCYTES (test code = 0.44 K/UL 1068) ABSOLUTE EOSINOPHILS (test code 0.42 K/UL = 1040) ABSOLUTE BASOPHILS (test code = 0.07 K/UL 1069) ABS IMMATURE GRANULOCYTES (test 0.02 K/UL code = 1020) ABS NUCLEATED RBCS (test code = 0.00 K/UL 18446) LIVER (HEPATIC) FUNCTION [id number] 00:00:00 Test Item Value Reference Range Interpretation Comments PROTEIN, TOTAL (test code = 2229) 6.7 G/DL ALBUMIN (test code = 2201) 4.0 G/DL BILIRUBIN, TOTAL (test code = 2207) 0.3 MG/DL BILIRUBIN, DIRECT (test code = 0.1 MG/DL 2021) ALKALINE PHOSPHATASE (test code = 94 U/L 2203) AST (test code = 2218) 15 U/L ALT (test code = 2219) 13 U/L LIVER (HEPATIC) FUNCTION [id number] 00:00:00 Test Item Value Reference Range Interpretation Comments PROTEIN, TOTAL (test code = 222) 6.7 G/DL ALBUMIN (test code = 2201) 4.0 G/DL BILIRUBIN, TOTAL (test code = 2207) 0.3 MG/DL BILIRUBIN, DIRECT (test code = 0.1 MG/DL 2021) ALKALINE PHOSPHATASE (test code = 94 U/L 2203) AST (test code = 2218) 15 U/L ALT (test code = 2219) 13 U/L CBC W/AUTO DIFF WITH [id number] 03:37:25 Test Item Value Reference Range Interpretation Comments WBC (test code = 7.3 K/UL 3.5-11.0 1001) RBC (test code = 4.06 M/UL 3.80-5.40 1002) HEMOGLOBIN (test code 12.7 G/DL 11.5-15.5 = 1003) HEMATOCRIT (test code 37.4 % 34.0-45.0 = 1004) MCV (test code = 92.1 fL 80.0-99.0 1005) MCH (test code = 31.3 PG 25.0-33.0 1006) MCHC (test code = 34.0 G/DL 31.0-36.0 1007) RDW (test code = 11.8 % 11.5-15.0 1038) NEUTROPHILS (test 55.4 % code = 1008) LYMPHOCYTES (test 30.1 % code = 1010) MONOCYTES (test code 7.9 % = 1011) EOSINOPHILS (test 5.5 % code = 1012) BASOPHILS (test code 0.8 % = 1013) IMMATURE GRANYLOCYTES 0.3 % (test code = 1036) NUCLEATED RBCS (test 0.0 /100 WBC'S See_Comment [Aut omated code = 1065) message] The sy stem which generated this result transmitted reference range : 0.0. The refere nce range was not u sed to interpret th is result as normal/abnormal . PLATELET COUNT (test 320 K/UL 130-400 code = 1015) ABSOLUTE NEUTROPHILS 4.06 K/UL 1.50-7.50 (test code = 1066) ABSOLUTE LYMPHOCYTES 2.20 K/UL 1.00-4.00 (test code = 1067) ABSOLUTE MONOCYTES 0.58 K/UL 0.20-1.00 (test code = 1068) ABSOLUTE EOSINOPHILS 0.40 K/UL 0.00-0.50 (test code = 1040) ABSOLUTE BASOPHILS 0.06 K/UL 0.00-0.20 (test code = 1069) ABS IMMATURE 0.02 K/UL 0.00-0.10 GRANULOCYTES (test code = 1020) ABS NUCLEATED RBCS 0.00 K/UL 0.00-0.11 (test code = 68940) HEPATIC FUNCTION [id number] 03:10:10 Test Item Value Reference Range Interpretation Comments PROTEIN, TOTAL (test 6.5 G/DL 6.1-8.3 code = 2228) ALBUMIN (test code = 4.0 G/DL 3.5-5.2 2200) BILIRUBIN, TOTAL <0.2 MG/DL See_Comment [Automated message] (test code = 2206) The syste m which generated this result transmitted ref erence range: <=1.2. T he reference range was not used to int erpret this result as normal/abnormal . BILIRUBIN, DIRECT <0.2 MG/DL 0.0-0.3 (test code = 2021) ALKALINE PHOSPHATASE 83 U/L 40-140 (test code = 2203) AST (test code = 16 U/L 9-40 2217) ALT (test code = 11 U/L 5-40 UNLESS OTH ERWISE 2218) INDICATED, ALL TESTING PERFORMED [facility], [id number] [place] [address] [facility] DIRECTOR: GONZALEZ SMITH M.D. CLIA NUMBER [id number] CAP ACCREDITATION N O. [id number] CBC W/AUTO [id number] 00:00:00 Test Item Value Reference Range Interpretation Comments WBC (test code = 1001) 7.3 K/UL RBC (test code = 1002) 4.06 M/UL HEMOGLOBIN (test code = 1003) 12.7 G/DL HEMATOCRIT (test code = 1004) 37.4 % MCV (test code = 1005) 92.1 fL MCH (test code = 1006) 31.3 PG MCHC (test code = 1007) 34.0 G/DL RDW (test code = 1038) 11.8 % NEUTROPHILS (test code = 1008) 55.4 % LYMPHOCYTES (test code = 1010) 30.1 % MONOCYTES (test code = 1011) 7.9 % EOSINOPHILS (test code = 1012) 5.5 % BASOPHILS (test code = 1013) 0.8 % IMMATURE GRANYLOCYTES (test 0.3 % code = 1036) NUCLEATED RBCS (test code = 0.0 /100WBC'S 1065) PLATELET COUNT (test code = 320 K/UL 1015) ABSOLUTE NEUTROPHILS (test code 4.06 K/UL = 1066) ABSOLUTE LYMPHOCYTES (test code 2.20 K/UL = 1067) ABSOLUTE MONOCYTES (test code = 0.58 K/UL 1068) ABSOLUTE EOSINOPHILS (test code 0.40 K/UL = 1040) ABSOLUTE BASOPHILS (test code = 0.06 K/UL 1069) ABS IMMATURE GRANULOCYTES (test 0.02 K/UL code = 1020) ABS NUCLEATED RBCS (test code = 0.00 K/UL 85051) CBC W/AUTO [id number] 00:00:00 Test Item Value Reference Range Interpretation Comments WBC (test code = 1001) 7.3 K/UL RBC (test code = 1002) 4.06 M/UL HEMOGLOBIN (test code = 1003) 12.7 G/DL HEMATOCRIT (test code = 1004) 37.4 % MCV (test code = 1005) 92.1 fL MCH (test code = 1006) 31.3 PG MCHC (test code = 1007) 34.0 G/DL RDW (test code = 1038) 11.8 % NEUTROPHILS (test code = 1008) 55.4 % LYMPHOCYTES (test code = 1010) 30.1 % MONOCYTES (test code = 1011) 7.9 % EOSINOPHILS (test code = 1012) 5.5 % BASOPHILS (test code = 1013) 0.8 % IMMATURE GRANYLOCYTES (test 0.3 % code = 1036) NUCLEATED RBCS (test code = 0.0 /100WBC'S 1065) PLATELET COUNT (test code = 320 K/UL 1015) ABSOLUTE NEUTROPHILS (test code 4.06 K/UL = 1066) ABSOLUTE LYMPHOCYTES (test code 2.20 K/UL = 1067) ABSOLUTE MONOCYTES (test code = 0.58 K/UL 1068) ABSOLUTE EOSINOPHILS (test code 0.40 K/UL = 1040) ABSOLUTE BASOPHILS (test code = 0.06 K/UL 1069) ABS IMMATURE GRANULOCYTES (test 0.02 K/UL code = 1020) ABS NUCLEATED RBCS (test code = 0.00 K/UL 44275) CBC W/AUTO [id number] 00:00:00 Test Item Value Reference Range Interpretation Comments WBC (test code = 1001) 7.3 K/UL RBC (test code = 1002) 4.06 M/UL HEMOGLOBIN (test code = 1003) 12.7 G/DL HEMATOCRIT (test code = 1004) 37.4 % MCV (test code = 1005) 92.1 fL MCH (test code = 1006) 31.3 PG MCHC (test code = 1007) 34.0 G/DL RDW (test code = 1038) 11.8 % NEUTROPHILS (test code = 1008) 55.4 % LYMPHOCYTES (test code = 1010) 30.1 % MONOCYTES (test code = 1011) 7.9 % EOSINOPHILS (test code = 1012) 5.5 % BASOPHILS (test code = 1013) 0.8 % IMMATURE GRANYLOCYTES (test 0.3 % code = 1036) NUCLEATED RBCS (test code = 0.0 /100WBC'S 1065) PLATELET COUNT (test code = 320 K/UL 1015) ABSOLUTE NEUTROPHILS (test code 4.06 K/UL = 1066) ABSOLUTE LYMPHOCYTES (test code 2.20 K/UL = 1067) ABSOLUTE MONOCYTES (test code = 0.58 K/UL 1068) ABSOLUTE EOSINOPHILS (test code 0.40 K/UL = 1040) ABSOLUTE BASOPHILS (test code = 0.06 K/UL 1069) ABS IMMATURE GRANULOCYTES (test 0.02 K/UL code = 1020) ABS NUCLEATED RBCS (test code = 0.00 K/UL 36902) LIVER (HEPATIC) FUNCTION [id number] 00:00:00 Test Item Value Reference Range Interpretation Comments PROTEIN, TOTAL (test code = 2229) 6.5 G/DL ALBUMIN (test code = 2201) 4.0 G/DL BILIRUBIN, TOTAL (test code = <0.2 MG/DL 2206) BILIRUBIN, DIRECT (test code = <0.2 MG/DL 2021) ALKALINE PHOSPHATASE (test code = 83 U/L 2203) AST (test code = 2218) 16 U/L ALT (test code = 2219) 11 U/L LIVER (HEPATIC) FUNCTION [id number] 00:00:00 Test Item Value Reference Range Interpretation Comments PROTEIN, TOTAL (test code = 2229) 6.5 G/DL ALBUMIN (test code = 2201) 4.0 G/DL BILIRUBIN, TOTAL (test code = <0.2 MG/DL 2206) BILIRUBIN, DIRECT (test code = <0.2 MG/DL 2021) ALKALINE PHOSPHATASE (test code = 83 U/L 2203) AST (test code = 2218) 16 U/L ALT (test code = 2219) 11 U/L NOTE: [ADDED]2021-04-26 00:00:00 Test Item Value Reference Range Interpretation Comments NOTE: (test code = 998) (NOTE) CBC W/AUTO DIFF WITH PLATELETS [ADDED]2021-04-25 00:00:00 Test Item Value Reference Range Interpretation Comments WBC (test code = 1001) 8.0 K/UL RBC (test code = 1002) 4.12 M/UL HEMOGLOBIN (test code = 1003) 13.0 G/DL HEMATOCRIT (test code = 1004) 38.8 % MCV (test code = 1005) 94.2 fL MCH (test code = 1006) 31.6 PG MCHC (test code = 1007) 33.5 G/DL RDW (test code = 1038) 12.2 % NEUTROPHILS (test code = 1008) 58.1 % LYMPHOCYTES (test code = 1010) 26.3 % MONOCYTES (test code = 1011) 8.5 % EOSINOPHILS (test code = 1012) 5.9 % BASOPHILS (test code = 1013) 0.9 % IMMATURE GRANULOCYTES (test 0.3 % code = 1036) NUCLEATED RBCS (test code = 0.0 /100WBC'S 1065) PLATELET COUNT (test code = 328 K/UL 1015) ABSOLUTE NEUTROPHILS (test code 4.63 K/UL = 1066) ABSOLUTE LYMPHOCYTES (test code 2.10 K/UL = 1067) ABSOLUTE MONOCYTES (test code = 0.68 K/UL 1068) ABSOLUTE EOSINOPHILS (test code 0.47 K/UL = 1040) ABSOLUTE BASOPHILS (test code = 0.07 K/UL 1069) ABS IMMATURE GRANULOCYTES (test 0.02 K/UL code = 1020) CBC W/AUTO DIFF WITH PLATELETS [ADDED]2021-04-25 00:00:00 Test Item Value Reference Range Interpretation Comments WBC (test code = 1001) 8.0 K/UL RBC (test code = 1002) 4.12 M/UL HEMOGLOBIN (test code = 1003) 13.0 G/DL HEMATOCRIT (test code = 1004) 38.8 % MCV (test code = 1005) 94.2 fL MCH (test code = 1006) 31.6 PG MCHC (test code = 1007) 33.5 G/DL RDW (test code = 1038) 12.2 % NEUTROPHILS (test code = 1008) 58.1 % LYMPHOCYTES (test code = 1010) 26.3 % MONOCYTES (test code = 1011) 8.5 % EOSINOPHILS (test code = 1012) 5.9 % BASOPHILS (test code = 1013) 0.9 % IMMATURE GRANULOCYTES (test 0.3 % code = 1036) NUCLEATED RBCS (test code = 0.0 /100WBC'S 1065) PLATELET COUNT (test code = 328 K/UL 1015) ABSOLUTE NEUTROPHILS (test code 4.63 K/UL = 1066) ABSOLUTE LYMPHOCYTES (test code 2.10 K/UL = 1067) ABSOLUTE MONOCYTES (test code = 0.68 K/UL 1068) ABSOLUTE EOSINOPHILS (test code 0.47 K/UL = 1040) ABSOLUTE BASOPHILS (test code = 0.07 K/UL 1069) ABS IMMATURE GRANULOCYTES (test 0.02 K/UL code = 1020) CBC W/AUTO DIFF WITH PLATELETS [ADDED]2021-04-25 00:00:00 Test Item Value Reference Range Interpretation Comments WBC (test code = 1001) 8.0 K/UL RBC (test code = 1002) 4.12 M/UL HEMOGLOBIN (test code = 1003) 13.0 G/DL HEMATOCRIT (test code = 1004) 38.8 % MCV (test code = 1005) 94.2 fL MCH (test code = 1006) 31.6 PG MCHC (test code = 1007) 33.5 G/DL RDW (test code = 1038) 12.2 % NEUTROPHILS (test code = 1008) 58.1 % LYMPHOCYTES (test code = 1010) 26.3 % MONOCYTES (test code = 1011) 8.5 % EOSINOPHILS (test code = 1012) 5.9 % BASOPHILS (test code = 1013) 0.9 % IMMATURE GRANULOCYTES (test 0.3 % code = 1036) NUCLEATED RBCS (test code = 0.0 /100WBC'S 1065) PLATELET COUNT (test code = 328 K/UL 1015) ABSOLUTE NEUTROPHILS (test code 4.63 K/UL = 1066) ABSOLUTE LYMPHOCYTES (test code 2.10 K/UL = 1067) ABSOLUTE MONOCYTES (test code = 0.68 K/UL 1068) ABSOLUTE EOSINOPHILS (test code 0.47 K/UL = 1040) ABSOLUTE BASOPHILS (test code = 0.07 K/UL 1069) ABS IMMATURE GRANULOCYTES (test 0.02 K/UL code = 1020) CBC W/AUTO [id number] 00:00:00 Test Item Value Reference Range Interpretation Comments WBC (test code = 1001) 7.3 K/UL RBC (test code = 1002) 4.12 M/UL HEMOGLOBIN (test code = 1003) 12.4 G/DL HEMATOCRIT (test code = 1004) 38.1 % MCV (test code = 1005) 92.5 fL MCH (test code = 1006) 30.1 PG MCHC (test code = 1007) 32.5 G/DL RDW (test code = 1038) 13.0 % NEUTROPHILS (test code = 1008) 58.5 % LYMPHOCYTES (test code = 1010) 28.0 % MONOCYTES (test code = 1011) 6.9 % EOSINOPHILS (test code = 1012) 5.2 % BASOPHILS (test code = 1013) 1.0 % IMMATURE GRANULOCYTES (test 0.4 % code = 1036) NUCLEATED RBCS (test code = 0.0 /100WBC'S 1065) PLATELET COUNT (test code = 306 K/UL 1015) ABSOLUTE NEUTROPHILS (test code 4.26 K/UL = 1066) ABSOLUTE LYMPHOCYTES (test code 2.04 K/UL = 1067) ABSOLUTE MONOCYTES (test code = 0.50 K/UL 1068) ABSOLUTE EOSINOPHILS (test code 0.38 K/UL = 1040) ABSOLUTE BASOPHILS (test code = 0.07 K/UL 1069) ABS IMMATURE GRANULOCYTES (test 0.03 K/UL code = 1020) ABS NUCLEATED RBCS (test code = 0.00 K/UL 97527) CBC W/AUTO [id number] 00:00:00 Test Item Value Reference Range Interpretation Comments WBC (test code = 1001) 7.3 K/UL RBC (test code = 1002) 4.12 M/UL HEMOGLOBIN (test code = 1003) 12.4 G/DL HEMATOCRIT (test code = 1004) 38.1 % MCV (test code = 1005) 92.5 fL MCH (test code = 1006) 30.1 PG MCHC (test code = 1007) 32.5 G/DL RDW (test code = 1038) 13.0 % NEUTROPHILS (test code = 1008) 58.5 % LYMPHOCYTES (test code = 1010) 28.0 % MONOCYTES (test code = 1011) 6.9 % EOSINOPHILS (test code = 1012) 5.2 % BASOPHILS (test code = 1013) 1.0 % IMMATURE GRANULOCYTES (test 0.4 % code = 1036) NUCLEATED RBCS (test code = 0.0 /100WBC'S 1065) PLATELET COUNT (test code = 306 K/UL 1015) ABSOLUTE NEUTROPHILS (test code 4.26 K/UL = 1066) ABSOLUTE LYMPHOCYTES (test code 2.04 K/UL = 1067) ABSOLUTE MONOCYTES (test code = 0.50 K/UL 1068) ABSOLUTE EOSINOPHILS (test code 0.38 K/UL = 1040) ABSOLUTE BASOPHILS (test code = 0.07 K/UL 1069) ABS IMMATURE GRANULOCYTES (test 0.03 K/UL code = 1020) ABS NUCLEATED RBCS (test code = 0.00 K/UL 13691) CBC W/AUTO [id number] 00:00:00 Test Item Value Reference Range Interpretation Comments WBC (test code = 1001) 7.3 K/UL RBC (test code = 1002) 4.12 M/UL HEMOGLOBIN (test code = 1003) 12.4 G/DL HEMATOCRIT (test code = 1004) 38.1 % MCV (test code = 1005) 92.5 fL MCH (test code = 1006) 30.1 PG MCHC (test code = 1007) 32.5 G/DL RDW (test code = 1038) 13.0 % NEUTROPHILS (test code = 1008) 58.5 % LYMPHOCYTES (test code = 1010) 28.0 % MONOCYTES (test code = 1011) 6.9 % EOSINOPHILS (test code = 1012) 5.2 % BASOPHILS (test code = 1013) 1.0 % IMMATURE GRANULOCYTES (test 0.4 % code = 1036) NUCLEATED RBCS (test code = 0.0 /100WBC'S 1065) PLATELET COUNT (test code = 306 K/UL 1015) ABSOLUTE NEUTROPHILS (test code 4.26 K/UL = 1066) ABSOLUTE LYMPHOCYTES (test code 2.04 K/UL = 1067) ABSOLUTE MONOCYTES (test code = 0.50 K/UL 1068) ABSOLUTE EOSINOPHILS (test code 0.38 K/UL = 1040) ABSOLUTE BASOPHILS (test code = 0.07 K/UL 1069) ABS IMMATURE GRANULOCYTES (test 0.03 K/UL code = 1020) ABS NUCLEATED RBCS (test code = 0.00 K/UL 74349) LIVER (HEPATIC) FUNCTION [id number] 00:00:00 Test Item Value Reference Range Interpretation Comments PROTEIN, TOTAL (test code = 2229) 6.6 G/DL ALBUMIN (test code = 2201) 4.1 G/DL BILIRUBIN, TOTAL (test code = 2207) 0.2 MG/DL BILIRUBIN, DIRECT (test code = 0.1 MG/DL 2021) ALKALINE PHOSPHATASE (test code = 76 U/L 2203) AST (test code = 2218) 16 U/L ALT (test code = 2219) 11 U/L LIVER (HEPATIC) FUNCTION [id number] 00:00:00 Test Item Value Reference Range Interpretation Comments PROTEIN, TOTAL (test code = 2229) 6.6 G/DL ALBUMIN (test code = 2201) 4.1 G/DL BILIRUBIN, TOTAL (test code = 2207) 0.2 MG/DL BILIRUBIN, DIRECT (test code = 0.1 MG/DL 2021) ALKALINE PHOSPHATASE (test code = 76 U/L 2203) AST (test code = 2218) 16 U/L ALT (test code = 2219) 11 U/L CBC W/AUTO [id number] 00:00:00 Test Item Value Reference Range Interpretation Comments WBC (test code = 1001) 8.5 K/UL RBC (test code = 1002) 4.16 M/UL HEMOGLOBIN (test code = 1003) 13.3 G/DL HEMATOCRIT (test code = 1004) 38.0 % MCV (test code = 1005) 91.3 fL MCH (test code = 1006) 32.0 PG MCHC (test code = 1007) 35.0 G/DL RDW (test code = 1038) 11.9 % NEUTROPHILS (test code = 1008) 61.0 % LYMPHOCYTES (test code = 1010) 25.0 % MONOCYTES (test code = 1011) 6.1 % EOSINOPHILS (test code = 1012) 6.8 % BASOPHILS (test code = 1013) 0.7 % IMMATURE GRANULOCYTES (test 0.4 % code = 1036) NUCLEATED RBCS (test code = 0.0 /100WBC'S 1065) PLATELET COUNT (test code = 295 K/UL 1015) ABSOLUTE NEUTROPHILS (test code 5.19 K/UL = 1066) ABSOLUTE LYMPHOCYTES (test code 2.13 K/UL = 1067) ABSOLUTE MONOCYTES (test code = 0.52 K/UL 1068) ABSOLUTE EOSINOPHILS (test code 0.58 K/UL = 1040) ABSOLUTE BASOPHILS (test code = 0.06 K/UL 1069) ABS IMMATURE GRANULOCYTES (test 0.03 K/UL code = 1020) ABS NUCLEATED RBCS (test code = 0.00 K/UL 41540) CBC W/AUTO [id number] 00:00:00 Test Item Value Reference Range Interpretation Comments WBC (test code = 1001) 8.5 K/UL RBC (test code = 1002) 4.16 M/UL HEMOGLOBIN (test code = 1003) 13.3 G/DL HEMATOCRIT (test code = 1004) 38.0 % MCV (test code = 1005) 91.3 fL MCH (test code = 1006) 32.0 PG MCHC (test code = 1007) 35.0 G/DL RDW (test code = 1038) 11.9 % NEUTROPHILS (test code = 1008) 61.0 % LYMPHOCYTES (test code = 1010) 25.0 % MONOCYTES (test code = 1011) 6.1 % EOSINOPHILS (test code = 1012) 6.8 % BASOPHILS (test code = 1013) 0.7 % IMMATURE GRANULOCYTES (test 0.4 % code = 1036) NUCLEATED RBCS (test code = 0.0 /100WBC'S 1065) PLATELET COUNT (test code = 295 K/UL 1015) ABSOLUTE NEUTROPHILS (test code 5.19 K/UL = 1066) ABSOLUTE LYMPHOCYTES (test code 2.13 K/UL = 1067) ABSOLUTE MONOCYTES (test code = 0.52 K/UL 1068) ABSOLUTE EOSINOPHILS (test code 0.58 K/UL = 1040) ABSOLUTE BASOPHILS (test code = 0.06 K/UL 1069) ABS IMMATURE GRANULOCYTES (test 0.03 K/UL code = 1020) ABS NUCLEATED RBCS (test code = 0.00 K/UL 89479) CBC W/AUTO [id number] 00:00:00 Test Item Value Reference Range Interpretation Comments WBC (test code = 1001) 8.5 K/UL RBC (test code = 1002) 4.16 M/UL HEMOGLOBIN (test code = 1003) 13.3 G/DL HEMATOCRIT (test code = 1004) 38.0 % MCV (test code = 1005) 91.3 fL MCH (test code = 1006) 32.0 PG MCHC (test code = 1007) 35.0 G/DL RDW (test code = 1038) 11.9 % NEUTROPHILS (test code = 1008) 61.0 % LYMPHOCYTES (test code = 1010) 25.0 % MONOCYTES (test code = 1011) 6.1 % EOSINOPHILS (test code = 1012) 6.8 % BASOPHILS (test code = 1013) 0.7 % IMMATURE GRANULOCYTES (test 0.4 % code = 1036) NUCLEATED RBCS (test code = 0.0 /100WBC'S 1065) PLATELET COUNT (test code = 295 K/UL 1015) ABSOLUTE NEUTROPHILS (test code 5.19 K/UL = 1066) ABSOLUTE LYMPHOCYTES (test code 2.13 K/UL = 1067) ABSOLUTE MONOCYTES (test code = 0.52 K/UL 1068) ABSOLUTE EOSINOPHILS (test code 0.58 K/UL = 1040) ABSOLUTE BASOPHILS (test code = 0.06 K/UL 1069) ABS IMMATURE GRANULOCYTES (test 0.03 K/UL code = 1020) ABS NUCLEATED RBCS (test code = 0.00 K/UL 48923) COMPREHENSIVE METABOLIC [id number] 00:00:00 Test Item Value Reference Range Interpretation Comments GLUCOSE (test code = 2217) 135 MG/DL BUN (test code = 2208) 12 MG/DL CREATININE (test code = 2214) 0.50 MG/DL eGFR AMER. (test code 120 ML/MIN/1.73 = 49714) eGFR NON- AMER. (test 104 ML/MIN/1.73 code = 48453) CALC BUN/CREAT (test code = 24 RATIO 2235) SODIUM (test code = 2231) 140 MEQ/L POTASSIUM (test code = 2228) 4.1 MEQ/L CHLORIDE (test code = 2215) 104 MEQ/L CARBON DIOXIDE (test code = 25 MEQ/L 220) CALCIUM (test code = 2209) 9.4 MG/DL PROTEIN, TOTAL (test code = 6.6 G/DL 2228) ALBUMIN (test code = 2201) 4.1 G/DL CALC GLOBULIN (test code = 2.5 G/DL 2239) CALC A/G RATIO (test code = 1.6 RATIO 2234) BILIRUBIN, TOTAL (test code = <0.2 MG/DL 2206) ALKALINE PHOSPHATASE (test 87 U/L code = 2204) AST (test code = 2218) 18 U/L ALT (test code = 2219) 12 U/L COMPREHENSIVE METABOLIC [id number] 00:00:00 Test Item Value Reference Range Interpretation Comments GLUCOSE (test code = 2217) 135 MG/DL BUN (test code = 2208) 12 MG/DL CREATININE (test code = 2214) 0.50 MG/DL eGFR AMER. (test code 120 ML/MIN/1.73 = 70757) eGFR NON- AMER. (test 104 ML/MIN/1.73 code = 78771) CALC BUN/CREAT (test code = 24 RATIO 2235) SODIUM (test code = 2231) 140 MEQ/L POTASSIUM (test code = 2228) 4.1 MEQ/L CHLORIDE (test code = 2215) 104 MEQ/L CARBON DIOXIDE (test code = 25 MEQ/L 2206) CALCIUM (test code = 2209) 9.4 MG/DL PROTEIN, TOTAL (test code = 6.6 G/DL 2228) ALBUMIN (test code = 2201) 4.1 G/DL CALC GLOBULIN (test code = 2.5 G/DL 2240) CALC A/G RATIO (test code = 1.6 RATIO 2234) BILIRUBIN, TOTAL (test code = <0.2 MG/DL 2206) ALKALINE PHOSPHATASE (test 87 U/L code = 2204) AST (test code = 2218) 18 U/L ALT (test code = 2219) 12 U/L C-REACTIVE [id number] 00:00:00 Test Item Value Reference Range Interpretation Comments C-REACTIVE PROTEIN (test code = 0.5 MG/DL 3513) C-REACTIVE [id number] 00:00:00 Test Item Value Reference Range Interpretation Comments C-REACTIVE PROTEIN (test code = 0.5 MG/DL 3513) SEDIMENTATION [id number] 00:00:00 Test Item Value Reference Range Interpretation Comments SEDIMENTATION RATE (test code = 9 MM/HOUR 1017) SEDIMENTATION [id number] 00:00:00 Test Item Value Reference Range Interpretation Comments SEDIMENTATION RATE (test code = 9 MM/HOUR 1017) URIC [id number] 00:00:00 Test Item Value Reference Range Interpretation Comments URIC ACID (test code = 2233) 3.2 MG/DL URIC [id number] 00:00:00 Test Item Value Reference Range Interpretation Comments URIC ACID (test code = 2233) 3.2 MG/DL TIMOTHY (ANTI-NUCLEAR AB) WITH REFLEX [id number] 00:00:00 Test Item Value Reference Range Interpretation Comments ANTI-NUCLEAR ANTIBODIES (test code = NEGATIVE 3506) TIMOTHY (ANTI-NUCLEAR AB) WITH REFLEX [id number] 00:00:00 Test Item Value Reference Range Interpretation Comments ANTI-NUCLEAR ANTIBODIES (test code = NEGATIVE 3506) RHEUMATOID FACTOR, [id number] 00:00:00 Test Item Value Reference Range Interpretation Comments RHEUMATOID FACTOR, QUANT (test code 66 IU/ML = 3502) RHEUMATOID FACTOR, [id number] 00:00:00 Test Item Value Reference Range Interpretation Comments RHEUMATOID FACTOR, QUANT (test code 66 IU/ML = 3502) RHEUMATOID FACTOR, [id number] 00:00:00 Test Item Value Reference Range Interpretation Comments RHEUMATOID FACTOR, QUANT (test code 66 IU/ML = 3502)
--- NOTE | 2022-05-28 17:43 | RAD REPORT ---
EXAM DESCRIPTION: CT - Ct Stroke Brain Wo Cont - 05/28/2022 5:35 pm CLINICAL HISTORY: Numbness COMPARISON: 2019 TECHNIQUE: Computed axial tomography of the head was obtained. All CT scans are performed using dose optimization technique as appropriate and may include automated exposure control or mA/KV adjustment according to patient size. FINDINGS: An intracranial bleed is not seen . The ventricles are normal in caliber. No extra-axial fluid collection is noted. No significant hypodensity within the brain Fluid within the sinuses/ mastoids is not seen. IMPRESSION: No acute intracranial abnormality is seen. If patient's symptoms persist MRI of the bra in would be recommended. Dr Miramontes of the emergency room was notified at 5:34 p.m. May 28, 2022
[2022-05-28 17:56] LABS: Absolute Lymphocytes (CBC) 2.7 K/uL (0.7-4.9); Hematocrit 38.5 % (36.0-45.0); Lymphocytes % 29.8 % (15.3-44.8); MCV 92.1 fL (80-100); MPV 8.4 fL (7.6-11.3); RBC Red Blood Cell Count 4.18 M/uL (3.86-4.86)
[2022-05-28 18:09] LABS: Protime INR 1.05
[2022-05-28 18:15] LABS: Potassium 3.4 mmol/L (3.5-5.1); Troponin High Sensitivity 5.1 pg/mL (<58.9)
--- NOTE | 2022-05-28 18:15 | ER ---
Nurse's Notes [facility] Name: Ade Grady Age: 62 yrs Sex: Female : 1960 Arrival Date: 05/28/2022 Time: 17:11 Bed 6 Private MD: Diagnosis: Weakness;Chest pain, unspecified Presentation: 05/28 17:11 Chief complaint: Patient's son or daughter states: Son reports that patient woke up ss this morning feeling a little dizzy and off balance and has progressed to having chest pressure, bilateral arm and leg weakness and facial numbness. Son is concerned because patient presented in a similar way when she had her last stroke. Coronavirus screen: Client denies travel out of the [place] in the last 14 days. Ebola Screen: Patient denies exposure to infectious person. Patient denies travel to an Ebola-affected area in the 21 days before illness onset. Initial Sepsis Screen: Does the patient meet any 2 criteria? No. Patient's initial sepsis screen is negative. Does the patient have a suspected source of infection? No. Patient's initial sepsis screen is negative. Risk Assessment: Do you want to hurt yourself or someone else? Patient reports no desire to harm self or others. Note Last known well according to patient's son was yesterday at 8 pm when she went to bed. Onset of symptoms was May 27, 2022 at 08:00. 17:11 Method Of Arrival: Ambulatory ss 17:11 Acuity: MERLY 2 ss Triage Assessment: 17:35 General: Appears uncomfortable, Behavior is anxious. Pain: Complains of pain in chest ap3 Quality of pain is described as tightness. Neuro: Level of Consciousness is awake, alert, obeys commands, Oriented to person, place, time, situation, Appropriate for age. Neuro: Reports weakness. Cardiovascular: Reports chest pain, Patient's skin is warm and dry. Respiratory: Airway is patent Respiratory effort is even, unlabored, Respiratory pattern is regular, symmetrical. Historical: - Allergies: 17:24 No Known Allergies; ss - PMHx: 17:24 Arthritis; CVA; High Cholesterol; ss - Immunization history:: Client reports having NOT received the Covid vaccine. - Social history:: Smoking status: Patient denies any tobacco usage or history of. Screenin:34 Abuse screen: Denies threats or abuse. Nutritional screening: No deficits noted. ap3 Tuberculosis screening: No symptoms or risk factors identified. Fall Risk Fall in past 12 months (25 points). Secondary diagnosis (15 points) TIA, IV access (20 points). Ambulatory Aid- None/Bed Rest/Nurse Assist (0 pts). Gait- Weak (10 pts.). Mental Status- Oriented to own ability (0 pts). Total Shirley Fall Scale indicates High Risk Score (45 or more points). Fall prevention measures have been instituted. Side Rails Up X 2 Placed Close to Nursing Station Frequent Obs/Assessments Occuring Family Present and informed to notify staff if the need to leave the bedside As available patient and family educated on Fall Prevention Program and Strategies. Assessment: 17:37 Reassessment: Pt back from CT. ss 17:55 Reassessment: assisted patient to the bedside commode. no incidents to report. patient ap3 ambulated to bedside commode with minimal standby assistance. Vital Signs: 17:11 BP 163 / 98; Pulse 85; Resp 20; Temp 98.0(O); Pulse Ox 100% on R/A; Weight 81.65 kg; ss Pain 9/10; 17:55 BP 169 / 63; Pulse 86; Pulse Ox 100% on R/A; ap3 18:40 BP 147 / 61; Pulse 88; Resp 16; Pulse Ox 98% on R/A; db 20:39 BP 128 / 58; Pulse 82; Resp 18; Pulse Ox 98% on R/A; kl ED Course: 17:11 Patient arrived in ED. mr 17:20 Anand Miramontes MD is Attending Physician. kdr 17:20 Inserted saline lock: 20 gauge in right antecubital area, using aseptic technique. ss Blood collected. Patient maintains SpO2 saturation greater than 95% on room air. 17:23 Triage completed. ss 17:24 Arm band placed on left wrist. ss 17:34 Merry Corbett, PAULO is Primary Nurse. ap3 17:36 CT Stroke Brain w/o Contrast In Process Unspecified. EDMS 17:36 Placed in gown. Call light in reach. Side rails up X2. Adult w/ patient. Cardiac ap3 monitor on. Pulse ox on. NIBP on. Door closed. Noise minimized. Warm blanket given. 18:05 Stroke CXR 1 View In Process Unspecified. EDMS 18:14 Rufus Mclean MD is Hospitalizing Provider. kdr 19:23 Primary Nurse role handed off by Merry Corbett RN mw2 20:30 No apparent distress. Resting quietly. updated patient and family on diagnosis pt kl requesting to leave reports wishes to quarantine at home notified. 20:42 No provider procedures requiring assistance completed. IV discontinued, intact, kl bleeding controlled, No redness/swelling at site. Pressure dressing applied. Administered Medications: 18:50 Drug: Aspirin Chewable Tablet 324 mg Route: PO; bp Medication: 17:36 VIS not applicable for this client. ap3 Outcome: 18:14 Decision to Hospitalize by Provider. kdr 20:42 AMA AMA form signed 20:42 Condition: stable 20:42 Discharge instructions given to patient, Instructed on discharge instructions, follow up and referral plans. Demonstrated understanding of instructions, follow-up care. 20:42 Patient left the ED. Signatures: Dispatcher [employer] EDUT Krystina Bond RN RN Anand Zamudio MD MD kdr Rivera, Mary mr Angelina Chang, RN RN Amandeep Stein RN RN bp Merry Corbett RN RN ap3 Denys Avila mw2 Sirena Escobar RN RN db
--- NOTE | 2022-05-28 18:15 | EDPHYS ---
Physician Documentation [facility] Name: Ade Grady Age: 62 yrs Sex: Female : 1960 Arrival Date: 05/28/2022 Time: 17:11 Bed 6 Private MD: ED Physician Anand Miramontes HPI: 05/28 17:29 This 62 yrs old Female presents to ER via Ambulatory with complaints of kdr Numbness Of Arm, Numbness Of Mouth, Chest Tightness. 17:29 Patient awoke this morning feeling not her usual self. She felt "off" she felt "weak" kdr but she did not know what was happening to her. She had some difficulty speaking as well. Globally she was weak. Patient has a history of strokes and has presented in similar fashion with the result that she was diagnosed with a mild or small stroke previously. She does not have any known sequela from the prior strokes that has persisted. At this time when she presented, she is tremulous and finding it difficult to follow commands with any vigor. She is globally weak and without any focal deficit or demarcation. Additionally, the patient awoke in this same or similar state which the son who is here (translating and providing information) indicates that she has progressively been weaker over the course of the day. He also relates that her speech is somewhat impaired though it is difficult to tell whether this is a focal deficit given the global nature of all other deficits at this time. Onset: The symptoms/episode began/occurred this morning, last year. Severity of symptoms: At their worst the symptoms were severe incapacitating. The patient has experienced similar episodes in the past, a few times. The patient has not recently seen a physician. Historical: - Allergies: 17:24 No Known Allergies; ss - PMHx: 17:24 Arthritis; CVA; High Cholesterol; ss - Immunization history:: Client reports having NOT received the Covid vaccine. - Social history:: Smoking status: Patient denies any tobacco usage or history of. ROS: 17:29 Constitutional: Negative for fever, chills, and weight loss, Eyes: Negative for injury, kdr pain, redness, and discharge, ENT: Negative for injury, pain, and discharge, Neck: Negative for injury, pain, and swelling, Cardiovascular: Negative for chest pain, palpitations, and edema, Respiratory: Negative for shortness of breath, cough, wheezing, and pleuritic chest pain, Abdomen/GI: Negative for abdominal pain, nausea, vomiting, diarrhea, and constipation, Back: Negative for injury and pain, : Negative for injury, bleeding, discharge, and swelling, MS/Extremity: Negative for injury and deformity, Skin: Negative for injury, rash, and discoloration, Psych: Negative for depression, anxiety, suicide ideation, homicidal ideation, and hallucinations, Allergy/Immunology: Negative for hives, rash, and allergies, Endocrine: Negative for neck swelling, polydipsia, polyuria, polyphagia, and marked weight changes, Hematologic/Lymphatic: Negative for swollen nodes, abnormal bleeding, and unusual bruising. 17:29 Neuro: Positive for altered mental status, tremor, weakness, of the . Exam: 17:29 Constitutional: This is a well developed, well nourished patient who is awake, alert, kdr and in mild distress. Head/Face: Normocephalic, atraumatic. Eyes: Pupils equal round and reactive to light, extra-ocular motions intact. Lids and lashes normal. Conjunctiva and sclera are non-icteric and not injected. Cornea within normal limits. Periorbital areas with no swelling, redness, or edema. Neck: Trachea midline, no thyromegaly or masses palpated, and no cervical lymphadenopathy. Supple, full range of motion without nuchal rigidity, or vertebral point tenderness. No Meningismus. Chest/axilla: Normal chest wall appearance and motion. Nontender with no deformity. No lesions are appreciated. Cardiovascular: Regular rate and rhythm with a normal S1 and S2. No gallops, murmurs, or rubs. Normal PMI, no JVD. No pulse deficits. Respiratory: Lungs have equal breath sounds bilaterally, clear to auscultation and percussion. No rales, rhonchi or wheezes noted. No increased work of breathing, no retractions or nasal flaring. Abdomen/GI: Soft, non-tender, with normal bowel sounds. No distension or tympany. No guarding or rebound. No evidence of tenderness throughout. Back: No spinal tenderness. No costovertebral tenderness. Full range of motion. Skin: Warm, dry with normal turgor. Normal color with no rashes, no lesions, and no evidence of cellulitis. MS/ Extremity: Pulses equal, no cyanosis. Neurovascular intact. Full, normal range of motion. Psych: Awake, alert, with orientation to person, place and time. Behavior, mood, and affect are within normal limits. 17:29 Neuro: Orientation: appropriate for stated age, Memory: unable to test, Cranial nerves: no acute changes. Vital Signs: 17:11 BP 163 / 98; Pulse 85; Resp 20; Temp 98.0(O); Pulse Ox 100% on R/A; Weight 81.65 kg; ss Pain 9/10; 17:55 BP 169 / 63; Pulse 86; Pulse Ox 100% on R/A; ap3 18:40 BP 147 / 61; Pulse 88; Resp 16; Pulse Ox 98% on R/A; db 20:39 BP 128 / 58; Pulse 82; Resp 18; Pulse Ox 98% on R/A; kl MDM: 18:14 Patient medically screened. kdr 18:18 Data reviewed: vital signs, nurses notes, lab test result(s), EKG, radiologic studies. kdr Counseling: I had a detailed discussion with the patient and/or guardian regarding: the historical points, exam findings, and any diagnostic results supporting the discharge/admit diagnosis, lab results, radiology results, the need for outpatient follow up. 05/28 17:29 Order name: Basic Metabolic Panel; Complete Time: 18:16 kdr 05/28 17:29 Order name: CBC with Diff; Complete Time: 18:13 kdr 05/28 17:29 Order name: High Sensitivity Troponin; Complete Time: 18:16 kdr 05/28 17:29 Order name: Protime (+inr); Complete Time: 18:13 kdr 05/28 17:29 Order name: Ptt, Activated; Complete Time: 18:13 kdr 05/28 18:14 Order name: SARS RAPID la1 05/28 17:29 Order name: CT Stroke Brain w/o Contrast; Complete Time: 18:13 kdr 05/28 17:29 Order name: Stroke CXR 1 View; Complete Time: 18:39 kdr 05/28 17:29 Order name: EKG; Complete Time: 17:29 kdr 05/28 17:29 Order name: Accucheck; Complete Time: 17:54 kdr 05/28 17:29 Order name: Cardiac monitoring; Complete Time: 17:34 kdr 05/28 17:29 Order name: EKG - Nurse/Tech; Complete Time: 17:54 kdr 12 17:29 Order name: IV Saline Lock; Complete Time: 17:34 kdr 05/28 17:29 Order name: Labs collected and sent; Complete Time: 17:54 kdr 05/28 17:29 Order name: NPO; Complete Time: 17:34 kdr 05/28 17:29 Order name: O2 Per Protocol; Complete Time: 17:34 kdr 05/28 17:29 Order name: O2 Sat Monitoring; Complete Time: 17:34 kdr 05/28 17:29 Order name: Stroke Swallow Screen; Complete Time: 18:40 kdr Administered Medications: 18:50 Drug: Aspirin Chewable Tablet 324 mg Route: PO; bp Disposition Summary: 05/28/22 18:14 Hospitalization Ordered Hospitalization Status: Observation kdr Provider: Rufus Mclean Condition: Fair kdr Problem: new kdr Symptoms: have improved kdr Bed/Room Type: Standard kdr Location: [facility] ER HOLD(05/28/22 20:00) Room Assignment: ERHOLD-(05/28/22 20:00) Diagnosis - Weakness kdr - Chest pain, unspecified kdr Discharge Instructions: - Discharge Summary Sheet katy - COVID-19 katy - COVID-19: What Your Test Results Mean - [facility] katy - COVID-19 Frequently Asked Questions katy - Things to Know about the COVID-19 Pandemic - [facility] katy - COVID-19: Quarantine vs. Isolation - [facility] katy - Prevent the Spread of COVID-19 if You Are Sick - [facility] katy Forms: - Medication Reconciliation Form kdr - SBAR form kdr Signatures: Dispatcher [employer] EDMI Yaritza White RN RN Anand Miramontes MD MD [facility] Angelina Chang RN RN Marquis Dickson, [employer] ROOM ATTENDANT-C MEN'S LOCKER ROOM ATTENDANT-Cla1 Amandeep Chow RN RN bp Corrections: (The following items were deleted from the chart) 20:00 18:14 Telemetry/MedSurg (observation) kdr 20:00 18:14 kdr
--- NOTE | 2022-05-28 18:29 | RAD REPORT ---
EXAM DESCRIPTION: Mickie Single View05/28/2022 6:03 pm CLINICAL HISTORY: Chest pain COMPARISON: 2019 FINDINGS: The lungs appear clear of acute infiltrate. The heart is normal size IMPRESSION: No acute abnormalities displayed
--- NOTE | 2022-05-28 18:39 | P.HP ---
Certification for Inpatient Patient admitted to: Observation With expected LOS: <2 Midnights Patient will require the following post-hospital care: None Practitioner: I am a practitioner with admitting privileges, knowledge of patient current condition, hospital course, and medical plan of care. Services: Services provided to patient in accordance with Admission requirements found in Title 42 Section 412.3 of the Code of Federal Regulations Patient History Date of Service: 05/28/22 Reason for admission: Chest pain, dizziness History of Present Illness: 62-year-old female with history of hyperlipidemia, arthritis, previous CVA presents the emergency department for dizziness, weakness and chest pain. She reports she awoke this morning feeling "unwell" also feeling dizzy/unsteady. No focal neurological deficits were noted. This afternoon she developed chest tightness, nonradiating. She was evaluated here in the emergency department labs were significant for potassium 3.4 glucose 177 initial high-sensitivity troponin 5.1 CT head without contrast and chest x-ray were negative for acute findings. ED provider wishes to admit under observation for ACS rule out/MRI. Allergies No Known Allergies Allergy (Verified 11/25/17 23:01) Home Medications: Folic Acid 1 mg PO DAILY 11/25/17 Methotrexate Sodium [Methotrexate] 5 tab PO SEECOM 11/25/17 Aspirin Chewable [Aspirin Chewable*] 162 mg PO DAILY #60 tab.chew 07/31/18 Atorvastatin Calcium [Lipitor] 40 mg PO DAILY #30 tablet 07/31/18 Clopidogrel Bisulfate [Plavix*] 75 mg PO DAILY #30 tablet 07/31/18 - Past Medical/Surgical History Diabetic: No -: Arthritis -: CVA -: Hyperlipidemia -: None Psychosocial/ Personal History: Patient lives at home with family - Family History Mother -: Diabetes Sister -: Diabetes - Social History Smoking Status: Never smoker Alcohol use: No CD- Drugs: No Caffeine use: Yes Place of Residence: Home Review of Systems 10-point ROS is otherwise unremarkable Cardiovascular: Chest Pain Neurological: Weakness, Other (Dizzy) Physical Examination - Physical Exam General: Alert, In no apparent distress, Oriented x3 HEENT: Atraumatic, PERRLA, Mucous membr. moist/pink, EOMI, Sclerae nonicteric Neck: Supple, 2+ carotid pulse no bruit, No LAD, Without JVD or thyroid abnormality Respiratory: Clear to auscultation bilaterally, Normal air movement Cardiovascular: Regular rate/rhythm, Normal S1 S2 Capillary refill: <2 Seconds Gastrointestinal: Normal bowel sounds, No tenderness Musculoskeletal: No tenderness Integumentary: No rashes Neurological: Normal speech, Normal strength at 5/5 x4 extr, Normal tone, Normal affect, Other (NIH 0, generally weak) - Studies Laboratory Data (last 24 hrs) 05/28/22 17:42: PT 11.6, INR 1.05, APTT 34.3 05/28/22 17:42: WBC 9.00, Hgb 12.8, Hct 38.5, Plt Count 305 05/28/22 17:42: Sodium 139, Potassium 3.4 L, BUN 15, Creatinine 0.80, Glucose 177 H Assessment and Plan - Plan Assessment: Chest pain rule out ACS Dizziness/General weakness rule out CVA-history of CVA Hyperlipidemia Arthritis Plan: Chest pain rule out ACS: Trend troponins, cardiology consult, echocardiogram ordered. Monitor on telemetry. Aspirin, statin ordered. Dizziness/General weakness rule out CVA-history of CVA: NIH is 0, will obtain MRI, carotid Doppler, PT consult. Hyperlipidemia: Continue statin. Arthritis: Continue home meds DVT PPX: Lovenox Code status: Full Discharge Plan: Home Plan to discharge in: 48 Hours - Advance Directives Does patient have a Living Will: No Does patient have a Durable POA for Healthcare: No - Code Status/Comfort Care Code Status Assessed: Yes (Full code) Critical Care: No Time Spent Managing Pts Care (In Minutes): 70
[2022-05-28] MEDS ORDERED: ASPIRIN 81 MG CHEWABLE TABLET ONE (18:42)
[2022-05-28 19:18] LABS: SARS-CoV-2 Antigen Rapid Res Positive (Negative)
[2022-05-29 03:11] VITALS: TEMP 98
[2022-05-29 03:13] VITALS: O2SAT 98
[2022-05-29 03:15] VITALS: BP 128/58
--- NOTE | 2022-05-29 08:19 | P.DS ---
Admission Date: 05/28/22 Discharge Date: 05/28/22 Disposition: AMA-LEFT AGAINST MEDICAL ADVIC Reason for Admission: Chest pain, dizziness Hospital Course: I have never seen or evaluated Ms. Ade Grady. She was admitted by Marquis Dickson NP yesterday evening and left against medical advice prior to my shift starting. Rufus Mclean M.D. Vital Signs/Physical Exam: Temp Pulse Resp BP Pulse Ox 98.0 F 82 18 128/58 L 05/28/22 17:11 05/28/22 20:39 05/28/22 20:39 05/28/22 20:39 Laboratory Data at Discharge: WBC 9.00 K/uL (4.3-10.9) 05/28/22 17:42 Hgb 12.8 g/dL (12.0-15.0) 05/28/22 17:42 Hct 38.5 % (36.0-45.0) 05/28/22 17:42 Plt Count 305 K/uL (152-406) 05/28/22 17:42 PT 11.6 SECONDS (9.5-12.5) 05/28/22 17:42 INR 1.05 05/28/22 17:42 APTT 34.3 SECONDS (24.3-36.9) 05/28/22 17:42 Sodium 139 mmol/L (136-145) 05/28/22 17:42 Potassium 3.4 mmol/L (3.5-5.1) L 05/28/22 17:42 BUN 15 mg/dL (7-18) 05/28/22 17:42 Creatinine 0.80 mg/dL (0.55-1.3) 05/28/22 17:42 Glucose 177 mg/dL (74-106) H 05/28/22 17:42 Home Medications: RX: Folic Acid 1 mg PO DAILY 11/25/17 RX: Methotrexate Sodium [Methotrexate] 5 tab PO SEECOM 11/25/17 RX: Aspirin Chewable [Aspirin Chewable*] 162 mg PO DAILY #60 tab.chew 07/31/18 RX: Atorvastatin Calcium [Lipitor] 40 mg PO DAILY #30 tablet 07/31/18 RX: Clopidogrel Bisulfate [Plavix*] 75 mg PO DAILY #30 tablet 07/31/18 Followup: NONE,NONE [Primary Care Provider] -
== END 2022-05-28 20:40 | disposition left against medical advice (07) ==
LOC: ER 17:07 → ERHOLD 18:30
PROVIDERS: ADMIT Internal Medicine; ATTEND Internal Medicine
DX: R07.9 Chest pain, unspecified (principal); U07.1 COVID-19; E78.5 Hyperlipidemia, unspecified; M19.90 Unspecified osteoarthritis, unspecified site; R42 Dizziness and giddiness; R53.1 Weakness; Z53.29 Procedure and treatment not carried out because of patient's decision for other reasons
CPT/HCPCS: 36415; 70450; 71045; 80048; 84484; 85025; 85610; 85730; 87811; 93005; 99285; G0378